=== PATIENT | female | born 1990 | race Caucasian/White ===

== ENCOUNTER 2016-03-20 14:29 | Outpatient (CLI) | payer OTHER ==
[2016-03-20 15:09] LABS: AMORPHOUS SEDIMENT,URINE TRACE /HPF; APPEARANCE,URINE CLOUDY; BILIRUBIN,URINE NEGATIVE (NEGATIVE); GLUCOSE, URINE NEGATIVE (NEGATIVE); KETONES,URINE NEGATIVE (NEGATIVE); LEUKOCYTE ESTERASE,URINE SMALL (NEGATIVE); NITRITE,URINE NEGATIVE (NEGATIVE); PROTEIN,URINE NEGATIVE (NEGATIVE); URINE SPECIFIC GRAVITY 1.013; UROBILINOGEN,URINE NEGATIVE mg/dL (<2.0)
[2016-03-20 15:16] LABS: ABSOLUTE LYMPHOCYTES (AUTO) 2.1 10^3/uL (0.5-4.7); ABSOLUTE MONOCYTES (AUTO) 0.7 10^3/uL (0.1-1.4); ABSOLUTE NEUT (AUTO) 7.7 10^3/uL (1.7-8.2); BASOPHILS % (AUTO) 0.2 % (0-2); EOSINOPHILS % (AUTO) 0.3 % (0-6); HEMOGLOBIN 11.5 g/dL (12.0-15.5); HGB HCT DIFFERENCE 1.5; LYMPHOCYTES % (AUTO) 19.9 % (13-45); MEAN CORPUSCULAR HEMOGLOBIN 30.5 pg (27.0-33.4); MEAN CORPUSCULAR HGB CONC 34.7 g/dL (32.0-36.0); MEAN CORPUSCULAR VOLUME 88 fl (80-97); MONOCYTES % (AUTO) 6.4 % (3-13); RED BLOOD COUNT 3.76 10^6/uL (3.72-5.28); RED CELL DISTRIBUTION WIDTH 12.1 % (11.5-14.0); SEGMENTED NEUTROPHILS % (AUTO) 73.2 % (42-78); WHITE BLOOD COUNT 10.5 10^3/uL (4.0-10.5)
[2016-03-20 15:28] LABS: ALANINE AMINOTRANSFERASE 27 U/L (9-52); ALBUMIN 3.6 g/dL (3.5-5.0); ALKALINE PHOSPHATASE 91 U/L (38-126); ANION GAP 11 (5-19); ASPARTATE AMINO TRANSFERASE 19 U/L (14-36); BILIRUBIN,TOTAL 0.4 mg/dL (0.2-1.3); BLOOD UREA NITROGEN 8 mg/dL (7-20); CALCIUM 9.5 mg/dL (8.4-10.2); CARBON DIOXIDE 20 mmol/L (22-30); CHLORIDE 108 mmol/L (98-107); CREATININE RESULT 0.53 mg/dL (0.52-1.25); GLUCOSE 82 mg/dL (75-110); LDH 355 U/L (313-618); POTASSIUM 3.7 mmol/L (3.6-5.0); SODIUM 139.1 mmol/L (137-145); TOTAL PROTEIN 6.2 g/dL (6.3-8.2); URIC ACID 3.2 mg/dL (2.5-6.2)
[2016-03-20 15:29] LABS: URINE BARBITURATES SCREEN NEGATIVE; URINE METHADONE SCREEN NEGATIVE; URINE OPIATES LOW NEGATIVE; URINE PHENCYCLIDINE SCREEN NEGATIVE
--- NOTE | 2016-03-20 16:01 | L&D Flow Sheet ---
LD Flowsheet Datetime Report Generated by CPN: 03/20/2016 16:00 Datetime: 03/20/2016 15:52 Patient Care Comments: Pt to Radiology in stable condition via wheelchair with transport personell (Lilo Vitrano, RN) Datetime: 03/20/2016 15:46 NBP Sys/Isamar/Mean (mmHg): 129 (QS system process) : 85 (QS system process) : 103 (QS system process) Pulse: 98 (QS system process) LaborFlag: Labor (QS system process) Datetime: 03/20/2016 15:45 Assessment A Monitor Interventions for FHR: Ultrasound Adjusted (Lilo Vitrano, RN) Datetime: 03/20/2016 15:38 I/O Interventions: Up to BR (Lilo Vitrano, RN) Datetime: 03/20/2016 15:32 Communication Communication Comments: Dr. Cameron on unit, reviewed strip, reviewed resulted labs. Orders received for Lipase and Amylase. (Lilo Vitrano, RN) Datetime: 03/20/2016 15:24 NBP Sys/Isamar/Mean (mmHg): 126 (QS system process) : 72 (QS system process) : 93 (QS system process) Pulse: 99 (QS system process) LaborFlag: Labor (QS system process) Datetime: 03/20/2016 15:21 Assessment A Monitor Interventions for FHR: Ultrasound Adjusted (Lilo Vitrano, RN) Datetime: 03/20/2016 15:20 Comments: Tracing maternal HR d/t pt movement, RN at bedside (Lilo Vitrano, RN) Datetime: 03/20/2016 15:12 Communication Communication Comments: Mahad Kevin CNM on unit. Reviewed nursing assessment and VS with CNM. Orders for STAT abomindal U/S for RUQ pain and umbilicus pain. (Lilo Vitrano, RN) Datetime: 03/20/2016 15:09 NBP Sys/Isamar/Mean (mmHg): 125 (QS system process) : 73 (QS system process) : 92 (QS system process) Pulse: 108 (QS system process) Respirations: 16 (Lilo Vitrano, RN) LaborFlag: Labor (QS system process) Datetime: 03/20/2016 15:07 Patient Care Comments: Labs drawn (Lilo Vitrano, RN) Datetime: 03/20/2016 14:56 Vital Signs Stage of : Labor (Lilo Vitrano, RN) Pain Pain Scale: 4 (Lilo Vitrano, RN) Pain Presence: Intermittent (Lilo Vitrano, RN) Pain Type: Sharp; Stabbing (Lilo Vitrano, RN) Pain Location: Abdomen (Annotations: Umbilicus/RUQ pain) (Lilo Vitrano, RN) Pain Coping: Pt in no apparent distress; no grimacing/guarding with palpation. Grimacing noted. (Lilo Vitrano, RN) Pain Assessment Comments: Worsens with movement, improves with rest (Lilo Vitrano, RN) Vaginal Exam Membrane Status: Intact (Lilo Vitrano, RN) Vaginal Bleeding: None (Lilo Vitrano, RN) Maternal Assessment Level of Consciousness: Fully Conscious (Lilo Vitrano, RN) DTR's/Clonus: DTRs 2+; No Clonus (Lilo Vitrano, RN) Headache: Denies (Lilo Vitrano, RN) Breath Sounds, Left: Clear and Equal (Lilo Vitrano, RN) Breath Sounds, Right: Clear and Equal (Lilo Vitrano, RN) Nausea/Vomiting: Denies (Lilo Vitrano, RN) RUQ Epigastric Pain: Present (Lilo Vitrano, RN) LaborFlag: Labor (QS system process) Datetime: 03/20/2016 14:54 NBP Sys/Isamar/Mean (mmHg): 130 (QS system process) : 80 (QS system process) : 100 (QS system process) Pulse: 94 (QS system process) Respirations: 16 (Lilo Vitrano, RN) LaborFlag: Labor (QS system process) Datetime: 03/20/2016 14:51 Vital Signs Stage of : Labor (Lilo Corbin, RN) Patient Care Patient Position/Activity: Right Tilt; Semi-Fowlers (Lilo Corbin RN) I/O Interventions: Clear Liquids Given (Lilo Corbin, RN) Teaching Instructional Method: Verbal; Patient Instructed; Family/Support Person Instructed; Verbalized Understanding (Lilo Corbin RN) Plan of Care: Plan of Care Discussed (Lilo Corbin RN) Unit Routine: [place] to Room; Call [place]; Bed; Unit Personnel; Monitoring; Safety/Fall Risk Prevention; Bathroom Privileges (Lilo Corbin RN)
--- NOTE | 2016-03-20 18:01 | L&D Flow Sheet ---
LD Flowsheet Datetime Report Generated by CPN: 03/20/2016 18:00 Datetime: 03/20/2016 17:44 Comments: RN at bedside adjusting US; palpable movement (Lilo Vitrano, RN) Datetime: 03/20/2016 17:30 Comments: RN at bedside adjusting US (Lilo Vitrano, RN) Datetime: 03/20/2016 17:27 Communication Comments: Orders received from Dr. Cameron to reapply monitoring while awaiting other provider (Lilo Vitrano, RN) Datetime: 03/20/2016 17:23 Communication Comments: Dr. Cameron reviewing pt condition with hospitalist; provider to assess pt when available. (Lilo Vitrano, RN) Datetime: 03/20/2016 17:20 NBP Sys/Isamar/Mean (mmHg): 123 (QS system process) : 67 (QS system process) : 89 (QS system process) Pulse: 94 (QS system process) LaborFlag: Labor (QS system process) Datetime: 03/20/2016 17:17 Communication Comments: Dr. Cameron on unit. Reviewed pt history, nursing assessment, VS, toco tracing, FHTs, lab results and ultrasound results. No new orders at this time. (Lilo Vitrano, RN) Datetime: 03/20/2016 17:06 NBP Sys/Isamar/Mean (mmHg): 122 (QS system process) : 72 (QS system process) : 91 (QS system process) Pulse: 97 (QS system process) LaborFlag: Labor (QS system process) Datetime: 03/20/2016 16:51 Communication Comments: Dr. Cameron at bedside to assess pt (Lilo Corbin RN) Datetime: 03/20/2016 16:50 NBP Sys/Isamar/Mean (mmHg): 135 (QS system process) : 84 (QS system process) : 104 (QS system process) Pulse: 115 (QS system process) Respirations: 16 (Lilo Corbin RN) Patient Care Comments: Pt returned from Radiology in stable condition. Mahad Kevin CNM on unit, reviewed strip. No need to resume monitoring per CNM. (Lilo Corbin RN) LaborFlag: Labor (QS system process)
--- NOTE | 2016-03-20 19:29 | PDOC CONSULTATION ---
Consultation Consult Date: 03/20/16 Attending physician:: GILLES DOWNS Consult reason:: Abdominal pain History of Present Illness Admission Date/PCP: ELIDA RODRIGUEZ MD History of Present Illness: NIRANJAN MARTINES is a 25 year old female presents to elevate a 33 week intrauterine , uncomplicated, with proximally 1 week history of umbilical pain, and pain in the right side. Worse while standing up. She denies history of mass, trauma, previous surgery at the umbilicus. Is admitted for observation. She had imaging studies including abdominal ultrasound, laboratory studies all unremarkable. Surgery was consulted because of persisting abdominal pain. Past Surgical History Past Surgical History: Reports: Orthopedic Surgery - right knee Social History Smoking Status: Never Smoker Family History Family History: Reviewed & Not Pertinent Parental Family History Reviewed: Yes Children Family History Reviewed: Yes Sibling(s) Family History Reviewed.: Yes Medication/Allergy Home Medications: Calcium Carbonate [Tums] 1 tab.chew PO DAILY PRN 03/20/16 Allergies/Adverse Reactions: latex [Latex] Allergy (Verified 04/07/12 07:27) swelling Physical Exam Vital Signs: Intake & Output 03/19/16 03/20/16 03/21/16 06:59 06:59 06:59 Weight 79.55 kg General appearance: PRESENT: no acute distress, other - Patient hooked to intra uterine monitoring devices Eye exam: PRESENT: EOMI Mouth exam: PRESENT: moist Neck exam: PRESENT: full ROM Respiratory exam: PRESENT: clear to auscultation wanda GI/Abdominal exam: PRESENT: other - Abdomen is distended consistent with intrauterine at approximately 33 weeks. At the umbilicus, there is minimal eventration of the super umbilical skin in this area is very tender to the patient. It is very difficult to palpate a mass. There are no signs of inflammation. Results Laboratory Results: 03/20/16 14:05 03/20/16 15:05 03/20/16 03/20/16 03/20/16 14:05 14:40 15:05 WBC 10.5 RBC 3.76 Hgb 11.5 L Hct 33.0 L MCV 88 MCH 30.5 MCHC 34.7 RDW 12.1 Plt Count 190 Seg Neutrophils % 73.2 Lymphocytes % 19.9 Monocytes % 6.4 Eosinophils % 0.3 Basophils % 0.2 Absolute Neutrophils 7.7 Absolute Lymphocytes 2.1 Absolute Monocytes 0.7 Absolute Eosinophils 0.0 Absolute Basophils 0.0 Sodium 139.1 Potassium 3.7 Chloride 108 H Carbon Dioxide 20 L Anion Gap 11 BUN 8 Creatinine 0.53 Est GFR ( Amer) > 60 Est GFR (Non-Af Amer) > 60 Glucose 82 Uric Acid 3.2 Calcium 9.5 Total Bilirubin 0.4 AST 19 ALT 27 Alkaline Phosphatase 91 Total Protein 6.2 L Albumin 3.6 Amylase Lipase Urine Color YELLOW Urine Appearance CLOUDY Urine pH 7.0 Ur Specific [place] 1.013 Urine Protein NEGATIVE Urine Glucose (UA) NEGATIVE Urine Ketones NEGATIVE Urine Blood NEGATIVE Urine Nitrite NEGATIVE Ur Leukocyte Esterase SMALL H Urine WBC (Auto) 1 03/20/16 15:05 WBC RBC Hgb Hct MCV MCH MCHC RDW Plt Count Seg Neutrophils % Lymphocytes % Monocytes % Eosinophils % Basophils % Absolute Neutrophils Absolute Lymphocytes Absolute Monocytes Absolute Eosinophils Absolute Basophils Sodium Potassium Chloride Carbon Dioxide Anion Gap BUN Creatinine Est GFR ( Amer) Est GFR (Non-Af Amer) Glucose Uric Acid Calcium Total Bilirubin AST ALT Alkaline Phosphatase Total Protein Albumin Amylase 85 Lipase 122.0 Urine Color Urine Appearance Urine pH Ur Specific [place] Urine Protein Urine Glucose (UA) Urine Ketones Urine Blood Urine Nitrite Ur Leukocyte Esterase Urine WBC (Auto) Impressions: Pelvis Ultrasound 03/20/16 00:00 IMPRESSION: No evidence of placental abruption. Appendix not visualized. Trimester of : Third trimester - 28 weeks to delivery. Abdomen Ultrasound 03/20/16 15:13 IMPRESSION: No acute or suspicious findings. Limitation. Assessment & Plan - Diagnosis (1) Umbilical hernia Plan: 1. The patient has clinical manifestations of a small umbilical hernia. This may be congenital, or acquired, made worse by intra-abdominal distention related to the , and repeated standing. 2. I reviewed the path anatomy of this problem with the patient, as well as the L&D staff. I recommended nonoperative management, depression garment therapy, and cautious observation. In addition role of keeping his stools soft , and avoiding straining emphasized. 3. Patient can follow up with [facility], and if hernia does not resolve or become more symptomatic in the interim, referral to [place] [facility] would be appropriate. - Time Time Spent: 30 to 50 Minutes
== END 2016-03-20 19:07 | disposition home or self-care (01) ==
LOC: LC 14:29
PROVIDERS: ATTEND Student in an Organized Health Care Education/Training Program
PROC: 4A1HXCZ Monitoring of Products of Conception, Cardiac Rate, External Approach (ICD-10-PCS; principal; 2016-03-20)
DX: O99.613 Diseases of the digestive system complicating pregnancy, third trimester (principal); K42.9 Umbilical hernia without obstruction or gangrene; R10.9 Unspecified abdominal pain; Z3A.33 33 weeks gestation of pregnancy
CPT/HCPCS: 36415; 76705; 76857; 80053; 80307; 81001; 82150; 83615; 83690; 84550; 85025

== ENCOUNTER 2016-05-02 15:12 | Outpatient (CLI) | payer OTHER ==
--- NOTE | 2016-05-02 16:54 | Non Stress Test Report ---
Non Stress Test Datetime Report Generated by CPN: 05/02/2016 16:54 DEMOGRAPHIC EGA NST: 37.0 INDICATION Indication for Study: Ordered by Provider MONITORING Monitor Explained: Monitor Explained; Test Explained; Patient Verbalized Understanding Time on Monitor: 05/02/2016 15:27 Time off Monitor: 05/02/2016 16:35 NST Duration: 68 NST INTERVENTIONS Physician Notified NST: Dr. Cameron BABY A: [id number] BABY A Movement : Present Contraction Frequency : Irr FHR Baseline : 140 Accelerations : 15X15 Decelerations : None Variability : Moderate 6-25bpm NST Review: Meets Criteria for Reactive NST NST Review and Verified By : Maine Beard RNC NST Results: Reactive NST REPORT Report Trigger: Send Report
== END 2016-05-02 16:45 | disposition home or self-care (01) ==
LOC: LC 15:12
PROVIDERS: ATTEND Specialist
PROC: 4A1HXCZ Monitoring of Products of Conception, Cardiac Rate, External Approach (ICD-10-PCS; principal; 2016-05-02)
DX: O47.1 False labor at or after 37 completed weeks of gestation (principal); Z3A.37 37 weeks gestation of pregnancy
CPT/HCPCS: 59025

== ENCOUNTER 2016-05-08 16:12 | Outpatient (CLI) | payer OTHER ==
[2016-05-08 17:03] LABS: APPEARANCE,URINE SLIGHTLY-CLOUDY; BILIRUBIN,URINE NEGATIVE (NEGATIVE); GLUCOSE, URINE NEGATIVE (NEGATIVE); KETONES,URINE NEGATIVE (NEGATIVE); LEUKOCYTE ESTERASE,URINE MODERATE (NEGATIVE); NITRITE,URINE NEGATIVE (NEGATIVE); PROTEIN,URINE NEGATIVE (NEGATIVE); URINE SPECIFIC GRAVITY 1.015; UROBILINOGEN,URINE NEGATIVE mg/dL (<2.0)
[2016-05-08 17:07] LABS: ABSOLUTE LYMPHOCYTES (AUTO) 1.7 10^3/uL (0.5-4.7); ABSOLUTE MONOCYTES (AUTO) 0.6 10^3/uL (0.1-1.4); ABSOLUTE NEUT (AUTO) 6.2 10^3/uL (1.7-8.2); BASOPHILS % (AUTO) 0.2 % (0-2); EOSINOPHILS % (AUTO) 0.4 % (0-6); HEMATOCRIT 35.6 % (36.0-47.0); HEMOGLOBIN 11.9 g/dL (12.0-15.5); HGB HCT DIFFERENCE 0.1; LYMPHOCYTES % (AUTO) 19.7 % (13-45); MEAN CORPUSCULAR HEMOGLOBIN 29.3 pg (27.0-33.4); MEAN CORPUSCULAR HGB CONC 33.5 g/dL (32.0-36.0); MEAN CORPUSCULAR VOLUME 88 fl (80-97); MONOCYTES % (AUTO) 7.2 % (3-13); RED BLOOD COUNT 4.06 10^6/uL (3.72-5.28); RED CELL DISTRIBUTION WIDTH 15.2 % (11.5-14.0); SEGMENTED NEUTROPHILS % (AUTO) 72.5 % (42-78); WHITE BLOOD COUNT 8.6 10^3/uL (4.0-10.5)
[2016-05-08 17:19] LABS: ALANINE AMINOTRANSFERASE 51 U/L (9-52); ALBUMIN 3.6 g/dL (3.5-5.0); ALKALINE PHOSPHATASE 137 U/L (38-126); ANION GAP 12 (5-19); ASPARTATE AMINO TRANSFERASE 36 U/L (14-36); BILIRUBIN,DIRECT 0.1 mg/dL (0.0-0.4); BILIRUBIN,TOTAL 0.4 mg/dL (0.2-1.3); BLOOD UREA NITROGEN 8 mg/dL (7-20); CALCIUM 9.2 mg/dL (8.4-10.2); CARBON DIOXIDE 18 mmol/L (22-30); CHLORIDE 108 mmol/L (98-107); CREATININE RESULT 0.53 mg/dL (0.52-1.25); GLUCOSE 71 mg/dL (75-110); LDH 549 U/L (313-618); SODIUM 137.7 mmol/L (137-145); TOTAL PROTEIN 6.1 g/dL (6.3-8.2); URIC ACID 4.2 mg/dL (2.5-6.2)
[2016-05-08 17:19] LABS: URINE BARBITURATES SCREEN NEGATIVE; URINE METHADONE SCREEN NEGATIVE; URINE OPIATES LOW NEGATIVE; URINE PHENCYCLIDINE SCREEN NEGATIVE
--- NOTE | 2016-05-08 17:40 | Non Stress Test Report ---
Non Stress Test Datetime Report Generated by CPN: 05/08/2016 17:40 DEMOGRAPHIC EGA NST: 37.6 INDICATION Indication for Study: Gestational Hypertension; Ordered by Provider VITAL SIGNS Temperature - NST: 98.4 Pulse - NST: 107 RESP - NST: 16 NBPSYS NST: 115 NBPDIA NST: 55 MONITORING Monitor Explained: Monitor Explained; Test Explained; Patient Verbalized Understanding Time on Monitor: 05/08/2016 16:41 Time off Monitor: 05/08/2016 17:26 NST Duration: 45 NST INTERVENTIONS NST Interventions: PO Hydration; Reposition Patient Physician Notified NST: C CLARK, CNM BABY A Movement : Present Contraction Frequency : NONE FHR Baseline : 135 Accelerations : 15X15 Decelerations : None Variability : Moderate 6-25bpm NST Review: Meets Criteria for Reactive NST NST Review and Verified By : SAMMI KOHLER RN NST Results: Reactive NST REPORT Report Trigger: Send Report
== END 2016-05-08 17:21 | disposition home or self-care (01) ==
LOC: LC 16:12
PROVIDERS: ATTEND Obstetrics & Gynecology
PROC: 4A1HXCZ Monitoring of Products of Conception, Cardiac Rate, External Approach (ICD-10-PCS; principal; 2016-05-08)
DX: O13.3 Gestational [pregnancy-induced] hypertension without significant proteinuria, third trimester (principal); Z3A.37 37 weeks gestation of pregnancy
CPT/HCPCS: 36415; 59025; 80053; 80307; 81001; 83615; 84550; 85025

== ENCOUNTER 2016-05-09 19:11 | Inpatient (IN) | payer OTHER ==
--- NOTE | 2016-05-09 20:02 | L&D Flow Sheet ---
LD Flowsheet Datetime Report Generated by CPN: 05/09/2016 20:00 Datetime: 05/09/2016 19:58 NBP Sys/Isamar/Mean (mmHg): 115 (QS system process) : 60 (QS system process) : 79 (QS system process) Pulse: 94 (QS system process) LaborFlag: Labor (QS system process) Datetime: 05/09/2016 19:36 Pain Scale: 0 (Tasia Adhikari) Pain Presence: None/Denies (Tasia Adhikari) Membrane Status: Intact (Tasia Adhikari) Vaginal Bleeding: None (Tasia Adhikari) Level of Consciousness: Fully Conscious (Tasia Adhikari) DTR's/Clonus: DTRs 2+; No Clonus (Tasia Adhikari) Headache: Denies (Tasia Adhikari) Breath Sounds, Left: Clear and Equal (Tasia Adhikari) Breath Sounds, Right: Clear and Equal (Tasia Adhikari) Nausea/Vomiting: Denies (Tasia Adhikari) RUQ Epigastric Pain: Denies (Tasia Adhikari) IV/Blood Work: IV Started; IV Bolus Started (Annotations: 18g left hand) (Tasia Adhikari) Patient Position/Activity: Left Tilt (Tasia Adhikari) Instructional Method: Verbal (Tasia Adhikari) Plan of Care: Plan of Care Discussed; Vaginal Delivery (Tasia Adhikari) Unit Routine: [place] to Room; Call [place]; Bed; Visiting Policy; Waiting Areas; Infant Security; Phone/Cell Phone Use; Photography; Unit Personnel; Consents Signed; Handwashing; Flu/Illness Precautions; Monitoring; IV Pumps; Safety/Fall Risk Prevention; Diet/Nutrition Services; Bathroom Privileges; Routine Time Outs; Medications (Tasia Adhikari) LaborFlag: Labor (QS system process) Datetime: 05/09/2016 19:28 NBP Sys/Isamar/Mean (mmHg): 133 (QS system process) : 68 (QS system process) : 91 (QS system process) Pulse: 108 (QS system process) LaborFlag: Labor (QS system process) Datetime: 05/09/2016 19:23 Patient Care Comments: patient to the unit for induction of labor (Tasia Adhikari) Datetime: 05/08/2016 17:15 LaborFlag: Labor (QS system process) Datetime: 05/08/2016 17:00 LaborFlag: Labor (QS system process) Datetime: 05/08/2016 16:45 LaborFlag: Labor (QS system process) Datetime: 05/02/2016 15:29 LaborFlag: Labor (QS system process) Datetime: 03/20/2016 18:33 LaborFlag: Labor (QS system process) Datetime: 03/20/2016 18:04 LaborFlag: Labor (QS system process) Datetime: 03/20/2016 17:20 LaborFlag: Labor (QS system process) Datetime: 03/20/2016 17:06 LaborFlag: Labor (QS system process) Datetime: 03/20/2016 16:50 LaborFlag: Labor (QS system process) Datetime: 03/20/2016 15:46 LaborFlag: Labor (QS system process) Datetime: 03/20/2016 15:24 LaborFlag: Labor (QS system process) Datetime: 03/20/2016 15:09 LaborFlag: Labor (QS system process) Datetime: 03/20/2016 14:56 LaborFlag: Labor (QS system process)
[2016-05-09] MEDS ORDERED: DINOPROSTONE 10 MG VAGINAL INSERT.SR ONE (20:05)
[2016-05-09 20:06] LABS: APPEARANCE,URINE SLIGHTLY-CLOUDY; BILIRUBIN,URINE NEGATIVE (NEGATIVE); GLUCOSE, URINE NEGATIVE (NEGATIVE); KETONES,URINE NEGATIVE (NEGATIVE); LEUKOCYTE ESTERASE,URINE MODERATE (NEGATIVE); NITRITE,URINE NEGATIVE (NEGATIVE); PROTEIN,URINE NEGATIVE (NEGATIVE); URINE SPECIFIC GRAVITY 1.013; UROBILINOGEN,URINE NEGATIVE mg/dL (<2.0)
[2016-05-09 20:26] LABS: URINE BARBITURATES SCREEN NEGATIVE; URINE METHADONE SCREEN NEGATIVE; URINE OPIATES LOW NEGATIVE; URINE PHENCYCLIDINE SCREEN NEGATIVE
[2016-05-09 20:33] LABS: ABSOLUTE MONOCYTES (AUTO) 0.6 10^3/uL (0.1-1.4); ABSOLUTE NEUT (AUTO) 5.8 10^3/uL (1.7-8.2); BASOPHILS % (AUTO) 0.3 % (0-2); EOSINOPHILS % (AUTO) 0.3 % (0-6); HEMATOCRIT 31.1 % (36.0-47.0); HEMOGLOBIN 10.7 g/dL (12.0-15.5); LYMPHOCYTES % (AUTO) 23.5 % (13-45); MEAN CORPUSCULAR HEMOGLOBIN 30.1 pg (27.0-33.4); MEAN CORPUSCULAR HGB CONC 34.4 g/dL (32.0-36.0); MEAN CORPUSCULAR VOLUME 87 fl (80-97); MONOCYTES % (AUTO) 6.6 % (3-13); RED BLOOD COUNT 3.56 10^6/uL (3.72-5.28); RED CELL DISTRIBUTION WIDTH 15.6 % (11.5-14.0); SEGMENTED NEUTROPHILS % (AUTO) 69.3 % (42-78); WHITE BLOOD COUNT 8.3 10^3/uL (4.0-10.5)
[2016-05-09] MEDS ORDERED: MAG HYDROX/AL HYDROX/SIMETH SUSP 30 ML UDCUP ONE (22:20)
[2016-05-10] MEDS ORDERED: MISOPROSTOL 0.1 MG TABLET PV ONE ×2 (03:13→19:42)
[2016-05-10] MEDS ORDERED: RINGERS SOLUTION,LACTATED 300 ML IV ONE (03:14)
[2016-05-10] MEDS ORDERED: DINOPROSTONE 10 MG VAGINAL INSERT.SR PV PRN (03:14)
[2016-05-10] MEDS ORDERED: OXYTOCIN/NORMAL SALINE 1,000 ML IV PRN (03:14)
[2016-05-10] MEDS ORDERED: RINGERS SOLUTION,LACTATED 1,000 ML IV PRN (03:14)
[2016-05-10] MEDS ORDERED: MISOPROSTOL 0.1 MG TABLET ONE ×2 (03:27→19:40)
--- NOTE | 2016-05-10 08:01 | L&D Flow Sheet ---
LD Flowsheet Datetime Report Generated by CPN: 05/10/2016 08:00 Datetime: 05/10/2016 07:44 Monitor Mode: External (Melania Bellavance, RNC) Frequency (min): 0 (Melania Bellavance, RNC) Resting Tone (Palpate): Relaxed (Melania Bellavance, RNC) Monitor Mode: External US (Melania Bellavance, RNC) FHR Baseline Rate : 135 (Melania Bellavance, RNC) Variability: Moderate 6-25 bpm (Melania Bellavance, RNC) Accelerations: 15X15 (Melania Bellavance, RNC) Decelerations: None (Melania Bellavance, RNC) Patient Position/Activity: Right Tilt (Melania Bellavance, RNC) Communication Comments: oob monitors off (Melania Bellavance, RNC) Datetime: 05/10/2016 07:28 NBP Sys/Isamar/Mean (mmHg): 133 (QS system process) : 83 (QS system process) : 102 (QS system process) Pulse: 81 (QS system process) LaborFlag: Labor (QS system process) Datetime: 05/10/2016 07:22 Level of Consciousness: Fully Conscious (Melania Bellavance, RNC) DTR's/Clonus: DTRs 2+; No Clonus (Melania Bellavance, RNC) Headache: Denies (Melania Bellavance, RNC) Breath Sounds, Left: Clear and Equal (Melania Bellavance, RNC) Breath Sounds, Right: Clear and Equal (Melania Bellavance, RNC) Nausea/Vomiting: Denies (Melania Bellavance, RNC) RUQ Epigastric Pain: Denies (Melania Bellavance, RNC) Datetime: 05/10/2016 07:19 I/O Interventions: Up to BR (Melania Bellavance, RNC) Datetime: 05/10/2016 07:14 Monitor Mode: External (Melania Bellavance, RNC) Frequency (min): 0 (Melania Bellavance, RNC) Resting Tone (Palpate): Relaxed (Melania Bellavance, RNC) Monitor Mode: External US (Melania Bellavance, RNC) FHR Baseline Rate : 135 (Melania Bellavance, RNC) Variability: Moderate 6-25 bpm (Melania Bellavance, RNC) Accelerations: 15X15 (Melania Bellavance, RNC) Decelerations: None (Melania Bellavance, RNC) IV/Blood Work: IV Infusing per Order; New IV Bag Hung (Melania Bellavance, RNC) Patient Position/Activity: Right Tilt (Melania Bellavance, RNC) Datetime: 05/10/2016 07:00 I/O Interventions: Up to BR (Melania Bellavance, RNC) Datetime: 05/10/2016 06:58 NBP Sys/Isamar/Mean (mmHg): 133 (QS system process) : 83 (QS system process) : 103 (QS system process) Pulse: 88 (QS system process) LaborFlag: Labor (QS system process) Datetime: 05/10/2016 06:54 Respirations: 18 (Tasia Adhikari) Monitor Mode: External; Palpation (Tasia Adhikari) Monitor Interventions for UA: Viola Adjusted (Tasia Adhikari) Frequency (min): none (Tasia Adhikari) Resting Tone (Palpate): Relaxed (Tasia Adhikari) Monitor Mode: External US (Tasia Adhikari) Monitor Interventions for FHR: Ultrasound Adjusted (Tasia Adhikari) FHR Baseline Rate : 135 (Tasia Adhikari) Variability: Moderate 6-25 bpm (Tasia Adhikari) Accelerations: 15X15 (Tasia Adhikari) Decelerations: None (Tasia Adhikari) Patient Position/Activity: Right Tilt (Tasia Adhikari) LaborFlag: Labor (QS system process) Datetime: 05/10/2016 06:31 Respirations: 18 (Tasia Adhikari) Monitor Mode: External; Palpation (Tasia Adhikari) Monitor Interventions for UA: Viola Adjusted (Tasia Adhikari) Frequency (min): none (Tasia Adhikari) Resting Tone (Palpate): Relaxed (Tasia Adhikari) Monitor Mode: External US (Tasia Adhikari) Monitor Interventions for FHR: Ultrasound Adjusted (Tasia Adhikari) FHR Baseline Rate : 135 (Tasia Adhikari) Variability: Moderate 6-25 bpm (Tasia Adhikari) Accelerations: 15X15 (Tasia Adhikari) Decelerations: None (Tasia Adhikari) Patient Position/Activity: Right Tilt (Tasia Adhikari) LaborFlag: Labor (QS system process) Datetime: 05/10/2016 06:28 NBP Sys/Isamar/Mean (mmHg): 127 (QS system process) : 79 (QS system process) : 97 (QS system process) Pulse: 76 (QS system process) LaborFlag: Labor (QS system process) Datetime: 05/10/2016 06:19 Patient Care Comments: patient up to the restroom (Tasia Adhikari) Datetime: 05/10/2016 06:01 Respirations: 18 (Tasia Adhikari) Monitor Mode: External; Palpation (Tasia Adhikari) Monitor Interventions for UA: Viola Adjusted (Tasia Adhikari) Frequency (min): none (Tasia Adhikari) Resting Tone (Palpate): Relaxed (Tasia Adhikari) Monitor Mode: External US (Tasia Adhikari) Monitor Interventions for FHR: Ultrasound Adjusted (Tasia Adhikari) FHR Baseline Rate : 130 (Tasia Adhikari) FHR Baseline Changes: No Baseline Change (Tasia Adhikari) Variability: Moderate 6-25 bpm (Tasia Adhikari) Accelerations: 15X15 (Tasia Adhikari) Decelerations: None (Tasia Adhikari) Patient Position/Activity: Right Tilt (Tasia Adhikari) LaborFlag: Labor (QS system process) Datetime: 05/10/2016 05:58 NBP Sys/Isamar/Mean (mmHg): 121 (QS system process) : 79 (QS system process) : 93 (QS system process) Pulse: 79 (QS system process) LaborFlag: Labor (QS system process) Datetime: 05/10/2016 05:32 Patient Care Comments: patient up to the restroom (Tasia Adhikari) Datetime: 05/10/2016 05:30 Respirations: 18 (Tasia Adhikari) Monitor Mode: External; Palpation (Tasia Adhikari) Monitor Interventions for UA: Viola Adjusted (Tasia Adhikari) Frequency (min): 8 (Tasia Adhikari) Quality: Mild (Tasia Adhikari) Duration (sec): 60-110 (Tasia Adhikari) Resting Tone (Palpate): Relaxed (Tasia Adhikari) Monitor Mode: External US (Tasia Adhikari) Monitor Interventions for FHR: Ultrasound Adjusted (Tasia Adhikari) FHR Baseline Rate : 140 (Tasia Adhikari) Variability: Moderate 6-25 bpm (Tasia Adhikari) Accelerations: 15X15 (Tasia Adhikari) Decelerations: Variable (Tasia Adhikari) Patient Position/Activity: Left Tilt (Tasia Adhikari) LaborFlag: Labor (QS system process) Datetime: 05/10/2016 05:28 NBP Sys/Isamar/Mean (mmHg): 124 (QS system process) : 74 (QS system process) : 94 (QS system process) Pulse: 90 (QS system process) LaborFlag: Labor (QS system process) Datetime: 05/10/2016 05:00 Respirations: 18 (Tasia Adhikari) Monitor Mode: External; Palpation (Tasia Adhikari) Monitor Interventions for UA: Viola Adjusted (Tasia Adhikari) Frequency (min): one ctx noted (Tasia Adhikari) Quality: Mild (Tasia Adhikari) Duration (sec): 60 (Tasia Adhikari) Resting Tone (Palpate): Relaxed (Tasia Adhikari) Monitor Mode: External US (Tasia Adhikari) Monitor Interventions for FHR: Ultrasound Adjusted (Tasia Adhikari) FHR Baseline Rate : 135 (Tasia Adhikari) Variability: Moderate 6-25 bpm (Tasia Adhikari) Accelerations: 15X15 (Tasia Adhikari) Decelerations: None (Tasia Adhikari) Patient Position/Activity: Left Tilt (Tasia Adhikari) LaborFlag: Labor (QS system process) Datetime: 05/10/2016 04:58 NBP Sys/Isamar/Mean (mmHg): 121 (QS system process) : 60 (QS system process) : 83 (QS system process) Pulse: 83 (QS system process) LaborFlag: Labor (QS system process) Datetime: 05/10/2016 04:31 Patient Care Comments: patient up to the restroom (Tasia Adhikari) Datetime: 05/10/2016 04:30 NBP Sys/Isamar/Mean (mmHg): 103 (QS system process) : 59 (QS system process) : 77 (QS system process) Pulse: 89 (QS system process) Respirations: 18 (Tasia Adhikari) Monitor Mode: External; Palpation (Tasia Adhikari) Monitor Interventions for UA: Viola Adjusted (Tasia Adhikari) Frequency (min): none (Tasia Adhikari) Resting Tone (Palpate): Relaxed (Tasia Adhikari) Monitor Mode: External US (Tasia Adhikari) Monitor Interventions for FHR: Ultrasound Adjusted (Tasia Adhikari) FHR Baseline Rate : 135 (Tasia Adhikari) Variability: Moderate 6-25 bpm (Tasia Adhikari) Accelerations: 15X15 (Tasia Adhikari) Decelerations: None (Tasia Adhikari) Patient Position/Activity: Right Tilt (Tasia Adhikari) LaborFlag: Labor (QS system process) Datetime: 05/10/2016 04:00 NBP Sys/Isamar/Mean (mmHg): 116 (QS system process) : 54 (QS system process) : 78 (QS system process) Pulse: 90 (QS system process) Respirations: 18 (Tasia Adhikari) Monitor Mode: External; Palpation (Tasia Adhikari) Monitor Interventions for UA: Viola Adjusted (Tasia Adhikari) Frequency (min): none (Tasia Adhikari) Resting Tone (Palpate): Relaxed (Tasia Adhikari) Monitor Mode: External US (Tasia Adhikari) Monitor Interventions for FHR: Ultrasound Adjusted (Tasia Adhikari) FHR Baseline Rate : 135 (Tasia Adhikari) Variability: Moderate 6-25 bpm (Tasia Adhikari) Accelerations: 15X15 (Tasia Adhikari) Decelerations: None (Tasia Adhikari) Patient Position/Activity: Right Tilt (Tasia Adhikari) LaborFlag: Labor (QS system process) Datetime: 05/10/2016 03:30 Respirations: 18 (Tasia Adhikari) Monitor Mode: External; Palpation (Tasia Adhikari) Monitor Interventions for UA: Viola Adjusted (Tasia Adhikari) Frequency (min): none (Tasia Adhikari) Resting Tone (Palpate): Relaxed (Tasia Adhikari) Monitor Mode: External US (Tasia Adhikari) Monitor Interventions for FHR: Ultrasound Adjusted (Tasia Adhikari) FHR Baseline Rate : 135 (Tasia Adhikari) Variability: Moderate 6-25 bpm (Tasia Adhikari) Accelerations: 15X15 (Tasia Adhikari) Decelerations: None (Tasia Adhikari) Cervical Ripening Agents: Cytotec @ (Annotations: 25mcg) (Tasia Adhikari) Patient Position/Activity: Left Tilt (Tasia Adhikari) LaborFlag: Labor (QS system process) Datetime: 05/10/2016 03:29 NBP Sys/Isamar/Mean (mmHg): 123 (QS system process) : 69 (QS system process) : 90 (QS system process) Pulse: 105 (QS system process) LaborFlag: Labor (QS system process) Datetime: 05/10/2016 03:10 Provider Notified (Name): Fitz notified that the cervidil had fallen out. Cervix 1/thick/-2 no change. Orders recieved for one dose of cytotec now. (Tasia Adhikari) Datetime: 05/10/2016 03:04 Dilatation (cm): 1.0 (Tasia Adhikari) Effacement (%): thick (Tasia Adhikari) Station: -2 (Tasia Adhikari) Exam by: Mary Ellen Adhikari Rn (Tasia Adhikari) Datetime: 05/10/2016 03:03 Patient Care Comments: patient up to the restroom (Tasia Adhikari) Patient Care Comments: patient up to the restroom and states the cervidil fell out. The cervidil was laying in the toilet on assessment. (Tasia Adhikari) Datetime: 05/10/2016 03:00 Respirations: 18 (Tasia Adhikari) Monitor Mode: External; Palpation (Tasia Adhikari) Monitor Interventions for UA: Viola Adjusted (Tasia Adhikari) Frequency (min): occasional (Tasia Adhikari) Quality: Mild (Tasia Adhikari) Resting Tone (Palpate): Relaxed (Tasia Adhikari) Monitor Mode: External US (Tasia Adhikari) Monitor Interventions for FHR: Ultrasound Adjusted (Tasia Adhikari) FHR Baseline Rate : 140 (Tasia Adhikari) Variability: Moderate 6-25 bpm (Tasia Adhikari) Accelerations: 15X15 (Tasia Adhikari) Decelerations: None (Tasia Adhikari) Patient Position/Activity: Right Tilt (Tasia Adhikari) LaborFlag: Labor (QS system process) Datetime: 05/10/2016 02:58 NBP Sys/Isamar/Mean (mmHg): 125 (QS system process) : 65 (QS system process) : 88 (QS system process) Pulse: 94 (QS system process) LaborFlag: Labor (QS system process) Datetime: 05/10/2016 02:32 NBP Sys/Isamar/Mean (mmHg): 122 (QS system process) : 73 (QS system process) : 93 (QS system process) Pulse: 100 (QS system process) LaborFlag: Labor (QS system process) Datetime: 05/10/2016 02:28 Patient Care Comments: patient up to the restroom (Tasia Adhikari) Datetime: 05/10/2016 02:27 Respirations: 18 (Tasia Adhikari) Monitor Mode: External; Palpation (Tasia Adhikari) Monitor Interventions for UA: Viola Adjusted (Tasia Adhikari) Frequency (min): none (Tasia Adhikari) Resting Tone (Palpate): Relaxed (Tasia Adhikari) Monitor Mode: External US (Tasia Adhikari) Monitor Interventions for FHR: Ultrasound Adjusted (Tasia Adhikari) FHR Baseline Rate : 135 (Tasia Adhikari) FHR Baseline Changes: No Baseline Change (Tasia Adhikari) Variability: Moderate 6-25 bpm (Tasia Adhikari) Accelerations: 15X15 (Tasia Adhikari) Decelerations: None (Tasia Adhikari) Patient Position/Activity: Right Tilt (Tasia Adhikari) LaborFlag: Labor (QS system process) Datetime: 05/10/2016 01:59 Respirations: 18 (Tasia Adhikari) Monitor Mode: External; Palpation (Tasia Adhikari) Monitor Interventions for UA: Viola Adjusted (Tasia Adhikari) Frequency (min): none (Tasia Adhikari) Resting Tone (Palpate): Relaxed (Tasia Adhikari) Monitor Mode: External US (Tasia Adhikari) Monitor Interventions for FHR: Ultrasound Adjusted (Tasia Adhikari) FHR Baseline Rate : 135 (Tasia Adhikari) FHR Baseline Changes: No Baseline Change (Tasia Adhikari) Variability: Moderate 6-25 bpm (Tasia Adhikari) Accelerations: 15X15 (Tasia Adhikari) Decelerations: None (Tasia Adhikari) Patient Position/Activity: Right Tilt (Tasia Adhikari) LaborFlag: Labor (QS system process) Datetime: 05/10/2016 01:58 NBP Sys/Isamar/Mean (mmHg): 117 (QS system process) : 74 (QS system process) : 90 (QS system process) Pulse: 90 (QS system process) LaborFlag: Labor (QS system process) Datetime: 05/10/2016 01:49 Patient Care Comments: patient up to the restroom (Tasia Adhikari) Datetime: 05/10/2016 01:30 Respirations: 18 (Tasia Adhikari) Monitor Mode: External; Palpation (Tasia Adhikari) Monitor Interventions for UA: Viola Adjusted (Tasia Adhikari) Frequency (min): one ctx noted (Tasia Adhikari) Quality: Mild (Tasia Adhikari) Duration (sec): 110 (Tasia Adhikari) Resting Tone (Palpate): Relaxed (Tasia Adhikari) Monitor Mode: External US (Tasia Adhikari) Monitor Interventions for FHR: Ultrasound Adjusted (Tasia Adhikari) FHR Baseline Rate : 135 (Tasia Adhikari) Variability: Moderate 6-25 bpm (Tasia Adhikari) Accelerations: 15X15 (Tasia Adhikari) Decelerations: Late (Tasia Adhikari) Comments: one late noticed after the one contraction noted. (Tasia Adhikari) Patient Position/Activity: Right Tilt (Tasia Adhikari) LaborFlag: Labor (QS system process) Datetime: 05/10/2016 01:28 NBP Sys/Isamar/Mean (mmHg): 137 (QS system process) : 73 (QS system process) : 96 (QS system process) Pulse: 101 (QS system process) LaborFlag: Labor (QS system process) Datetime: 05/10/2016 01:09 Patient Position/Activity: Right Tilt (Tasia Adhikari) Patient Care Comments: rn at the bedside for maternal repositioning (Tasia Adhikari) Datetime: 05/10/2016 01:00 Respirations: 18 (Tasia Adhikari) Monitor Mode: External; Palpation (Tasia Adhikari) Monitor Interventions for UA: Viola Adjusted (Tasia Adhikari) Frequency (min): none (Tasia Adhikari) Resting Tone (Palpate): Relaxed (Tasia Adhikari) Monitor Mode: External US (Tasia Adhikari) Monitor Interventions for FHR: Ultrasound Adjusted (Tasia Adhikari) FHR Baseline Rate : 140 (Tasia Adhikari) Variability: Moderate 6-25 bpm (Tasia Adhikari) Accelerations: 15X15 (Tasia Adhikari) Decelerations: None (Tasia Adhikari) Patient Position/Activity: Left Tilt (Tasia Adhikari) LaborFlag: Labor (QS system process) Datetime: 05/10/2016 00:58 NBP Sys/Isamar/Mean (mmHg): 116 (QS system process) : 68 (QS system process) : 85 (QS system process) Pulse: 85 (QS system process) LaborFlag: Labor (QS system process) Datetime: 05/10/2016 00:37 Patient Care Comments: patient up to the restroom (Tasia Adhikari) Datetime: 05/10/2016 00:30 Respirations: 18 (Tasia Adhikari) Monitor Mode: External; Palpation (Tasia Adhikari) Monitor Interventions for UA: Viola Adjusted (Tasia Adhikari) Frequency (min): none (Tasia Adhikari) Resting Tone (Palpate): Relaxed (Tasia Adhikari) Monitor Mode: External US (Tasia Adhikari) Monitor Interventions for FHR: Ultrasound Adjusted (Tasia Adhikari) FHR Baseline Rate : 135 (Tasia Adhikari) FHR Baseline Changes: No Baseline Change (Tasia Adhikari) Variability: Moderate 6-25 bpm (Tasia Adhikari) Accelerations: 15X15 (Tasia Adhikari) Decelerations: None (Tasia Adhikari) Patient Position/Activity: Left Tilt (Tasia Adhikari) LaborFlag: Labor (QS system process) Datetime: 05/10/2016 00:29 Medication Comments: patient does not want ambien for sleep (Tasia Adhikari) Datetime: 05/10/2016 00:28 NBP Sys/Isamar/Mean (mmHg): 126 (QS system process) : 71 (QS system process) : 93 (QS system process) Pulse: 92 (QS system process) LaborFlag: Labor (QS system process) Datetime: 05/10/2016 00:00 Respirations: 18 (Tasia Adhikari) Monitor Mode: External; Palpation (Tasia Adhikari) Monitor Interventions for UA: Viola Adjusted (Tasia Adhikari) Frequency (min): none (Tasia Adhikari) Resting Tone (Palpate): Relaxed (Tasia Adhikari) Monitor Mode: External US (Tasia Adhikari) Monitor Interventions for FHR: Ultrasound Adjusted (Tasia Adhikari) FHR Baseline Rate : 135 (Tasia Adhikari) Variability: Moderate 6-25 bpm (Tasia Adhikari) Accelerations: 15X15 (Tasia Adhikari) Decelerations: None (Tasia Adhikari) Patient Position/Activity: Right Tilt (Tasia Adhikari) LaborFlag: Labor (QS system process) Datetime: 05/09/2016 23:58 NBP Sys/Isamar/Mean (mmHg): 120 (QS system process) : 68 (QS system process) : 89 (QS system process) Pulse: 94 (QS system process) LaborFlag: Labor (QS system process) Datetime: 05/09/2016 23:43 Patient Care Comments: patient up to the restroom (Tasia Adhikari) Datetime: 05/09/2016 23:30 Respirations: 18 (Tasia Adhikari) Monitor Mode: External; Palpation (Tasia Adhikari) Monitor Interventions for UA: Viola Adjusted (Tasia Adhikari) Frequency (min): none (Tasia Adhikari) Resting Tone (Palpate): Relaxed (Tasia Adhikari) Monitor Mode: External US (Tasia Adhikari) Monitor Interventions for FHR: Ultrasound Adjusted (Tasia Adhikari) FHR Baseline Rate : 130 (Tasia Adhikari) Variability: Moderate 6-25 bpm (Tasia Adhikari) Accelerations: 15X15 (Tasia Adhikari) Decelerations: None (Tasia Adhikari) Patient Position/Activity: Right Tilt (Tasia Adhikari) LaborFlag: Labor (QS system process) Datetime: 05/09/2016 23:28 NBP Sys/Isamar/Mean (mmHg): 102 (QS system process) : 53 (QS system process) : 74 (QS system process) Pulse: 93 (QS system process) LaborFlag: Labor (QS system process) Datetime: 05/09/2016 23:00 Respirations: 18 (Tasia Adhikari) Monitor Mode: External; Palpation (Tasia Adhikari) Monitor Interventions for UA: Viola Adjusted (Tasia Adhikari) Frequency (min): none (Tasia Adhikari) Resting Tone (Palpate): Relaxed (Tasia Adhikari) Monitor Mode: External US (Tasia Adhikari) Monitor Interventions for FHR: Ultrasound Adjusted (Tasia Adhikari) FHR Baseline Rate : 130 (Tasia Adhikari) Variability: Moderate 6-25 bpm (Tasia Adhikari) Accelerations: 15X15 (Tasia Adhikari) Decelerations: None (Tasia Adhikari) Patient Position/Activity: Left Tilt (Tasia Adhikari) LaborFlag: Labor (QS system process) Datetime: 05/09/2016 22:58 NBP Sys/Isamar/Mean (mmHg): 105 (QS system process) : 53 (QS system process) : 74 (QS system process) Pulse: 85 (QS system process) LaborFlag: Labor (QS system process) Datetime: 05/09/2016 22:43 Patient Care Comments: patient up to the restroom (Tasia Adhikari) Datetime: 05/09/2016 22:30 Respirations: 18 (Tasia Adhikari) Monitor Mode: External; Palpation (Tasia Adhikari) Monitor Interventions for UA: Viola Adjusted (Tasia Adhikari) Frequency (min): none (Tasia Adhikari) Resting Tone (Palpate): Relaxed (Tasia Adhikari) Monitor Mode: External US (Tasia Adhikari) Monitor Interventions for FHR: Ultrasound Adjusted (Tasia Adhikari) FHR Baseline Rate : 125 (Tasia Adhikari) Variability: Moderate 6-25 bpm (Tasia Adhikari) Accelerations: 15X15 (Tasia Adhikari) Decelerations: None (Tasia Adhikari) Patient Position/Activity: Right Tilt (Tasia Adhikari) LaborFlag: Labor (QS system process) Datetime: 05/09/2016 22:28 NBP Sys/Isamar/Mean (mmHg): 123 (QS system process) : 78 (QS system process) : 96 (QS system process) Pulse: 100 (QS system process) LaborFlag: Labor (QS system process) Datetime: 05/09/2016 22:20 Antiemetics/Antacids: Maalox PO (ml) @ (Tasia Adhikari) Datetime: 05/09/2016 22:12 Patient Care Comments: patient up to the restroom (Tasia Adhikari) Datetime: 05/09/2016 21:59 Respirations: 18 (Tasia Adhikari) Monitor Mode: External; Palpation (Tasia Adhikari) Monitor Interventions for UA: Viola Adjusted (Tasia Adhikari) Frequency (min): none (Tasia Adhikari) Resting Tone (Palpate): Relaxed (Tasia Adhikari) Monitor Mode: External US (Tasia Adhikari) Monitor Interventions for FHR: Ultrasound Adjusted (Tasia Adhikari) FHR Baseline Rate : 130 (Tasia Adhikari) FHR Baseline Changes: No Baseline Change (Tasia Adhikari) Variability: Moderate 6-25 bpm (Tasia Adhikari) Accelerations: 15X15 (Tasia Adhikari) Decelerations: None (Tasia Adhikari) Patient Position/Activity: Right Tilt (Tasia Adhikari) LaborFlag: Labor (QS system process) Datetime: 05/09/2016 21:58 NBP Sys/Isamar/Mean (mmHg): 124 (QS system process) : 76 (QS system process) : 93 (QS system process) Pulse: 96 (QS system process) LaborFlag: Labor (QS system process) Datetime: 05/09/2016 21:29 Respirations: 18 (Tasia Adhikari) Monitor Mode: External; Palpation (Tasia Adhikari) Monitor Interventions for UA: Viola Adjusted (Tasia Adhikari) Frequency (min): none (Tasia Adhikari) Resting Tone (Palpate): Relaxed (Tasia Adhikari) Monitor Mode: External US (Tasia Adhikari) Monitor Interventions for FHR: Ultrasound Adjusted (Tasia Adhikari) FHR Baseline Rate : 135 (Tasia Adhikari) Variability: Moderate 6-25 bpm (Tasia Adhikari) Accelerations: 15X15 (Tasia Adhikari) Decelerations: None (Tasia Adhikari) Patient Position/Activity: Right Tilt (Tasia Adhikari) LaborFlag: Labor (QS system process) Datetime: 05/09/2016 21:28 NBP Sys/Isamar/Mean (mmHg): 137 (QS system process) : 68 (QS system process) : 94 (QS system process) Pulse: 96 (QS system process) LaborFlag: Labor (QS system process) Datetime: 05/09/2016 20:59 Respirations: 18 (Tasia Adhikari) Monitor Mode: External; Palpation (Tasia Adhikari) Frequency (min): occasional (Tasia Adhikari) Quality: Mild (Tasia Adhikari) Resting Tone (Palpate): Relaxed (Tasia Adhikari) Monitor Mode: External US (Tasia Adhikari) Monitor Interventions for FHR: Ultrasound Adjusted (Tasia Adhikari) FHR Baseline Rate : 130 (Tasia Adhikari) Variability: Moderate 6-25 bpm (Tasia Adhikari) Accelerations: 15X15 (Tasia Adhikari) Decelerations: None (Tasia Adhikari) Patient Position/Activity: Right Tilt (Tasia Adhikari) LaborFlag: Labor (QS system process) Datetime: 05/09/2016 20:58 NBP Sys/Isamar/Mean (mmHg): 127 (QS system process) : 68 (QS system process) : 91 (QS system process) Pulse: 91 (QS system process) LaborFlag: Labor (QS system process) Datetime: 05/09/2016 20:29 Respirations: 18 (Tasia Adhikari) Monitor Mode: External; Palpation (Tasia Adhikari) Monitor Interventions for UA: Viola Adjusted (Tasia Adhikari) Frequency (min): none (Tasia Adhikari) Resting Tone (Palpate): Relaxed (Tasia Adhikari) Monitor Mode: External US (Tasia Adhikari) Monitor Interventions for FHR: Ultrasound Adjusted (Tasia Adhikari) FHR Baseline Rate : 135 (Tasia Adhikari) Variability: Moderate 6-25 bpm (Tasia Adhikari) Accelerations: 15X15 (Tasia Adhikari) Decelerations: None (Tasia Adhikari) Patient Position/Activity: Right Tilt (Tasai Adhikari) LaborFlag: Labor (QS system process) Datetime: 05/09/2016 20:28 NBP Sys/Isamar/Mean (mmHg): 120 (QS system process) : 78 (QS system process) : 94 (QS system process) Pulse: 93 (QS system process) LaborFlag: Labor (QS system process) Datetime: 05/09/2016 20:15 Dilatation (cm): 1.0 (Tasia Adhikari) Effacement (%): thick (Tasia Adhikari) Station: -2 (Tasia Adhikari) Exam by: Mary Ellen Adhikari Rn (Tasia Adhikari) Cervical Ripening Agents: Cervidil (Tasia Adhikari) Datetime: 05/09/2016 20:13 Patient Care Comments: patient up to the restroom (Tasia Adhikari)
[2016-05-10] MEDS ORDERED: OXYTOCIN/NORMAL SALINE 20 UNIT/1,000 ML RTUINJ ONE (08:37)
--- NOTE | 2016-05-10 08:49 | L&D Progress Notes ---
PROGRESS NOTES Datetime Report Generated by CPN: 05/10/2016 08:49 PROGRESS NOTE Plan: Continue Present Management; Induction Informed Consent Obtained: Vaginal Delivery; Risks, Benefits and Alternatives Discussed Vital Signs : Reviewed Comment: 25 yo admitted for IOL CHTN EDC 05/23/16 EGA 38.1 PMHX- umbilical hernia- surgical consult exposure to hsv taking valtrex pt never had episode abdomen soft and nontender except umbilicus from hernia fhts reactive cervix- /-2 posterior +3 DTRs +1 clonus no lesions noted lungs ctab bps 127/79- 130/80s denies blurred vision/ no headaches S1S2 no murmurs cervidil and cytotec last night start pitocin per protocol anticipate VAGINAL EXAM Dilatation: 1 Effacement: 75 Station: -2 MEMBRANES Membranes: Intact FETUS A Monitoring: External US Accelerations: 15X15 Decelerations: None FHR Category: Category I SIGNATURE SIGNATURE: [id number] SIGNATURE: [id number] SIGNATURE: [id number] Assignment: Fatuma Cornell MD Signature: with User ID: [email or web address] : with User ID: [email or web address]
--- NOTE | 2016-05-10 18:19 | L&D Progress Notes ---
PROGRESS NOTES Datetime Report Generated by CPN: 05/10/2016 18:19 PROGRESS NOTE Comment: 25 yo admitted for chtn/ iol pmhx- exposure to hsv/ no episodes allergies- latex abdomen nontender FHTs 120s cervix /-1 AROM clear pt tolerated well no lesions noted continue with pitocin augmentation pitocin currently at 12 milliunits/min pain management prn- pt considering epidural spouse at bedside anticipate VAGINAL EXAM Dilatation: 3 Effacement: 75 Station: -2 MEMBRANES Membranes: Ruptured Amniotic Fluid Color: Clear FETUS A FHR - Baseline: 120 Monitoring: External US Variability: Moderate 6-25bpm Accelerations: 15X15 Decelerations: None FHR Category: Category I : 38.1 FETUS C SIGNATURE: [id number] Assignment: Fatuma Cornell MD Signature: with User ID: [email or web address] : with User ID: [email or web address]
[2016-05-10] MEDS ORDERED: EPHEDRINE SULFATE INJ 50 MG/1 ML AMPULE ONE (18:53)
[2016-05-10] MEDS ORDERED: BUPIVACAINE HCL 0.25 % INJ/PF (2.5 MG/1 ML) 30 ML VIAL ONE (18:54)
[2016-05-10] MEDS ORDERED: FENTANYL/BUPIVACAINE/NS/PF 200 MCG/100 ML RTUINJ EPI ONE (18:54)
[2016-05-10] MEDS ORDERED: MISOPROSTOL 0.1 MG TABLET PO ONE (19:41)
--- NOTE | 2016-05-10 20:03 | L&D Flow Sheet ---
LD Flowsheet Datetime Report Generated by CPN: 05/10/2016 20:00 Datetime: 05/10/2016 19:58 NBP Sys/Isamar/Mean (mmHg): 132 (QS system process) : 79 (QS system process) : 100 (QS system process) Pulse: 86 (QS system process) LaborFlag: Labor (QS system process) Datetime: 05/10/2016 19:42 NBP Sys/Isamar/Mean (mmHg): 128 (QS system process) : 61 (QS system process) : 88 (QS system process) Pulse: 103 (QS system process) LaborFlag: Labor (QS system process) Datetime: 05/10/2016 19:34 Communication: Provider Orders Received; Report Given to @ Dr Cornell (Marissa Jeong RN) Communication Comments: Report to Dr Cornell, on unit, Orders for cytotec 50 mcg PO and 25 mcg cytotec PV (Marissa Jeong RN) Datetime: 05/10/2016 19:28 NBP Sys/Isamar/Mean (mmHg): 122 (QS system process) : 55 (QS system process) : 79 (QS system process) Pulse: 90 (QS system process) LaborFlag: Labor (QS system process) Datetime: 05/10/2016 19:26 NBP Sys/Isamar/Mean (mmHg): 103 (QS system process) : 55 (QS system process) : 74 (QS system process) Pulse: 100 (QS system process) LaborFlag: Labor (QS system process) Datetime: 05/10/2016 19:25 NBP Sys/Isamar/Mean (mmHg): 99 (QS system process) : 54 (QS system process) : 74 (QS system process) Pulse: 86 (QS system process) LaborFlag: Labor (QS system process) Datetime: 05/10/2016 19:23 NBP Sys/Isamar/Mean (mmHg): 114 (QS system process) : 58 (QS system process) : 83 (QS system process) Pulse: 110 (QS system process) LaborFlag: Labor (QS system process) Datetime: 05/10/2016 19:22 NBP Sys/Isamar/Mean (mmHg): 129 (QS system process) : 60 (QS system process) : 89 (QS system process) Pulse: 97 (QS system process) LaborFlag: Labor (QS system process) Datetime: 05/10/2016 19:21 NBP Sys/Isamar/Mean (mmHg): 129 (QS system process) : 65 (QS system process) : 86 (QS system process) Pulse: 107 (QS system process) Dilatation (cm): 1.0 (Melania Bellavance, RNC) Effacement (%): 50 (Melania Bellavance, RNC) Station: -2 (Melania Bellavance, RNC) Exam by: Maine Jeong RN (Melania Bellavance, RNC) Vaginal Exam Comments: outer os 2cm (Melania Bellavance, RNC) LaborFlag: Labor (QS system process) Datetime: 05/10/2016 19:20 NBP Sys/Isamar/Mean (mmHg): 132 (QS system process) : 63 (QS system process) : 90 (QS system process) Pulse: 102 (QS system process) I/O Interventions: Yousif Cath Inserted (Melania Bellavance, RNC) LaborFlag: Labor (QS system process) Datetime: 05/10/2016 19:19 NBP Sys/Isamar/Mean (mmHg): 141 (QS system process) : 78 (QS system process) : 101 (QS system process) Pulse: 107 (QS system process) LaborFlag: Labor (QS system process) Datetime: 05/10/2016 19:18 NBP Sys/Isamar/Mean (mmHg): 133 (QS system process) : 61 (QS system process) : 88 (QS system process) Pulse: 114 (QS system process) Anesthesia Comments: patient lying down and monitors reapplied (Melania Caldwell, RNC) LaborFlag: Labor (QS system process) Datetime: 05/10/2016 19:17 NBP Sys/Isamar/Mean (mmHg): 129 (QS system process) : 69 (QS system process) : 94 (QS system process) Pulse: 116 (QS system process) LaborFlag: Labor (QS system process) Datetime: 05/10/2016 19:16 NBP Sys/Isamar/Mean (mmHg): 147 (QS system process) : 67 (QS system process) : 97 (QS system process) Pulse: 122 (QS system process) Patient Position/Activity: Supine (Marissa Jeong RN) Epidural Procedure Other: Pump Started (Melania Caldwell, RNC) LaborFlag: Labor (QS system process) Datetime: 05/10/2016 19:15 NBP Sys/Isamar/Mean (mmHg): 135 (QS system process) : 81 (QS system process) : 101 (QS system process) Pulse: 100 (QS system process) LaborFlag: Labor (QS system process) Datetime: 05/10/2016 19:14 Medication Comments: Pitocin discontinued for epidural procedure (Marissa Jean-Paul, RN) Communication Comments: Bedside report from D [facility] RN, care assumed (Marissa Jean-Paul, RN) Datetime: 05/10/2016 19:13 NBP Sys/Isamar/Mean (mmHg): 149 (QS system process) : 78 (QS system process) : 107 (QS system process) Pulse: 101 (QS system process) LaborFlag: Labor (QS system process) Datetime: 05/10/2016 19:12 NBP Sys/Isamar/Mean (mmHg): 207 (QS system process) : 94 (QS system process) : 118 (QS system process) Pulse: 118 (QS system process) LaborFlag: Labor (QS system process) Datetime: 05/10/2016 19:11 Epidural Procedure: Cath Placed (Melania Bellavance, RNC) Epidural Procedure: Test Dose (Melania Bellavance, RNC) Datetime: 05/10/2016 19:10 NBP Sys/Isamar/Mean (mmHg): 153 (QS system process) : 80 (QS system process) : 101 (QS system process) Pulse: 121 (QS system process) LaborFlag: Labor (QS system process) Datetime: 05/10/2016 19:09 NBP Sys/Isamar/Mean (mmHg): 157 (QS system process) : 90 (QS system process) : 117 (QS system process) Pulse: 121 (QS system process) LaborFlag: Labor (QS system process) Datetime: 05/10/2016 19:08 NBP Sys/Isamar/Mean (mmHg): 159 (QS system process) : 80 (QS system process) : 112 (QS system process) Pulse: 112 (QS system process) LaborFlag: Labor (QS system process) Datetime: 05/10/2016 19:06 Procedure Verify: Correct Patient Identity; Correct Side and Site are Marked; Accurate Procedure Consent Form; Agreement on Procedure to be Done; Correct Patient Position (Melania Bellavance, RNC) Anesthesia Plans: Epidural (Melania Bellavance, RNC) Epidural Positioning: Sitting (Melania Bellavance, RNC) Anesthesia Comments: Dr Mcgowan (Melania Bellavance, RNC) Datetime: 05/10/2016 19:04 NBP Sys/Isamar/Mean (mmHg): 137 (QS system process) : 90 (QS system process) : 110 (QS system process) Pulse: 112 (QS system process) Respirations: 18 (Melania Bellavance, RNC) Monitor Mode: External (Melania Bellavance, RNC) Frequency (min): irreg (Melania Bellavance, RNC) Quality: Mild (Melania Bellavance, RNC) Duration (sec): 40-50 (Emlania Bellavance, RNC) Duration Criteria: Less than Two 120 Second Contractions (Melania Bellavance, RNC) Pattern: Normal: <= 5 Contractions in 10 Minutes (Melania Bellavance, RNC) Resting Tone (Palpate): Relaxed (Melania Bellavance, RNC) Monitor Mode: External US (Melania Bellavance, RNC) FHR Baseline Rate : 135 (Melania Bellavance, RNC) Variability: Moderate 6-25 bpm (Melania Bellavance, RNC) Accelerations: 15X15 (Melania Bellavance, RNC) Decelerations: None (Melania Bellavance, RNC) Pitocin (milliunit): Pitocin Remains (milliunits) @ (Melania Bellavance, RNC) LaborFlag: Labor (QS system process) Datetime: 05/10/2016 18:42 NBP Sys/Isamar/Mean (mmHg): 122 (QS system process) : 76 (QS system process) : 97 (QS system process) Pulse: 93 (QS system process) Monitor Mode: External (Melania Bellavance, RNC) Frequency (min): irreg (Melania Bellavance, RNC) Quality: Mild (Melania Bellavance, RNC) Duration (sec): 40-50 (Melania Bellavance, RNC) Duration Criteria: Less than Two 120 Second Contractions (Melania Bellavance, RNC) Pattern: Normal: <= 5 Contractions in 10 Minutes (Melania Bellavance, RNC) Resting Tone (Palpate): Relaxed (Melania Bellavance, RNC) Monitor Mode: External US (Melania Bellavance, RNC) FHR Baseline Rate : 135 (Melania Bellavance, RNC) Variability: Moderate 6-25 bpm (Melania Bellavance, RNC) Accelerations: 15X15 (Melania Bellavance, RNC) Decelerations: None (Melania Bellavance, RNC) Pitocin (milliunit): Pitocin Remains (milliunits) @ (Melania Bellavance, RNC) LaborFlag: Labor (QS system process) Datetime: 05/10/2016 18:27 NBP Sys/Isamar/Mean (mmHg): 136 (QS system process) : 97 (QS system process) : 112 (QS system process) Pulse: 111 (QS system process) Respirations: 18 (Melania Bellavance, RNC) Monitor Mode: External (Melania Bellavance, RNC) Frequency (min): irreg (Melania Bellavance, RNC) Quality: Mild (Melania Bellavance, RNC) Duration (sec): 40-50 (Melania Bellavance, RNC) Duration Criteria: Less than Two 120 Second Contractions (Melania Bellavance, RNC) Pattern: Normal: <= 5 Contractions in 10 Minutes (Melania Bellavance, RNC) Resting Tone (Palpate): Relaxed (Melania Bellavance, RNC) Monitor Mode: External US (Melania Bellavance, RNC) FHR Baseline Rate : 135 (Melania Bellavance, RNC) Variability: Moderate 6-25 bpm (Melania Bellavance, RNC) Accelerations: 15X15 (Melania Bellavance, RNC) Decelerations: None (Melania Bellavance, RNC) Pitocin (milliunit): Pitocin Remains (milliunits) @ (Melania Bellavance, RNC) LaborFlag: Labor (QS system process) Datetime: 05/10/2016 18:15 Monitor Mode: External (Melania Bellavance, RNC) Frequency (min): irreg (Melania Bellavance, RNC) Quality: Mild (Melania Bellavance, RNC) Duration (sec): 40-50 (Melania Bellavance, RNC) Duration Criteria: Less than Two 120 Second Contractions (Melania Bellavance, RNC) Pattern: Normal: <= 5 Contractions in 10 Minutes (Melania Bellavance, RNC) Resting Tone (Palpate): Relaxed (Melania Bellavance, RNC) Monitor Mode: External US (Melania Bellavance, RNC) FHR Baseline Rate : 135 (Melania Bellavance, RNC) Variability: Moderate 6-25 bpm (Melania Bellavance, RNC) Accelerations: 15X15 (Melania Bellavance, RNC) Decelerations: None (Melania Bellavance, RNC) Pitocin (milliunit): Pitocin Remains (milliunits) @ (Melania Bellavance, RNC) Datetime: 05/10/2016 18:09 Dilatation (cm): 3.0 (Melania Bellavance, RNC) Effacement (%): 75 (Melania Bellavance, RNC) Station: -2 (Melania Bellavance, RNC) Exam by: A Emmel CNM (Melania Bellavance, RNC) Membrane Status: Ruptured (Melania Bellavance, RNC) Membranes Rupture Method: Artificial (Melania Bellavance, RNC) Amniotic Fluid Amount: Scant (Melania Bellavance, RNC) Datetime: 05/10/2016 18:07 Dilatation (cm): 1.0 (Melania Bellavance, RNC) Effacement (%): 75 (Melania Bellavance, RNC) Station: -2 (Melania Bellavance, RNC) Exam by: A Emmel cnm (Melania Bellavance, RNC) Datetime: 05/10/2016 18:00 Monitor Mode: External (Melania Bellavance, RNC) Frequency (min): irreg (Melania Bellavance, RNC) Quality: Mild (Melania Bellavance, RNC) Duration (sec): 40-50 (Melania Bellavance, RNC) Duration Criteria: Less than Two 120 Second Contractions (Melania Bellavance, RNC) Pattern: Normal: <= 5 Contractions in 10 Minutes (Melania Bellavance, RNC) Resting Tone (Palpate): Relaxed (Melania Bellavance, RNC) Monitor Mode: External US (Melania Bellavance, RNC) FHR Baseline Rate : 135 (Melania Bellavance, RNC) Variability: Moderate 6-25 bpm (Melania Bellavance, RNC) Accelerations: 15X15 (Melania Bellavance, RNC) Decelerations: None (Melania Bellavance, RNC) Pitocin (milliunit): Pitocin Remains (milliunits) @ (Melania Bellavance, RNC) Datetime: 05/10/2016 17:43 NBP Sys/Isamar/Mean (mmHg): 129 (QS system process) : 79 (QS system process) : 99 (QS system process) Pulse: 83 (QS system process) Monitor Mode: External (Grace Marhefka, RN) Frequency (min): irreg (Grace Marhefka, RN) Quality: Mild (Grace Marhefka, RN) Duration (sec): 40-50 (Grace Marhefka, RN) Duration Criteria: Less than Two 120 Second Contractions (Grace Griffin, RN) Pattern: Normal: <= 5 Contractions in 10 Minutes (Grace Griffin, RN) Resting Tone (Palpate): Relaxed (Grace Griffin, RN) Monitor Mode: External US (Grace Griffin, RN) FHR Baseline Rate : 135 (Grace Griffin, RN) Variability: Moderate 6-25 bpm (Grace Griffin, RN) Accelerations: 15X15 (Grace Griffin, RN) Decelerations: None (Grace Griffin, RN) Pitocin (milliunit): Pitocin Remains (milliunits) @ (Grace Griffin, RN) LaborFlag: Labor (QS system process) Datetime: 05/10/2016 17:27 NBP Sys/Isamar/Mean (mmHg): 130 (QS system process) NBP Sys/Isamar/Mean (mmHg): 124 (QS system process) : 86 (QS system process) : 84 (QS system process) : 101 (QS system process) : 100 (QS system process) Pulse: 94 (QS system process) Pulse: 91 (QS system process) Respirations: 16 (Grace Griffin, RN) Monitor Mode: External (Grace Griffin RN) Frequency (min): irreg (Grace Griffin, RN) Quality: Mild (Grace Griffin, RN) Duration (sec): 40-50 (Grace Griffin, RN) Duration Criteria: Less than Two 120 Second Contractions (Grace Marhefka, RN) Pattern: Normal: <= 5 Contractions in 10 Minutes (Grace Marhefka, RN) Resting Tone (Palpate): Relaxed (Grace Markarenfka, RN) Monitor Mode: External US (Grace Griffin, RN) FHR Baseline Rate : 135 (Grace Marhefka, RN) Variability: Moderate 6-25 bpm (Grace Marhefka, RN) Accelerations: 15X15 (Grace Marhefka, RN) Decelerations: None (Grace Markarenfka, RN) Pitocin (milliunit): Pitocin Remains (milliunits) @ (Grace Finnfka, RN) LaborFlag: Labor (QS system process) Datetime: 05/10/2016 17:15 Monitor Mode: External (Grace Lamka, RN) Frequency (min): irreg (Grace Marhefka, RN) Quality: Mild (Grace Marhefka, RN) Duration (sec): 40-50 (Grace Marhefka, RN) Duration Criteria: Less than Two 120 Second Contractions (Grace Marhefka, RN) Pattern: Normal: <= 5 Contractions in 10 Minutes (Grace Marhefka, RN) Resting Tone (Palpate): Relaxed (Grace Markarenfka, RN) Monitor Mode: External US (Grace Griffin, RN) FHR Baseline Rate : 135 (Grace Marhefka, RN) Variability: Moderate 6-25 bpm (Grace Marhefka, RN) Accelerations: 15X15 (Grace Marhefka, RN) Decelerations: None (Grace Marhefka, RN) Pitocin (milliunit): Pitocin Remains (milliunits) @ (Annotations: 10) (Grace Marhefka, RN) Datetime: 05/10/2016 17:04 Monitor Mode: External (Grace Marhefka, RN) Frequency (min): irrit (Grace Marhefka, RN) Quality: Mild (Grace Marhefka, RN) Resting Tone (Palpate): Relaxed (Grace Marhefka, RN) Monitor Mode: External US (Grace Marhefka, RN) FHR Baseline Rate : 135 (Grace Marhefka, RN) Variability: Moderate 6-25 bpm (Grace Marhefka, RN) Accelerations: 10X10 (Grace Marhefka, RN) Decelerations: None (Grace Marhefka, RN) Datetime: 05/10/2016 16:45 Monitor Mode: External (Grace Marhefka, RN) Frequency (min): 2-3 (Grace Marhefka, RN) Quality: Mild (Grace Marhefka, RN) Duration (sec): 50-60 (Grace Griffin RN) Resting Tone (Palpate): Relaxed (Grace Griffin RN) Monitor Mode: External US (Grace Griffin RN) Monitor Interventions for FHR: Ultrasound Adjusted (Grace Griffin RN) FHR Baseline Rate : 135 (Grace Griffin RN) Variability: Moderate 6-25 bpm (Grace Griffin RN) Accelerations: 15X15 (Grace Griffin RN) Decelerations: None (Grace Griffin RN) Pain Scale: 0 (Grace Griffin RN) Pitocin (milliunit): Pitocin Remains (milliunits) @ (Grace Griffin RN) IV/Blood Work: IV Infusing per Order (Grace Griffin RN) I/O Interventions: Up to BR (rGace Griffin RN) LaborFlag: Labor (QS system process) Datetime: 05/10/2016 16:30 Monitor Mode: External (Melania Bellavance, RNC) Frequency (min): 2-3 (Melania Bellavance, RNC) Quality: Mild (Melania Bellavance, RNC) Duration (sec): 50-60 (Melania Bellavance, RNC) Resting Tone (Palpate): Relaxed (Melania Bellavance, RNC) Monitor Mode: External US (Melania Belldavonnce, RNC) Monitor Interventions for FHR: Ultrasound Adjusted (Melania Belldavonnce, RNC) FHR Baseline Rate : 135 (Melania Belldavonnce, RNC) Variability: Moderate 6-25 bpm (Melania Bellavance, RNC) Accelerations: 15X15 (Melania Bellavance, RNC) Decelerations: None (Melania Bellavance, RNC) Pain Scale: 0 (Melania Bellavance, RNC) Pitocin (milliunit): Pitocin Remains (milliunits) @ (Melania Bellavance, RNC) IV/Blood Work: IV Infusing per Order (Melania Bellavance, RNC) I/O Interventions: Up to BR (Melania Bellavance, RNC) LaborFlag: Labor (QS system process) Datetime: 05/10/2016 16:15 Monitor Mode: External (Melania Bellavance, RNC) Frequency (min): 2-3 (Melania Bellavance, RNC) Quality: Mild (Melania Bellavance, RNC) Duration (sec): 50-60 (Melania Bellavance, RNC) Resting Tone (Palpate): Relaxed (Melania Bellavance, RNC) Monitor Mode: External US (Melania Bellavance, RNC) Monitor Interventions for FHR: Ultrasound Adjusted (Melania Bellavance, RNC) FHR Baseline Rate : 135 (Melania Bellavance, RNC) Variability: Moderate 6-25 bpm (Melania Bellavance, RNC) Accelerations: 15X15 (Melania Bellavance, RNC) Decelerations: None (Melania Bellavance, RNC) Pain Scale: 0 (Melania Bellavance, RNC) Pitocin (milliunit): Pitocin Remains (milliunits) @ (Melania Bellavance, RNC) IV/Blood Work: IV Infusing per Order (Melania Bellavance, RNC) I/O Interventions: Up to BR (Melania Bellavance, RNC) LaborFlag: Labor (QS system process) Datetime: 05/10/2016 16:05 NBP Sys/Isamar/Mean (mmHg): 132 (QS system process) : 80 (QS system process) : 101 (QS system process) Pulse: 90 (QS system process) LaborFlag: Labor (QS system process) Datetime: 05/10/2016 16:01 Monitor Mode: External (Melania Bellavance, RNC) Frequency (min): 2-3 (Melania Bellavance, RNC) Quality: Mild (Melania Bellavance, RNC) Duration (sec): 50-60 (Melania Bellavance, RNC) Resting Tone (Palpate): Relaxed (Melania Bellavance, RNC) Monitor Mode: External US (Melania Bellavance, RNC) Monitor Interventions for FHR: Ultrasound Adjusted (Melania Bellavance, RNC) FHR Baseline Rate : 135 (Melania Bellavance, RNC) Variability: Moderate 6-25 bpm (Melania Bellavance, RNC) Accelerations: 15X15 (Melania Bellavance, RNC) Decelerations: None (Melania Bellavance, RNC) Pain Scale: 0 (Melania Bellavance, RNC) Pitocin (milliunit): Pitocin Remains (milliunits) @ (Melania Bellavance, RNC) IV/Blood Work: IV Infusing per Order (Melania Bellavance, RNC) I/O Interventions: Up to BR (Melania Bellavance, RNC) LaborFlag: Labor (QS system process) Datetime: 05/10/2016 15:45 Monitor Mode: External (Melania Bellavance, RNC) Frequency (min): 2-3 (Melania Bellavance, RNC) Quality: Mild (Melania Bellavance, RNC) Duration (sec): 50-60 (Melania Bellavance, RNC) Resting Tone (Palpate): Relaxed (Melania Bellavance, RNC) Monitor Mode: External US (Melania Bellavance, RNC) Monitor Interventions for FHR: Ultrasound Adjusted (Melania Bellavance, RNC) FHR Baseline Rate : 135 (Melanai Bellavance, RNC) Variability: Moderate 6-25 bpm (Melania Bellavance, RNC) Accelerations: 15X15 (Melania Bellavance, RNC) Decelerations: None (Melania Bellavance, RNC) Pain Scale: 0 (Melania Bellavance, RNC) Pitocin (milliunit): Pitocin Remains (milliunits) @ (Melania Bellavance, RNC) IV/Blood Work: IV Infusing per Order (Melania Bellavance, RNC) LaborFlag: Labor (QS system process) Datetime: 05/10/2016 15:30 Monitor Mode: External (Melania Bellavance, RNC) Frequency (min): 2-3 (Melania Bellavance, RNC) Quality: Mild (Melania Bellavance, RNC) Duration (sec): 50-60 (Melania Bellavance, RNC) Resting Tone (Palpate): Relaxed (Melania Bellavance, RNC) Monitor Mode: External US (Melania Bellavance, RNC) Monitor Interventions for FHR: Ultrasound Adjusted (Melania Bellavance, RNC) FHR Baseline Rate : 135 (Melania Bellavance, RNC) Variability: Moderate 6-25 bpm (Melania Bellavance, RNC) Accelerations: 15X15 (Melania Bellavance, RNC) Decelerations: None (Melania Bellavance, RNC) Pain Scale: 0 (Melania Bellavance, RNC) Pitocin (milliunit): Pitocin Remains (milliunits) @ (Melania Bellavance, RNC) IV/Blood Work: IV Infusing per Order (Melania Bellavance, RNC) LaborFlag: Labor (QS system process) Datetime: 05/10/2016 15:15 Monitor Mode: External (Melania Bellavance, RNC) Frequency (min): 2-3 (Melania Bellavance, RNC) Quality: Mild (Melania Bellavance, RNC) Duration (sec): 50-60 (Melania Bellavance, RNC) Resting Tone (Palpate): Relaxed (Melania Bellavance, RNC) Monitor Mode: External US (Melania Bellavance, RNC) Monitor Interventions for FHR: Ultrasound Adjusted (Melania Bellavance, RNC) FHR Baseline Rate : 135 (Melania Bellavance, RNC) Variability: Moderate 6-25 bpm (Melania Bellavance, RNC) Accelerations: 15X15 (Melania Bellavance, RNC) Decelerations: None (Melania Bellavance, RNC) Pain Scale: 0 (Melania Bellavance, RNC) Pitocin (milliunit): Pitocin Remains (milliunits) @ (Melania Bellavance, RNC) IV/Blood Work: IV Infusing per Order (Melania Bellavance, RNC) LaborFlag: Labor (QS system process) Datetime: 05/10/2016 15:03 Monitor Mode: External (Melania Bellavance, RNC) Frequency (min): 2-3 (Melania Bellavance, RNC) Quality: Mild (Melania Bellavance, RNC) Duration (sec): 50-60 (Melania Bellavance, RNC) Resting Tone (Palpate): Relaxed (Melania Bellavance, RNC) Monitor Mode: External US (Melania Bellavance, RNC) Monitor Interventions for FHR: Ultrasound Adjusted (Melania Bellavance, RNC) FHR Baseline Rate : 135 (Melania Bellavance, RNC) Variability: Moderate 6-25 bpm (Melania Bellavance, RNC) Accelerations: 15X15 (Melania Bellavance, RNC) Decelerations: None (Melania Bellavance, RNC) Pain Scale: 0 (Melania Bellavance, RNC) Pitocin (milliunit): Pitocin Remains (milliunits) @ (Melania Bellavance, RNC) IV/Blood Work: IV Infusing per Order (Melania Bellavance, RNC) LaborFlag: Labor (QS system process) Datetime: 05/10/2016 14:45 Monitor Mode: External (Melania Bellavance, RNC) Frequency (min): 2-3 (Melania Bellavance, RNC) Quality: Mild (Melania Bellavance, RNC) Duration (sec): 50-60 (Melania Bellavance, RNC) Resting Tone (Palpate): Relaxed (Melania Bellavance, RNC) Monitor Mode: External US (Melania Bellavance, RNC) Monitor Interventions for FHR: Ultrasound Adjusted (Melania Bellavance, RNC) FHR Baseline Rate : 135 (Melania Bellavance, RNC) Variability: Moderate 6-25 bpm (Melania Bellavance, RNC) Accelerations: 15X15 (Melania Bellavance, RNC) Decelerations: None (Melania Bellavance, RNC) Pain Scale: 0 (Melania Bellavance, RNC) Pitocin (milliunit): Pitocin Remains (milliunits) @ (Melania Bellavance, RNC) IV/Blood Work: IV Infusing per Order (Melania Bellavance, RNC) LaborFlag: Labor (QS system process) Datetime: 05/10/2016 14:30 Monitor Mode: External (Melania Bellavance, RNC) Frequency (min): 2-3 (Melania Bellavance, RNC) Quality: Mild (Melania Bellavance, RNC) Duration (sec): 50-60 (Melania Bellavance, RNC) Resting Tone (Palpate): Relaxed (Melania Bellavance, RNC) Monitor Mode: External US (Melania Bellavance, RNC) Monitor Interventions for FHR: Ultrasound Adjusted (Melania Bellavance, RNC) FHR Baseline Rate : 135 (Melania Bellavance, RNC) Variability: Moderate 6-25 bpm (Melania Bellavance, RNC) Accelerations: 15X15 (Melania Bellavance, RNC) Decelerations: None (Melania Bellavance, RNC) Pain Scale: 0 (Melania Bellavance, RNC) Pitocin (milliunit): Pitocin Remains (milliunits) @ (Melania Bellavance, RNC) IV/Blood Work: IV Infusing per Order (Melania Bellavance, RNC) LaborFlag: Labor (QS system process) Datetime: 05/10/2016 14:15 Monitor Mode: External (Melania Bellavance, RNC) Frequency (min): 2-3 (Melania Bellavance, RNC) Quality: Mild (Melania Bellavance, RNC) Duration (sec): 50-60 (Melania Bellavance, RNC) Resting Tone (Palpate): Relaxed (Melania Bellavance, RNC) Monitor Mode: External US (Melania Bellavance, RNC) Monitor Interventions for FHR: Ultrasound Adjusted (Melania Bellavance, RNC) FHR Baseline Rate : 135 (Melania Bellavance, RNC) Variability: Moderate 6-25 bpm (Melania Bellavance, RNC) Accelerations: 15X15 (Melania Bellavance, RNC) Decelerations: None (Melania Bellavance, RNC) Pain Scale: 0 (Melania Bellavance, RNC) Pitocin (milliunit): Pitocin Remains (milliunits) @ (Melania Bellavance, RNC) IV/Blood Work: IV Infusing per Order (Melania Bellavance, RNC) LaborFlag: Labor (QS system process) Datetime: 05/10/2016 13:57 Monitor Mode: External (Melania Bellavance, RNC) Frequency (min): 2-3 (Melania Bellavance, RNC) Quality: Mild (Melania Bellavance, RNC) Duration (sec): 50-60 (Melania Bellavance, RNC) Resting Tone (Palpate): Relaxed (Melania Bellavance, RNC) Monitor Mode: External US (Melania Bellavance, RNC) Monitor Interventions for FHR: Ultrasound Adjusted (Melania Bellavance, RNC) FHR Baseline Rate : 135 (Melania Bellavance, RNC) Variability: Moderate 6-25 bpm (Melania Bellavance, RNC) Accelerations: 15X15 (Melania Bellavance, RNC) Decelerations: None (Melania Bellavance, RNC) Pain Scale: 0 (Melania Bellavance, RNC) Pitocin (milliunit): Pitocin Remains (milliunits) @ (Melania Bellavance, RNC) IV/Blood Work: IV Infusing per Order (Melania Bellavance, RNC) LaborFlag: Labor (QS system process) Datetime: 05/10/2016 13:46 Monitor Mode: External (Melania Bellavance, RNC) Frequency (min): 2-3 (Melania Bellavance, RNC) Quality: Mild (Melania Bellavance, RNC) Duration (sec): 50-60 (Melania Bellavance, RNC) Resting Tone (Palpate): Relaxed (Melania Bellavance, RNC) Monitor Mode: External US (Melania Bellavance, RNC) Monitor Interventions for FHR: Ultrasound Adjusted (Melania Bellavance, RNC) FHR Baseline Rate : 135 (Melania Bellavance, RNC) Variability: Moderate 6-25 bpm (Melania Bellavance, RNC) Accelerations: 15X15 (Melania Bellavance, RNC) Decelerations: None (Melania Bellavance, RNC) Pain Scale: 0 (Melania Bellavance, RNC) Pitocin (milliunit): Pitocin Remains (milliunits) @ (Annotations: 10) (Melania Bellavance, RNC) IV/Blood Work: IV Infusing per Order (Melania Bellavance, RNC) LaborFlag: Labor (QS system process) Datetime: 05/10/2016 13:30 Monitor Mode: External (Melania Bellavance, RNC) Frequency (min): 2-3 (Melania Bellavance, RNC) Quality: Mild (Melania Bellavance, RNC) Duration (sec): 50-60 (Melania Bellavance, RNC) Resting Tone (Palpate): Relaxed (Melania Bellavance, RNC) Monitor Mode: External US (Melania Bellavance, RNC) Monitor Interventions for FHR: Ultrasound Adjusted (Melania Bellavance, RNC) FHR Baseline Rate : 135 (Melania Bellavance, RNC) Variability: Moderate 6-25 bpm (Melania Bellavance, RNC) Accelerations: 15X15 (Melania Bellavance, RNC) Decelerations: None (Melania Bellavance, RNC) Pain Scale: 0 (Melania Bellavance, RNC) Pitocin (milliunit): Pitocin Remains (milliunits) @ (Annotations: 10) (Melania Bellavance, RNC) IV/Blood Work: IV Infusing per Order (Melania Bellavance, RNC) LaborFlag: Labor (QS system process) Datetime: 05/10/2016 13:15 Monitor Mode: External (Melania Bellavance, RNC) Frequency (min): 2-3 (Melania Bellavance, RNC) Quality: Mild (Melania Bellavance, RNC) Duration (sec): 50-60 (Melania Bellavance, RNC) Resting Tone (Palpate): Relaxed (Melania Bellavance, RNC) Monitor Mode: External US (Melania Bellavance, RNC) Monitor Interventions for FHR: Ultrasound Adjusted (Melania Bellavance, RNC) FHR Baseline Rate : 135 (Melania Bellavance, RNC) Variability: Moderate 6-25 bpm (Melania Bellavance, RNC) Accelerations: 15X15 (Melania Bellavance, RNC) Decelerations: None (Melania Bellavance, RNC) Pain Scale: 0 (Melania Bellavance, RNC) Pitocin (milliunit): Pitocin Remains (milliunits) @ (Annotations: 10) (Melania Bellavance, RNC) IV/Blood Work: IV Infusing per Order (Melania Bellavance, RNC) LaborFlag: Labor (QS system process) Datetime: 05/10/2016 13:00 Monitor Mode: External (Melania Bellavance, RNC) Frequency (min): 2-5 (Melania Bellavance, RNC) Quality: Mild (Melania Bellavance, RNC) Duration (sec): 50-60 (Melania Bellavance, RNC) Resting Tone (Palpate): Relaxed (Melania Bellavance, RNC) Monitor Mode: External US (Melania Bellavance, RNC) Monitor Interventions for FHR: Ultrasound Adjusted (Melania Bellavance, RNC) FHR Baseline Rate : 135 (Melania Bellavance, RNC) Variability: Moderate 6-25 bpm (Melania Bellavance, RNC) Accelerations: 15X15 (Melania Bellavance, RNC) Decelerations: None (Melania Bellavance, RNC) Pain Scale: 0 (Melania Bellavance, RNC) Pitocin (milliunit): Pitocin Decreased to (milliunits) @ (Annotations: 10) (Melania Bellavance, RNC) IV/Blood Work: IV Infusing per Order (Melania Bellavance, RNC) LaborFlag: Labor (QS system process) Datetime: 05/10/2016 12:46 Monitor Mode: External (Melania Bellavance, RNC) Frequency (min): 2-5 (Melania Bellavance, RNC) Quality: Mild (Melania Bellavance, RNC) Duration (sec): 50-60 (Melania Bellavance, RNC) Resting Tone (Palpate): Relaxed (Melania Bellavance, RNC) Monitor Mode: External US (Melania Bellavance, RNC) Monitor Interventions for FHR: Ultrasound Adjusted (Melania Bellavance, RNC) FHR Baseline Rate : 135 (Melania Bellavance, RNC) Variability: Moderate 6-25 bpm (Melania Bellavance, RNC) Accelerations: 15X15 (Melania Bellavance, RNC) Decelerations: None (Melania Bellavance, RNC) Pain Scale: 0 (Melania Bellavance, RNC) Pitocin (milliunit): Pitocin Remains (milliunits) @ (Melania Bellavance, RNC) IV/Blood Work: IV Infusing per Order (Melania Bellavance, RNC) LaborFlag: Labor (QS system process) Datetime: 05/10/2016 12:30 Monitor Mode: External (Mealnia Bellavance, RNC) Frequency (min): 2-5 (Melania Bellavance, RNC) Quality: Mild (Melania Bellavance, RNC) Duration (sec): 50-60 (Melania Bellavance, RNC) Resting Tone (Palpate): Relaxed (Melania Bellavance, RNC) Monitor Mode: External US (Melania Bellavance, RNC) Monitor Interventions for FHR: Ultrasound Adjusted (Melania Bellavance, RNC) FHR Baseline Rate : 135 (Melania Bellavance, RNC) Variability: Moderate 6-25 bpm (Melania Bellavance, RNC) Accelerations: 15X15 (Melania Bellavance, RNC) Decelerations: None (Melanai Bellavance, RNC) Pain Scale: 0 (Melania Bellavance, RNC) Pitocin (milliunit): Pitocin Remains (milliunits) @ (Melania Bellavance, RNC) IV/Blood Work: IV Infusing per Order (Melania Bellavance, RNC) LaborFlag: Labor (QS system process) Datetime: 05/10/2016 12:24 NBP Sys/Isamar/Mean (mmHg): 134 (QS system process) : 88 (QS system process) : 105 (QS system process) Pulse: 92 (QS system process) Respirations: 16 (Melania Bellavance, RNC) LaborFlag: Labor (QS system process) Datetime: 05/10/2016 12:15 Monitor Mode: External (Melania Bellavance, RNC) Frequency (min): 2-5 (Melania Bellavance, RNC) Quality: Mild (Melania Bellavance, RNC) Duration (sec): 50-60 (Melania Bellavance, RNC) Resting Tone (Palpate): Relaxed (Melania Bellavance, RNC) Monitor Mode: External US (Melania Bellavance, RNC) Monitor Interventions for FHR: Ultrasound Adjusted (Melania Bellavance, RNC) FHR Baseline Rate : 135 (Melania Bellavance, RNC) Variability: Moderate 6-25 bpm (Melania Bellavance, RNC) Accelerations: 15X15 (Melania Bellavance, RNC) Decelerations: None (Melania Bellavance, RNC) Pain Scale: 0 (Melania Bellavance, RNC) Pitocin (milliunit): Pitocin Remains (milliunits) @ (Melania Bellavance, RNC) IV/Blood Work: IV Infusing per Order (Melania Bellavance, RNC) LaborFlag: Labor (QS system process) Datetime: 05/10/2016 12:00 Monitor Mode: External (Melania Bellavance, RNC) Frequency (min): 2-5 (Melania Bellavance, RNC) Quality: Mild (Melania Bellavance, RNC) Duration (sec): 50-60 (Melania Bellavance, RNC) Duration Criteria: Less than Two 120 Second Contractions (Melania Bellavance, RNC) Pattern: Normal: <= 5 Contractions in 10 Minutes (Melania Bellavance, RNC) Resting Tone (Palpate): Relaxed (Melania Bellavance, RNC) Monitor Mode: External US (Melania Bellavance, RNC) Monitor Interventions for FHR: Ultrasound Adjusted (Melania Bellavance, RNC) FHR Baseline Rate : 135 (Melania Bellavance, RNC) Variability: Moderate 6-25 bpm (Melania Bellavance, RNC) Accelerations: 15X15 (Melania Bellavance, RNC) Decelerations: None (Melania Bellavance, RNC) Pain Scale: 0 (Melania Bellavance, RNC) Pitocin (milliunit): Pitocin Remains (milliunits) @ (Melania Bellavance, RNC) IV/Blood Work: IV Infusing per Order (Melania Bellavance, RNC) LaborFlag: Labor (QS system process) Datetime: 05/10/2016 11:43 Monitor Mode: External (Melania Bellavance, RNC) Frequency (min): 2-5 (Melania Bellavance, RNC) Quality: Mild (Melania Bellavance, RNC) Duration (sec): 50-60 (Melania Bellavance, RNC) Duration Criteria: Less than Two 120 Second Contractions (Melania Bellavance, RNC) Pattern: Normal: <= 5 Contractions in 10 Minutes (Melania Bellavance, RNC) Resting Tone (Palpate): Relaxed (Melania Bellavance, RNC) Monitor Mode: External US (Melania Bellavance, RNC) Monitor Interventions for FHR: Ultrasound Adjusted (Melania Bellavance, RNC) FHR Baseline Rate : 135 (Melania Bellavance, RNC) Variability: Moderate 6-25 bpm (Melania Bellavance, RNC) Accelerations: 15X15 (Melania Bellavance, RNC) Decelerations: None (Melania Bellavance, RNC) Pain Scale: 0 (Melania Bellavance, RNC) Pitocin (milliunit): Pitocin Remains (milliunits) @ (Melania Bellavance, RNC) IV/Blood Work: IV Infusing per Order (Melania Bellavance, RNC) LaborFlag: Labor (QS system process) Datetime: 05/10/2016 11:30 Monitor Mode: External (Melania Bellavance, RNC) Monitor Interventions for UA: [place] Adjusted (Melania Bellavance, RNC) Frequency (min): 0 (Melania Bellavance, RNC) Resting Tone (Palpate): Relaxed (Melania Bellavance, RNC) Monitor Mode: External US (Melania Bellavance, RNC) Monitor Interventions for FHR: Ultrasound Adjusted (Melania Bellavance, RNC) FHR Baseline Rate : 135 (Melania Bellavance, RNC) Variability: Moderate 6-25 bpm (Melania Bellavance, RNC) Accelerations: 15X15 (Melania Bellavance, RNC) Decelerations: None (Melania Bellavance, RNC) Pain Scale: 0 (Melania Bellavance, RNC) Pitocin (milliunit): Pitocin Remains (milliunits) @ (Melania Bellavance, RNC) IV/Blood Work: IV Infusing per Order (Melania Bellavance, RNC) LaborFlag: Labor (QS system process) Datetime: 05/10/2016 11:15 Monitor Mode: External (Melania Bellavance, RNC) Monitor Interventions for UA: [place] Adjusted (Melania Bellavance, RNC) Frequency (min): 0 (Melania Bellavance, RNC) Resting Tone (Palpate): Relaxed (Melania Bellavance, RNC) Monitor Mode: External US (Melania Bellavance, RNC) Monitor Interventions for FHR: Ultrasound Adjusted (Melania Bellavance, RNC) FHR Baseline Rate : 135 (Melania Bellavance, RNC) Variability: Moderate 6-25 bpm (Melania Bellavance, RNC) Accelerations: 15X15 (Melania Bellavance, RNC) Decelerations: None (Melania Bellavance, RNC) Pain Scale: 0 (Melania Bellavance, RNC) Pitocin (milliunit): Pitocin Remains (milliunits) @ (Annotations: 20) (Melania Bellavance, RNC) IV/Blood Work: IV Infusing per Order (Melania Bellavance, RNC) LaborFlag: Labor (QS system process) Datetime: 05/10/2016 11:04 NBP Sys/Isamar/Mean (mmHg): 142 (QS system process) : 85 (QS system process) : 108 (QS system process) Pulse: 95 (QS system process) Respirations: 16 (Melania Bellavance, RNC) Monitor Mode: External (Melania Bellavance, RNC) Monitor Interventions for UA: [place] Adjusted (Melania Bellavance, RNC) Frequency (min): 0 (Melania Bellavance, RNC) Resting Tone (Palpate): Relaxed (Melania Bellavance, RNC) Monitor Mode: External US (Melania Bellavance, RNC) Monitor Interventions for FHR: Ultrasound Adjusted (Melania Bellavance, RNC) FHR Baseline Rate : 135 (Melania Bellavance, RNC) Variability: Moderate 6-25 bpm (Melania Bellavance, RNC) Accelerations: 15X15 (Melania Bellavance, RNC) Decelerations: None (Melania Bellavance, RNC) Pain Scale: 0 (Melania Bellavance, RNC) Pitocin (milliunit): Pitocin Increased to (milliunits) @ (Annotations: 20) (Melania Bellavance, RNC) IV/Blood Work: IV Infusing per Order (Melania Bellavance, RNC) LaborFlag: Labor (QS system process) Datetime: 05/10/2016 10:46 Monitor Mode: External (Melania Bellavance, RNC) Monitor Interventions for UA: [place] Adjusted (Melania Bellavance, RNC) Frequency (min): 0 (Melania Bellavance, RNC) Resting Tone (Palpate): Relaxed (Melania Bellavance, RNC) Monitor Mode: External US (Melania Bellavance, RNC) Monitor Interventions for FHR: Ultrasound Adjusted (Melania Bellavance, RNC) FHR Baseline Rate : 135 (Melania Bellavance, RNC) Variability: Moderate 6-25 bpm (Melania Bellavance, RNC) Accelerations: 15X15 (Melania Bellavance, RNC) Decelerations: None (Melania Bellavance, RNC) Pain Scale: 0 (Melania Bellavance, RNC) Pitocin (milliunit): Pitocin Increased to (milliunits) @ (Annotations: 18) (Melania Bellavance, RNC) IV/Blood Work: IV Infusing per Order (Melania Bellavance, RNC) LaborFlag: Labor (QS system process) Datetime: 05/10/2016 10:31 NBP Sys/Isamar/Mean (mmHg): 130 (QS system process) : 76 (QS system process) : 95 (QS system process) Pulse: 100 (QS system process) Respirations: 18 (Melania Bellavance, RNC) Monitor Mode: External (Melania Bellavance, RNC) Monitor Interventions for UA: [place] Adjusted (Melania Bellavance, RNC) Frequency (min): 0 (Melania Bellavance, RNC) Resting Tone (Palpate): Relaxed (Melania Bellavance, RNC) Monitor Mode: External US (Melania Bellavance, RNC) Monitor Interventions for FHR: Ultrasound Adjusted (Melania Bellavance, RNC) FHR Baseline Rate : 135 (Melania Bellavance, RNC) Variability: Moderate 6-25 bpm (Melania Bellavance, RNC) Accelerations: 15X15 (Melania Bellavance, RNC) Decelerations: None (Melania Bellavance, RNC) Pain Scale: 0 (Melania Bellavance, RNC) Pitocin (milliunit): Pitocin Increased to (milliunits) @ (Annotations: 16) (Melania Bellavance, RNC) IV/Blood Work: IV Infusing per Order (Melaina Bellavance, RNC) LaborFlag: Labor (QS system process) Datetime: 05/10/2016 10:15 Monitor Mode: External (Melania Bellavance, RNC) Monitor Interventions for UA: [place] Adjusted (Melania Bellavance, RNC) Frequency (min): 0 (Melania Bellavance, RNC) Resting Tone (Palpate): Relaxed (Melania Bellavance, RNC) Monitor Mode: External US (Melania Bellavance, RNC) Monitor Interventions for FHR: Ultrasound Adjusted (Melania Bellavance, RNC) FHR Baseline Rate : 135 (Melania Bellavance, RNC) Variability: Moderate 6-25 bpm (Melania Bellavance, RNC) Accelerations: 15X15 (Melania Bellavance, RNC) Decelerations: None (Melania Bellavance, RNC) Pain Scale: 0 (Melania Bellavance, RNC) Pitocin (milliunit): Pitocin Increased to (milliunits) @ (Annotations: 14) (Melania Bellavance, RNC) IV/Blood Work: IV Infusing per Order (Melania Bellavance, RNC) LaborFlag: Labor (QS system process) Datetime: 05/10/2016 10:00 Monitor Mode: External (Mleania Bellavance, RNC) Monitor Interventions for UA: [place] Adjusted (Melania Bellavance, RNC) Frequency (min): 0 (Melania Bellavance, RNC) Resting Tone (Palpate): Relaxed (Melania Bellavance, RNC) Monitor Mode: External US (Melania Bellavance, RNC) Monitor Interventions for FHR: Ultrasound Adjusted (Melania Bellavance, RNC) FHR Baseline Rate : 135 (Melania Bellavance, RNC) Variability: Moderate 6-25 bpm (Melania Bellavance, RNC) Accelerations: 15X15 (Melania Bellavance, RNC) Decelerations: None (Melania Bellavance, RNC) Pain Scale: 0 (Melania Bellavance, RNC) Pitocin (milliunit): Pitocin Increased to (milliunits) @ (Annotations: 12) (Melania Bellavance, RNC) IV/Blood Work: IV Infusing per Order (Melania Bellavance, RNC) LaborFlag: Labor (QS system process) Datetime: 05/10/2016 09:46 Monitor Mode: External (Melania Bellavance, RNC) Monitor Interventions for UA: [place] Adjusted (Melania Bellavance, RNC) Frequency (min): 0 (Melania Bellavance, RNC) Resting Tone (Palpate): Relaxed (Melania Bellavance, RNC) Monitor Mode: External US (Melania Bellavance, RNC) Monitor Interventions for FHR: Ultrasound Adjusted (Melania Bellavance, RNC) FHR Baseline Rate : 135 (Melania Bellavance, RNC) Variability: Moderate 6-25 bpm (Melania Bellavance, RNC) Accelerations: 15X15 (Melania Bellavance, RNC) Decelerations: None (Melania Bellavance, RNC) Pain Scale: 0 (Melania Bellavance, RNC) Pitocin (milliunit): Pitocin Increased to (milliunits) @ (Annotations: 10) (Melania Bellavance, RNC) IV/Blood Work: IV Infusing per Order (Melania Bellavance, RNC) LaborFlag: Labor (QS system process) Datetime: 05/10/2016 09:30 Monitor Mode: External (Melania Bellavance, RNC) Monitor Interventions for UA: [place] Adjusted (Melania Bellavance, RNC) Frequency (min): 0 (Melania Bellavance, RNC) Resting Tone (Palpate): Relaxed (Melania Bellavance, RNC) Monitor Mode: External US (Melania Bellavance, RNC) Monitor Interventions for FHR: Ultrasound Adjusted (Melania Bellavance, RNC) FHR Baseline Rate : 135 (Melania Bellavance, RNC) Variability: Moderate 6-25 bpm (Melania Bellavance, RNC) Accelerations: 15X15 (Melania Bellavance, RNC) Decelerations: None (Melania Bellavance, RNC) Pain Scale: 0 (Melania Bellavance, RNC) Pitocin (milliunit): Pitocin Increased to (milliunits) @ (Annotations: 8) (Melania Bellavance, RNC) IV/Blood Work: IV Infusing per Order (Melania Bellavance, RNC) Patient Position/Activity: High Fowlers (Melania Bellavance, RNC) Comfort Measures: Rocking Chair (Melania Bellavance, RNC) LaborFlag: Labor (QS system process) Datetime: 05/10/2016 09:15 Monitor Mode: External (Melania Bellavance, RNC) Monitor Interventions for UA: [place] Adjusted (Melania Bellavance, RNC) Frequency (min): 0 (Melania Bellavance, RNC) Resting Tone (Palpate): Relaxed (Melania Bellavance, RNC) Monitor Mode: External US (Melania Bellavance, RNC) Monitor Interventions for FHR: Ultrasound Adjusted (Melania Bellavance, RNC) FHR Baseline Rate : 135 (Melania Bellavance, RNC) Variability: Moderate 6-25 bpm (Melania Bellavance, RNC) Accelerations: 15X15 (Melania Bellavance, RNC) Decelerations: None (Melania Bellavance, RNC) Pain Scale: 0 (Melania Bellavance, RNC) Pitocin (milliunit): Pitocin Increased to (milliunits) @ (Annotations: 6) (Melania Bellavance, RNC) IV/Blood Work: IV Infusing per Order (Melania Bellavance, RNC) LaborFlag: Labor (QS system process) Datetime: 05/10/2016 09:00 Monitor Mode: External (Melania Bellavance, RNC) Monitor Interventions for UA: [place] Adjusted (Melania Bellavance, RNC) Frequency (min): 0 (Melania Bellavance, RNC) Resting Tone (Palpate): Relaxed (Melania Bellavance, RNC) Monitor Mode: External US (Melania Bellavance, RNC) Monitor Interventions for FHR: Ultrasound Adjusted (Melania Bellavance, RNC) FHR Baseline Rate : 135 (Melania Bellavance, RNC) Variability: Moderate 6-25 bpm (Melania Bellavance, RNC) Accelerations: 15X15 (Melania Bellavance, RNC) Decelerations: None (Melania Bellavance, RNC) Pain Scale: 0 (Melania Bellavance, RNC) Pitocin (milliunit): Pitocin Increased to (milliunits) @ (Annotations: 4) (Melania Bellavance, RNC) IV/Blood Work: IV Infusing per Order (Melania Bellavance, RNC) LaborFlag: Labor (QS system process) Datetime: 05/10/2016 08:44 NBP Sys/Isamar/Mean (mmHg): 128 (QS system process) : 78 (QS system process) : 97 (QS system process) Pulse: 99 (QS system process) Respirations: 16 (Melania Bellavance, RNC) Monitor Mode: External (Melania Bellavance, RNC) Monitor Interventions for UA: [place] Adjusted (Melania Bellavance, RNC) Frequency (min): 0 (Melania Bellavance, RNC) Resting Tone (Palpate): Relaxed (Melania Bellavance, RNC) Monitor Mode: External US (Melania Bellavance, RNC) Monitor Interventions for FHR: Ultrasound Adjusted (Melania Bellavance, RNC) FHR Baseline Rate : 135 (Melania Bellavance, RNC) Variability: Moderate 6-25 bpm (Melania Bellavance, RNC) Accelerations: 15X15 (Melania Bellavance, RNC) Decelerations: None (Melania Bellavance, RNC) Pain Scale: 0 (Melania Bellavance, RNC) Pitocin (milliunit): Pitocin Started (milliunits) @ (Annotations: 2) (Melania Bellavance, RNC) IV/Blood Work: IV Infusing per Order (Melania Bellavance, RNC) LaborFlag: Labor (QS system process) Datetime: 05/10/2016 08:28 Dilatation (cm): 1.0 (Melania Bellavance, RNC) Effacement (%): 75 (Melania Bellavance, RNC) Station: -2 (Melania Bellavance, RNC) Exam by: A Emmel CNM (Melania Bellavance, RNC) Datetime: 05/10/2016 07:28 LaborFlag: Labor (QS system process) Datetime: 05/10/2016 06:58 LaborFlag: Labor (QS system process) Datetime: 05/10/2016 06:54 LaborFlag: Labor (QS system process) Datetime: 05/10/2016 06:31 LaborFlag: Labor (QS system process) Datetime: 05/10/2016 06:28 LaborFlag: Labor (QS system process) Datetime: 05/10/2016 06:01 LaborFlag: Labor (QS system process) Datetime: 05/10/2016 05:58 LaborFlag: Labor (QS system process) Datetime: 05/10/2016 05:30 LaborFlag: Labor (QS system process) Datetime: 05/10/2016 05:28 LaborFlag: Labor (QS system process) Datetime: 05/10/2016 05:00 LaborFlag: Labor (QS system process) Datetime: 05/10/2016 04:58 LaborFlag: Labor (QS system process) Datetime: 05/10/2016 04:30 LaborFlag: Labor (QS system process) Datetime: 05/10/2016 04:00 LaborFlag: Labor (QS system process) Datetime: 05/10/2016 03:30 LaborFlag: Labor (QS system process) Datetime: 05/10/2016 03:29 LaborFlag: Labor (QS system process) Datetime: 05/10/2016 03:00 LaborFlag: Labor (QS system process) Datetime: 05/10/2016 02:58 LaborFlag: Labor (QS system process) Datetime: 05/10/2016 02:32 LaborFlag: Labor (QS system process) Datetime: 05/10/2016 02:27 LaborFlag: Labor (QS system process) Datetime: 05/10/2016 01:59 LaborFlag: Labor (QS system process) Datetime: 05/10/2016 01:58 LaborFlag: Labor (QS system process) Datetime: 05/10/2016 01:30 LaborFlag: Labor (QS system process) Datetime: 05/10/2016 01:28 LaborFlag: Labor (QS system process) Datetime: 05/10/2016 01:00 LaborFlag: Labor (QS system process) Datetime: 05/10/2016 00:58 LaborFlag: Labor (QS system process) Datetime: 05/10/2016 00:30 LaborFlag: Labor (QS system process) Datetime: 05/10/2016 00:28 LaborFlag: Labor (QS system process) Datetime: 05/10/2016 00:00 LaborFlag: Labor (QS system process) Datetime: 05/09/2016 23:58 LaborFlag: Labor (QS system process) Datetime: 05/09/2016 23:30 LaborFlag: Labor (QS system process) Datetime: 05/09/2016 23:28 LaborFlag: Labor (QS system process) Datetime: 05/09/2016 23:00 LaborFlag: Labor (QS system process) Datetime: 05/09/2016 22:58 LaborFlag: Labor (QS system process) Datetime: 05/09/2016 22:30 LaborFlag: Labor (QS system process) Datetime: 05/09/2016 22:28 LaborFlag: Labor (QS system process) Datetime: 05/09/2016 21:59 LaborFlag: Labor (QS system process) Datetime: 05/09/2016 21:58 LaborFlag: Labor (QS system process) Datetime: 05/09/2016 21:29 LaborFlag: Labor (QS system process) Datetime: 05/09/2016 21:28 LaborFlag: Labor (QS system process) Datetime: 05/09/2016 20:59 LaborFlag: Labor (QS system process) Datetime: 05/09/2016 20:58 LaborFlag: Labor (QS system process) Datetime: 05/09/2016 20:29 LaborFlag: Labor (QS system process) Datetime: 05/09/2016 20:28 LaborFlag: Labor (QS system process) Datetime: 05/09/2016 19:59 LaborFlag: Labor (QS system process) Datetime: 05/09/2016 19:58 LaborFlag: Labor (QS system process) Datetime: 05/09/2016 19:36 LaborFlag: Labor (QS system process) Datetime: 05/09/2016 19:28 LaborFlag: Labor (QS system process) Datetime: 05/08/2016 17:15 LaborFlag: Labor (QS system process) Datetime: 05/08/2016 17:00 LaborFlag: Labor (QS system process) Datetime: 05/08/2016 16:45 LaborFlag: Labor (QS system process) Datetime: 05/02/2016 15:29 LaborFlag: Labor (QS system process) Datetime: 03/20/2016 18:33 LaborFlag: Labor (QS system process) Datetime: 03/20/2016 18:04 LaborFlag: Labor (QS system process) Datetime: 03/20/2016 17:20 LaborFlag: Labor (QS system process) Datetime: 03/20/2016 17:06 LaborFlag: Labor (QS system process) Datetime: 03/20/2016 16:50 LaborFlag: Labor (QS system process) Datetime: 03/20/2016 15:46 LaborFlag: Labor (QS system process) Datetime: 03/20/2016 15:24 LaborFlag: Labor (QS system process) Datetime: 03/20/2016 15:09 LaborFlag: Labor (QS system process) Datetime: 03/20/2016 14:56 LaborFlag: Labor (QS system process) Datetime: 03/20/2016 14:54 LaborFlag: Labor (QS system process) Datetime: 03/20/2016 14:41 Membranes Ruptured Date/Time: 05/10/2016 18:09 (Melania Caldwell [facility]) Amniotic Fluid Color: Clear (Melania Caldwell [facility]) Amniotic Fluid Odor: Normal (Melania Caldwell [facility])
[2016-05-11] MEDS ORDERED: DEXTROSE 5%-LACTATED RINGERS 1,000 ML IV ONE (04:08)
[2016-05-11] MEDS ORDERED: FENTANYL/BUPIVACAINE/NS/PF 200 MCG/100 ML RTUINJ EPI ONE (05:13)
[2016-05-11] MEDS ORDERED: LIDOCAINE 2% INJ-PF (20 MG/ML) 10 ML AMPUL ONE (06:01)
[2016-05-11] MEDS ORDERED: OXYTOCIN/NORMAL SALINE 0 UNIT/0 ML RTUINJ ONE (06:05)
[2016-05-11] MEDS ORDERED: LIDOCAINE 1% INJ-PF (10 MG/ML) 30 ML SDV ONE (06:05)
[2016-05-11] MEDS ORDERED: MISOPROSTOL 0.2 MG TABLET ONE (06:05)
[2016-05-11] MEDS ORDERED: DIBUCAINE 1% OINTMENT 28 GM TP PRN (07:09)
[2016-05-11] MEDS ORDERED: OXYTOCIN/NORMAL SALINE 1,000 ML IV PRN (07:09)
[2016-05-11] MEDS ORDERED: ACETAMINOPHEN WITH CODEINE #3 TABLET PO PRN ×2 (07:09)
[2016-05-11] MEDS ORDERED: ZOLPIDEM TARTRATE 5 MG TABLET PO PRN (07:09)
[2016-05-11] MEDS ORDERED: DIPH/PERTUSS(ACELL)/TETANUS VAC/PF 0.5 ML SYR (>=10YO) IM PRN (07:09)
[2016-05-11] MEDS ORDERED: BENZOCAINE/MENTHOL AEROSOL SPRAY 56 ML TOP PRN (07:09)
[2016-05-11] MEDS ORDERED: MEASLES,MUMPS&RUBELLA VACC/PF 0.5 ML VIAL SUBCUT PRN (07:09)
--- NOTE | 2016-05-11 08:00 | L&D Flow Sheet ---
LD Flowsheet Datetime Report Generated by CPN: 05/11/2016 08:00 Datetime: 05/11/2016 07:57 NBP Sys/Isamar/Mean (mmHg): 131 (QS system process) : 66 (QS system process) : 93 (QS system process) Pulse: 109 (QS system process) LaborFlag: Labor (QS system process) Datetime: 05/11/2016 07:42 NBP Sys/Isamar/Mean (mmHg): 137 (QS system process) : 64 (QS system process) : 90 (QS system process) Pulse: 110 (QS system process) LaborFlag: Labor (QS system process) Datetime: 05/11/2016 07:27 NBP Sys/Isamar/Mean (mmHg): 129 (QS system process) : 60 (QS system process) : 87 (QS system process) Pulse: 120 (QS system process) LaborFlag: Labor (QS system process) Datetime: 05/11/2016 07:12 NBP Sys/Isamar/Mean (mmHg): 142 (QS system process) : 67 (QS system process) : 97 (QS system process) Pulse: 109 (QS system process) LaborFlag: Labor (QS system process) Datetime: 05/11/2016 07:07 Communication: Report Given to @ D Sanketmimally RNC (Marissa Jean-Paul, RN) Communication Comments: Care relinquished (Marissa Jean-Paul, RN) Datetime: 05/11/2016 06:58 NBP Sys/Isamar/Mean (mmHg): 133 (QS system process) : 86 (QS system process) : 105 (QS system process) Pulse: 117 (QS system process) LaborFlag: Labor (QS system process) Datetime: 05/11/2016 06:57 Monitor Mode: External (Marissa Jean-Paul, RN) Frequency (min): 1-3 (Marissa Jean-Paul, RN) Quality: Moderate (Marissa Jean-Paul, RN) Duration (sec): 60-70 (Marissa Jean-Paul, RN) Resting Tone (Palpate): Relaxed (Marissa Jean-Paul, RN) Monitor Mode: External US (Marissa Jean-Paul, RN) FHR Baseline Rate : 145 (Marissa Jean-Paul, RN) Variability: Moderate 6-25 bpm (Marissa Jean-Paul, RN) Accelerations: 10X10 (Marissa Jean-Paul, RN) Decelerations: Variable (Marissa Jean-Paul, RN) Pitocin (milliunit): Pitocin Remains (milliunits) @ 4 (Marissa Jean-Paul, RN) Pushing Progress: with Pushing (Marissa Jean-Paul, RN) Datetime: 05/11/2016 06:53 Pushing: Coached on Pushing; Urge to Push (Marissa Jean-Paul, RN) Pushing Position: Pushing with Contractions; Pushing Lithotomy (Marissa Jean-Paul, RN) Pushing Progress: Descent with Pushing; Pushing Effectively with Contractions (Marissa Jean-Paul, RN) Datetime: 05/11/2016 06:51 Communication Comments: Dr Cornell at bedside (Marissa Jean-Paul, RN) Datetime: 05/11/2016 06:49 Dilatation (cm): 10.0 (Marissa Jean-Paul, RN) Effacement (%): 100 (Marissa Jean-Paul, RN) Station: 0 (Marissa Jean-Paul, RN) Exam by: Maine Jeong RN (Marissa Jean-Paul, RN) Vaginal Exam Comments: Pt with strong urge to push (Marissa Jean-Paul, RN) Datetime: 05/11/2016 06:45 Monitor Mode: External (Marissa Jean-Paul, RN) Frequency (min): 2-3 (Marissa Jean-Paul, RN) Quality: Moderate (Marissa Jean-Paul, RN) Duration (sec): 60-70 (Marissa Jean-Paul, RN) Resting Tone (Palpate): Relaxed (Marissa Jean-Paul, RN) Monitor Mode: External US (Marissa Jean-Paul, RN) FHR Baseline Rate : 145 (Marissa Jean-Paul, RN) Variability: Moderate 6-25 bpm (Marissa Jean-Paul, RN) Accelerations: 10X10 (Marissa Jean-Paul, RN) Decelerations: Variable (Marissa Jeong RN) Pitocin (milliunit): Pitocin Remains (milliunits) @ 4 (Marissa Jeong RN) Datetime: 05/11/2016 06:42 NBP Sys/Isamar/Mean (mmHg): 132 (QS system process) : 95 (QS system process) : 106 (QS system process) Pulse: 123 (QS system process) LaborFlag: Labor (QS system process) Datetime: 05/11/2016 06:38 Dilatation (cm): 9.0 (Marissa Jeong RN) Effacement (%): 80 (Marissa Jeong RN) Station: 0 (Marissa Jeong RN) Exam by: Maine Jeong RN (Marissa Jeong RN) Vaginal Exam Comments: Pt with strong urge to push (Marissa Jeong RN) Patient Position/Activity: Tailors (Marissa Jeong RN) Datetime: 05/11/2016 06:30 Monitor Mode: External (Marissa Jean-Paul, RN) Frequency (min): 2-5 (Marissa Jean-Paul, RN) Quality: Mild/Moderate (Marissa Jean-Paul, RN) Duration (sec): 40-90 (Marissa Jean-Paul, RN) Resting Tone (Palpate): Relaxed (Marissa Jean-Paul, RN) Monitor Mode: External US (Marissa Jean-Paul, RN) FHR Baseline Rate : 145 (Marissa Jean-Paul, RN) Variability: Moderate 6-25 bpm (Marissa Jean-Paul, RN) Accelerations: 10X10 (Marissa Jean-Paul, RN) Decelerations: Variable (Marissa Jean-Paul, RN) Pitocin (milliunit): Pitocin Remains (milliunits) @ 4 (Marissa Jean-Paul, RN) Datetime: 05/11/2016 06:24 Temperature (F): 98.1 (Marissa Jean-Paul, RN) Temperature (C): 36.7 (QS system process) LaborFlag: Labor (QS system process) Datetime: 05/11/2016 06:17 Pain Assessment Comments: Pt reports decreasing pain, but increasing pressure (Marissa Jean-Paul, RN) Anesthesia Level Check: T9 (Marissa Jean-Paul, RN) LaborFlag: Labor (QS system process) Datetime: 05/11/2016 06:16 Epidural Procedure Other: Pump Started (Marissa Jean-Paul, RN) Datetime: 05/11/2016 06:15 Monitor Mode: External (Marissa Jean-Paul, RN) Frequency (min): 2-3 (Marissa Jeong RN) Quality: Mild/Moderate (Marissa Jeong RN) Duration (sec): 30-100 (Marissa Jeong RN) Resting Tone (Palpate): Relaxed (Marissa Jeong RN) Monitor Mode: External US (Marissa Jeong RN) FHR Baseline Rate : 145 (Marissa Jeong RN) Variability: Moderate 6-25 bpm (Marissa Jeong RN) Accelerations: 10X10 (Marissa Jeong RN) Decelerations: Variable (Marissa Jeong RN) Pitocin (milliunit): Pitocin Remains (milliunits) @ 4 (Marissa Jeong RN) Anesthesia Comments: epidural bolused with 8 mL 2% lidocaine by Dr Mcgowan (Marissa Jeong RN) Datetime: 05/11/2016 06:01 Dilatation (cm): 7.5 (Marissa Jeong RN) Effacement (%): 80 (Marissa Jeong RN) Station: -1 (Marissa Jeong RN) Exam by: Maine Jeong RN (Marissa Jeong, [employer]) Vaginal Exam Comments: Pt reporting urge to push (Marissa Jeong RN) Datetime: 05/11/2016 06:00 Monitor Mode: External; Palpation (Marissa Jean-Paul, RN) Frequency (min): 2-5 (Marissa Jean-Paul, RN) Quality: Moderate (Marissa Jean-Paul, RN) Duration (sec): 50-60 (Marissa Jean-Paul, RN) Resting Tone (Palpate): Relaxed (Marissa Jean-Paul, RN) Monitor Mode: External US (Marissa Jean-Paul, RN) FHR Baseline Rate : 140 (Marissa Jean-Paul, RN) Variability: Moderate 6-25 bpm (Marissa Jean-Paul, RN) Accelerations: None (Marissa Jean-Paul, RN) Decelerations: Variable (Marissa Jean-Paul, RN) Pitocin (milliunit): Pitocin Remains (milliunits) @ 4 (Marissa Jean-Paul, RN) Datetime: 05/11/2016 05:58 NBP Sys/Isamar/Mean (mmHg): 136 (QS system process) : 94 (QS system process) : 111 (QS system process) Pulse: 146 (QS system process) LaborFlag: Labor (QS system process) Datetime: 05/11/2016 05:45 Monitor Mode: External (Marissa Jean-Paul, RN) Frequency (min): 4-5 (Marissa Jean-Paul, RN) Quality: Mild/Moderate (Marissa Jean-Paul, RN) Duration (sec): 70-80 (Marissa Jean-Paul, RN) Resting Tone (Palpate): Relaxed (Marissa Jean-Paul, RN) Monitor Mode: External US (Marissa Jean-Paul, RN) FHR Baseline Rate : 145 (Marissa Jean-Paul, RN) Variability: Moderate 6-25 bpm (Marissa Jean-Paul, RN) Accelerations: 10X10 (Marissa Jean-Paul, RN) Decelerations: Variable (Marissa Jean-Paul, RN) Pitocin (milliunit): Pitocin Remains (milliunits) @ 4 (Marissa Jean-Paul, RN) Datetime: 05/11/2016 05:44 Communication: Call/Page Placed to Provider (Marissa Jean-Paul, RN) Communication Comments: Call placed to Dr Mcgowan to replace epidural bag; ETA 20 minutes (Marissa Jean-Paul, RN) Datetime: 05/11/2016 05:42 NBP Sys/Isamar/Mean (mmHg): 125 (QS system process) : 65 (QS system process) : 89 (QS system process) Pulse: 98 (QS system process) LaborFlag: Labor (QS system process) Datetime: 05/11/2016 05:30 Monitor Mode: External (Marissa Jean-Paul, RN) Frequency (min): 2-4 (Marissa Jean-Paul, RN) Quality: Mild/Moderate (Marissa Jean-Paul, RN) Duration (sec): 40-60 (Marissa Jean-Paul, RN) Resting Tone (Palpate): Relaxed (Marissa Jean-Paul, RN) Monitor Mode: External US (Marissa Jean-Paul, RN) FHR Baseline Rate : 145 (Marissa Jean-Paul, RN) Variability: Moderate 6-25 bpm (Marissa Jean-Paul, RN) Accelerations: 15X15 (Marissa Jean-Paul, RN) Decelerations: Variable (Marissa Jean-Paul, RN) Pitocin (milliunit): Pitocin Remains (milliunits) @ 4 (Marissa Jean-Paul, RN) Datetime: 05/11/2016 05:27 NBP Sys/Isamar/Mean (mmHg): 122 (QS system process) : 63 (QS system process) : 86 (QS system process) Pulse: 94 (QS system process) LaborFlag: Labor (QS system process) Datetime: 05/11/2016 05:15 Monitor Mode: External (Marissa Jean-Paul, RN) Frequency (min): 4-5 (Marissa Jean-Paul, RN) Quality: Mild/Moderate (Marissa Jean-Paul, RN) Duration (sec): 40-100 (Marissa Jean-Paul, RN) Resting Tone (Palpate): Relaxed (Marissa Jean-Paul, RN) Monitor Mode: External US (Marissa Jean-Paul, RN) FHR Baseline Rate : 145 (Marissa Jean-Paul, RN) FHR Baseline Rate : 140 (Marissa Jean-Paul, RN) Variability: Moderate 6-25 bpm (Marissa Jean-Paul, RN) Accelerations: 15X15 (Marissa Jean-Paul, RN) Decelerations: Variable (Marissa Jean-Paul, RN) Pitocin (milliunit): Pitocin Remains (milliunits) @ 4 (Marissa Jeong RN) Pitocin (milliunit): Pitocin Remains (milliunits) @ (Annotations: 4) (Marissa Jeong RN) Datetime: 05/11/2016 05:12 NBP Sys/Isamar/Mean (mmHg): 131 (QS system process) : 63 (QS system process) : 91 (QS system process) Pulse: 96 (QS system process) LaborFlag: Labor (QS system process) Datetime: 05/11/2016 05:10 Pain Assessment Comments: Pt resting comfortably (Marissa Jeong RN) Pitocin (milliunit): Pitocin Increased to (milliunits) @ 4 (Marissa Jeong RN) LaborFlag: Labor (QS system process) Datetime: 05/11/2016 05:00 Monitor Mode: External (Marissa Jean-Paul, RN) Frequency (min): 5-6 (Marissa Jean-Paul, RN) Quality: Mild/Moderate (Marissa Jean-Paul, RN) Duration (sec): 60-70 (Marissa Jean-Paul, RN) Resting Tone (Palpate): Relaxed (Marissa Jean-Paul, RN) Monitor Mode: External US (Marissa Jean-Paul, RN) FHR Baseline Rate : 145 (Marissa Jean-Paul, RN) Variability: Moderate 6-25 bpm (Marissa Jean-Paul, RN) Accelerations: 10X10 (Marissa Jean-Paul, RN) Decelerations: Late (Marissa Jean-Paul, RN) Pitocin (milliunit): Pitocin Remains (milliunits) @ (Annotations: 2) (Marissa Jean-Paul, RN) Datetime: 05/11/2016 04:57 NBP Sys/Isamar/Mean (mmHg): 132 (QS system process) : 64 (QS system process) : 92 (QS system process) Pulse: 92 (QS system process) LaborFlag: Labor (QS system process) Datetime: 05/11/2016 04:45 Monitor Mode: External (Marissa Jean-Paul, RN) Frequency (min): 6 (Marissa Jean-Paul, RN) Quality: Mild/Moderate (Marissa Jean-Paul, RN) Duration (sec): 40-50 (Marissa Jean-Paul, RN) Resting Tone (Palpate): Relaxed (Marissa Jean-Paul, RN) Monitor Mode: External US (Marissa Jean-Paul, RN) FHR Baseline Rate : 145 (Marissa Jean-Paul, RN) Variability: Moderate 6-25 bpm (Marissa Jean-Paul, RN) Accelerations: 10X10 (Marissa Jean-Paul, RN) Decelerations: Prolonged (Marissa Jean-Paul, RN) Pitocin (milliunit): Pitocin Remains (milliunits) @ (Annotations: 2) (Marissa Jean-Paul, RN) Datetime: 05/11/2016 04:42 NBP Sys/Isamar/Mean (mmHg): 130 (QS system process) : 62 (QS system process) : 87 (QS system process) Pulse: 97 (QS system process) LaborFlag: Labor (QS system process) Datetime: 05/11/2016 04:40 Actions for Decelerations: Side to Side (Marissa Jeong RN) IV/Blood Work: IV Infusing per Order (Marissa Jeong RN) Patient Care Comments: LR @ 125 mL/hr (Marissa Jean-Paul, RN) Datetime: 05/11/2016 04:30 Monitor Mode: External (Marissa Jean-Paul, RN) Frequency (min): 5-6 (Marissa Jean-Paul, RN) Quality: Mild/Moderate (Marissa Jean-Paul, RN) Duration (sec): 40-60 (Marissa Jean-Paul, RN) Resting Tone (Palpate): Relaxed (Marissa Jean-Paul, RN) Monitor Mode: External US (Marissa Jean-Paul, RN) FHR Baseline Rate : 145 (Marissa Jean-Paul, RN) Variability: Moderate 6-25 bpm (Marissa Jean-Paul, RN) Accelerations: None (Marissa Jean-Paul, RN) Decelerations: None (Marissa Jean-Paul, RN) Pitocin (milliunit): Pitocin Remains (milliunits) @ 2 (Marissa Callejasl, RN) Datetime: 05/11/2016 04:27 NBP Sys/Isamar/Mean (mmHg): 111 (QS system process) : 56 (QS system process) : 76 (QS system process) Pulse: 85 (QS system process) LaborFlag: Labor (QS system process) Datetime: 05/11/2016 04:15 Monitor Mode: External; Palpation (Marissa Jeong, RN) Frequency (min): 5-6 (Marissa Jean-Paul, RN) Quality: Mild/Moderate (Marissa Jean-Paul, RN) Duration (sec): 40-60 (Marissa Jean-Paul, RN) Resting Tone (Palpate): Relaxed (Marissa Jeong, RN) Monitor Mode: External US (Marissa Jeong, RN) FHR Baseline Rate : 140 (Marissa Jean-Paul, RN) Variability: Moderate 6-25 bpm (Marissa Jean-Paul, RN) Accelerations: 15X15 (Marissa Jean-Paul, RN) Decelerations: None (Marissa Jean-Paul, RN) Pitocin (milliunit): Pitocin Remains (milliunits) @ 2 (Marissa Jean-Paul, RN) Datetime: 05/11/2016 04:13 Pitocin (milliunit): Pitocin Started (milliunits) @ 2 (Marissa Jean-Paul, RN) Datetime: 05/11/2016 04:12 NBP Sys/Isamar/Mean (mmHg): 125 (QS system process) : 58 (QS system process) : 84 (QS system process) Pulse: 100 (QS system process) LaborFlag: Labor (QS system process) Datetime: 05/11/2016 04:08 Communication: Call/Page Placed to Provider; Report Given to @ Dr Cornell (Marissa Jeong RN) Communication Comments: Report to Dr Cornell re: FHR, orders to begin pitocin administration per protocol ; pt may have nubain 10 mg IV for pain control until epidural can be bolused (Marissa Jeong, RN) Datetime: 05/11/2016 04:06 Communication: Call/Page Placed to Provider; Report Given to @ Dr Mcgowan (Marissa Jeong RN) Communication Comments: Report to Dr Mcgowan re: epidural function, Dr Mcgowan can be on unit in _1 hour to troubleshoot; recommends IV sedation until then (Marissa Jeong RN) Datetime: 05/11/2016 04:05 Pain Assessment Comments: Pt reports no relief of left sided pain (Marissa Jean-Paul, RN) LaborFlag: Labor (QS system process) Datetime: 05/11/2016 04:00 Monitor Mode: External (Marissa Jean-Paul, RN) Frequency (min): 10 (Marissa Jean-Paul, RN) Quality: Mild/Moderate (Marissa Jean-Paul, RN) Duration (sec): 50-60 (Marissa Jean-Paul, RN) Resting Tone (Palpate): Relaxed (Marissa Jean-Paul, RN) Monitor Mode: External US (Marissa Jean-Paul, RN) FHR Baseline Rate : 145 (Marissa Jean-Paul, RN) Variability: Moderate 6-25 bpm (Marissa Jean-Paul, RN) Accelerations: None (Marissa Jean-Paul, RN) Decelerations: Variable (Marissa Jean-Paul, RN) Datetime: 05/11/2016 03:58 NBP Sys/Isamar/Mean (mmHg): 122 (QS system process) : 56 (QS system process) : 77 (QS system process) Pulse: 89 (QS system process) LaborFlag: Labor (QS system process) Datetime: 05/11/2016 03:48 Pain Assessment Comments: Pt reporting feeling painful ctx on left side (Marissa Jean-Paul, RN) Patient Position/Activity: Left Lateral (Marissa Jean-Paul, RN) LaborFlag: Labor (QS system process) Datetime: 05/11/2016 03:45 Monitor Mode: External (Marissa Jean-Paul, RN) Frequency (min): 6 (Marissa Jean-Paul, RN) Quality: Mild/Moderate (Marissa Jean-Paul, RN) Duration (sec): 70-80 (Marissa Jean-Paul, RN) Resting Tone (Palpate): Relaxed (Marissa Jean-Paul, RN) Monitor Mode: External US (Marissa Jean-Paul, RN) FHR Baseline Rate : 150 (Marissa Jean-Paul, RN) Variability: Moderate 6-25 bpm (Marissa Jean-Paul, RN) Accelerations: 15X15 (Marissa Jean-Paul, RN) Decelerations: None (Marissa Jean-Paul, RN) Datetime: 05/11/2016 03:42 NBP Sys/Isamar/Mean (mmHg): 134 (QS system process) : 76 (QS system process) : 98 (QS system process) Pulse: 94 (QS system process) LaborFlag: Labor (QS system process) Datetime: 05/11/2016 03:30 Monitor Mode: External (Marissa Jean-Paul, RN) Frequency (min): 2-7 (Marissa Jean-Paul, RN) Quality: Mild/Moderate (Marissa Jean-Paul, RN) Duration (sec): 60-70 (Marissa Jean-Paul, RN) Resting Tone (Palpate): Relaxed (Marissa Jean-Paul, RN) Monitor Mode: External US (Marissa Jean-Paul, RN) FHR Baseline Rate : 140 (Marissa Jean-Paul, RN) Variability: Moderate 6-25 bpm (Marissa Jean-Paul, RN) Accelerations: 15X15 (Marissa Jean-Paul, RN) Decelerations: None (Marissa Jean-Paul, RN) Datetime: 05/11/2016 03:27 NBP Sys/Isamar/Mean (mmHg): 132 (QS system process) : 78 (QS system process) : 97 (QS system process) Pulse: 95 (QS system process) LaborFlag: Labor (QS system process) Datetime: 05/11/2016 03:15 Monitor Mode: External (Marissa Jean-Paul, RN) Frequency (min): 3-6 (Marissa Jean-Paul, RN) Quality: Mild/Moderate (Marissa Jean-Paul, RN) Duration (sec): 60-90 (Marissa Jean-Paul, RN) Resting Tone (Palpate): Relaxed (Marissa Jean-Paul, RN) Monitor Mode: External US (Marissa Jean-Paul, RN) FHR Baseline Rate : 150 (Marissa Jean-Paul, RN) Variability: Moderate 6-25 bpm (Marissa Jean-Paul, RN) Accelerations: 15X15 (Marissa Jean-Paul, RN) Decelerations: None (Marissa Jean-Paul, RN) Datetime: 05/11/2016 03:13 NBP Sys/Isamar/Mean (mmHg): 135 (QS system process) : 75 (QS system process) : 99 (QS system process) Pulse: 90 (QS system process) LaborFlag: Labor (QS system process) Datetime: 05/11/2016 03:02 IV/Blood Work: IV Bolus Started (Marissa Jean-Paul, RN) Patient Care Comments: D5LR bolus started (Marissa Jean-Paul, RN) Datetime: 05/11/2016 03:00 Monitor Mode: External (Marissa Jaen-Paul, RN) Frequency (min): 2-6 (Marissa Jean-Paul, RN) Quality: Mild/Moderate (Marissa Jean-Paul, RN) Duration (sec): 60-90 (Marissa Jean-Paul, RN) Resting Tone (Palpate): Relaxed (Marissa Jean-Paul, RN) Monitor Mode: External US (Marissa Jean-Paul, RN) FHR Baseline Rate : 145 (Marissa Jean-Paul, RN) Variability: Moderate 6-25 bpm (Marissa Jean-Paul, RN) Accelerations: 15X15 (Marissa Jean-Paul, RN) Decelerations: Late (Marissa Jean-Paul, RN) Datetime: 05/11/2016 02:57 NBP Sys/Isamar/Mean (mmHg): 121 (QS system process) : 64 (QS system process) : 86 (QS system process) Pulse: 92 (QS system process) Communication: Provider Orders Received; Call/Page Placed to Provider; Report Given to @ Dr Cornell (Marissa Jeong RN) Communication Comments: report re: FHR given to Dr Cornell; orders to continue to monitor FHR and give D5LR bolus (Marissa Jeong RN) LaborFlag: Labor (QS system process) Datetime: 05/11/2016 02:45 Monitor Mode: External (Marissa Jean-Paul, RN) Frequency (min): 5-6 (Marissa Jean-Paul, RN) Quality: Mild/Moderate (Marissa Jean-Paul, RN) Duration (sec): 60 (Marissa Jean-Paul, RN) Resting Tone (Palpate): Non Relaxed (Marissa Jean-Paul, RN) Monitor Mode: External US (Marissa Jean-Paul, RN) FHR Baseline Rate : 150 (Marissa Jean-Paul, RN) Variability: Moderate 6-25 bpm (Marissa Jean-Paul, RN) Accelerations: 15X15 (Marissa Jean-Paul, RN) Decelerations: None (Marissa Jean-Paul, RN) Datetime: 05/11/2016 02:42 NBP Sys/Isamar/Mean (mmHg): 125 (QS system process) : 67 (QS system process) : 89 (QS system process) Pulse: 96 (QS system process) LaborFlag: Labor (QS system process) Datetime: 05/11/2016 02:30 Monitor Mode: External (Marissa Jean-Paul, RN) Frequency (min): 5-7 (Marissa Jean-Paul, RN) Quality: Mild/Moderate (Marissa Jean-Paul, RN) Duration (sec): 70-80 (Marissa Jean-Paul, RN) Resting Tone (Palpate): Relaxed (Marissa Jean-Paul, RN) Monitor Mode: External US (Marissa Jean-Paul, RN) FHR Baseline Rate : 145 (Marissa Jean-Paul, RN) Variability: Moderate 6-25 bpm (Marissa Jean-Paul, RN) Accelerations: None (Marissa Jean-Paul, RN) Decelerations: Late; Prolonged (Marissa Jean-Paul, RN) Datetime: 05/11/2016 02:24 Actions for Decelerations: Hands and Knees (Marissa Jean-Paul, RN) Datetime: 05/11/2016 02:15 Monitor Mode: External (Marissa Jean-Paul, RN) Frequency (min): 4-5 (Marissa Jean-Paul, RN) Quality: Mild/Moderate (Marissa Jean-Paul, RN) Duration (sec): 60-70 (Marissa Jean-Paul, RN) Resting Tone (Palpate): Relaxed (Marissa Jean-Paul, RN) Monitor Mode: External US (Marissa Jean-Paul, RN) FHR Baseline Rate : 145 (Marissa Jean-Paul, RN) Variability: Moderate 6-25 bpm (Marissa Jean-Paul, RN) Accelerations: None (Marissa Jean-Paul, RN) Decelerations: Late (Marissa Jean-Paul, RN) Datetime: 05/11/2016 02:13 NBP Sys/Isamar/Mean (mmHg): 123 (QS system process) : 60 (QS system process) : 83 (QS system process) Pulse: 87 (QS system process) LaborFlag: Labor (QS system process) Datetime: 05/11/2016 02:00 Monitor Mode: External (Marissa Jean-Paul, RN) Frequency (min): 2-5 (Marissa Jean-Paul, RN) Quality: Mild/Moderate (Marissa Jean-Paul, RN) Duration (sec): 50-60 (Marissa Jean-Paul, RN) Resting Tone (Palpate): Relaxed (Marissa Jean-Paul, RN) Monitor Mode: External US (Marissa Jean-Paul, RN) FHR Baseline Rate : 150 (Marissa Jean-Paul, RN) Variability: Moderate 6-25 bpm (Marissa Jean-Paul, RN) Accelerations: None (Marissa Jean-Paul, RN) Decelerations: Late (Marissa Jean-Paul, RN) Datetime: 05/11/2016 01:57 NBP Sys/Isamar/Mean (mmHg): 120 (QS system process) : 63 (QS system process) : 84 (QS system process) Pulse: 98 (QS system process) LaborFlag: Labor (QS system process) Datetime: 05/11/2016 01:46 Comments: O2 discontinued (Marissa Jean-Paul, RN) Patient Position/Activity: Right Tilt; Low Fowlers (Marissa Jean-Paul, RN) Datetime: 05/11/2016 01:45 Monitor Mode: External (Marissa Jean-Paul, RN) Frequency (min): 3-4 (Marissa Jean-Paul, RN) Quality: Mild/Moderate (Marissa Jean-Paul, RN) Duration (sec): 60-80 (Marissa Jean-Paul, RN) Resting Tone (Palpate): Relaxed (Marissa Jean-Paul, RN) Monitor Mode: External US (Marissa Jean-Paul, RN) FHR Baseline Rate : 145 (Marissa Jean-Paul, RN) Variability: Moderate 6-25 bpm (Marissa Jean-Paul, RN) Accelerations: 10X10 (Marissa Jean-Paul, RN) Decelerations: Late (Marissa Jean-Paul, RN) Datetime: 05/11/2016 01:43 NBP Sys/Isamar/Mean (mmHg): 117 (QS system process) : 59 (QS system process) : 80 (QS system process) Pulse: 88 (QS system process) LaborFlag: Labor (QS system process) Datetime: 05/11/2016 01:33 Actions for Decelerations: Trendelenberg; Oxygen Applied; Pitocin Off; IV Bolus; Sterile Vaginal Exam (Marissa Jeong RN) Dilatation (cm): 3.5 (Marissa Jeong RN) Effacement (%): 70 (Marissa Jeong RN) Station: -1 (Marissa Jeong RN) Exam by: Maine Jeong RN (Marissa Jeong RN) Datetime: 05/11/2016 01:30 Monitor Mode: External (Marissa Jeong RN) Frequency (min): 4-5 (Marissa Jeong RN) Quality: Mild/Moderate (Marissa Jeong RN) Duration (sec): 40-60 (Marissa Jeong RN) Resting Tone (Palpate): Relaxed (Marissa Jeong RN) Monitor Mode: External US (Marissa Jean-Paul, RN) FHR Baseline Rate : 150 (Marissa Jean-Paul, RN) Variability: Moderate 6-25 bpm (Marissa Jean-Paul, RN) Accelerations: 10X10 (Marissa Jean-Paul, RN) Decelerations: Late (Marissa Jean-Paul, RN) Pitocin (milliunit): Pitocin Remains (milliunits) @ 4 (Marissa Jean-Paul, RN) Datetime: 05/11/2016 01:27 NBP Sys/Isamar/Mean (mmHg): 121 (QS system process) : 72 (QS system process) : 91 (QS system process) Pulse: 129 (QS system process) Temperature (F): 98.6 (Marissa Jean-Paul, RN) Temperature (C): 37.0 (QS system process) Temperature Route: Oral (Marissa Jean-Paul, RN) LaborFlag: Labor (QS system process) Datetime: 05/11/2016 01:15 Monitor Mode: External (Marissa Jean-Paul, RN) Frequency (min): 4-5 (Marissa Jean-Paul, RN) Quality: Mild/Moderate (Marissa Jean-Paul, RN) Duration (sec): 50-60 (Marissa Jean-Paul, RN) Resting Tone (Palpate): Relaxed (Marissa Jean-Paul, RN) Monitor Mode: External US (Marissa Jean-Paul, RN) FHR Baseline Rate : 150 (Marissa Jean-Paul, RN) Variability: Moderate 6-25 bpm (Marissa Jean-Paul, RN) Accelerations: None (Marissa Jean-Paul, RN) Decelerations: Late (Marissa Jean-Paul, RN) Pitocin (milliunit): Pitocin Remains (milliunits) @ 4 (Marissa Jean-Paul, RN) Datetime: 05/11/2016 01:13 NBP Sys/Isamar/Mean (mmHg): 125 (QS system process) : 64 (QS system process) : 86 (QS system process) Pulse: 102 (QS system process) LaborFlag: Labor (QS system process) Datetime: 05/11/2016 01:11 Actions for Decelerations: Side to Side (Marissa Jean-Paul, RN) Patient Position/Activity: Left Lateral (Marissa Jean-Paul, RN) Communication: RN at Bedside (Marissa Jean-Paul, RN) Datetime: 05/11/2016 01:00 Monitor Mode: External (Marissa Jean-Paul, RN) Frequency (min): 3-5 (Marissa Jean-Paul, RN) Quality: Mild/Moderate (Marissa Jean-Paul, RN) Duration (sec): 50-60 (Marissa Jean-Paul, RN) Resting Tone (Palpate): Relaxed (Marissa Jean-Paul, RN) Monitor Mode: External US (Marissa Jean-Paul, RN) FHR Baseline Rate : 150 (Marissa Jean-Paul, RN) Variability: Moderate 6-25 bpm (Marissa Jean-Paul, RN) Accelerations: None (Marissa Jean-Paul, RN) Decelerations: Late (Marissa Jean-Paul, RN) Pitocin (milliunit): Pitocin Remains (milliunits) @ 4 (Amrissa Jean-Paul, RN) Datetime: 05/11/2016 00:58 NBP Sys/Isamar/Mean (mmHg): 109 (QS system process) : 51 (QS system process) : 72 (QS system process) Pulse: 90 (QS system process) LaborFlag: Labor (QS system process) Datetime: 05/11/2016 00:55 Actions for Decelerations: Side to Side (Marissa Callejasl, RN) Patient Position/Activity: Right Lateral (Marissa Jean-Paul, RN) Communication: RN at Bedside (Marissa Jean-Paul, RN) Datetime: 05/11/2016 00:45 Monitor Mode: External (Marissa Wigginssel, RN) Frequency (min): 4-5 (Marissa Callejasl, RN) Quality: Mild/Moderate (Marissa Jean-Paul, RN) Duration (sec): 50-70 (Marissa Jean-Paul, RN) Resting Tone (Palpate): Relaxed (Marissa Jeong RN) Monitor Mode: External US (Marissa Jean-Paul, RN) FHR Baseline Rate : 145 (Marissa Jean-Paul, RN) Variability: Moderate 6-25 bpm (Marissa Jean-Paul, RN) Accelerations: None (Marissa Jean-Paul, RN) Decelerations: None (Marissa Jean-Paul, RN) Pitocin (milliunit): Pitocin Remains (milliunits) @ (Annotations: 4 ) (Marissa Jean-Paul, RN) Datetime: 05/11/2016 00:42 NBP Sys/Isamar/Mean (mmHg): 111 (QS system process) : 64 (QS system process) : 81 (QS system process) Pulse: 100 (QS system process) LaborFlag: Labor (QS system process) Datetime: 05/11/2016 00:35 Pitocin (milliunit): Pitocin Increased to (milliunits) @ 4 (Marissa Jean-Paul, RN) Datetime: 05/11/2016 00:30 Monitor Mode: External (Marissa Jean-Paul, RN) Frequency (min): 4-5 (Marissa Jean-Paul, RN) Quality: Mild/Moderate (Marissa Jean-Paul, RN) Duration (sec): 40-60 (Marissa Jean-Paul, RN) Resting Tone (Palpate): Relaxed (Marissa Jean-Paul, RN) Monitor Mode: External US (Marissa Jean-Paul, RN) FHR Baseline Rate : 150 (Marissa Jean-Paul, RN) Variability: Moderate 6-25 bpm (Marissa Jean-Paul, RN) Accelerations: 15X15 (Marissa Jean-Paul, RN) Decelerations: Late (Marissa Jean-Paul, RN) Pitocin (milliunit): Pitocin Remains (milliunits) @ 2 (Marissa Jean-Paul, RN) Datetime: 05/11/2016 00:27 NBP Sys/Isamar/Mean (mmHg): 119 (QS system process) : 68 (QS system process) : 87 (QS system process) Pulse: 91 (QS system process) LaborFlag: Labor (QS system process) Datetime: 05/11/2016 00:15 Monitor Mode: External (Marissa Jaen-Paul, RN) Frequency (min): 4-6 (Marissa Jean-Paul, RN) Quality: Mild/Moderate (Marissa Jean-Paul, RN) Duration (sec): 50-60 (Marissa Jean-Paul, RN) Resting Tone (Palpate): Relaxed (Marissa Jean-Paul, RN) Monitor Mode: External US (Marissa Jean-Paul, RN) FHR Baseline Rate : 150 (Marissa Jean-Paul, RN) Variability: Moderate 6-25 bpm (Marissa Jean-Paul, RN) Accelerations: 10X10 (Marissa Jean-Paul, RN) Decelerations: None (Marissa Jean-Paul, RN) Pitocin (milliunit): Pitocin Remains (milliunits) @ 2 (Marissa Jean-Paul, RN) Datetime: 05/11/2016 00:12 NBP Sys/Isamar/Mean (mmHg): 127 (QS system process) : 69 (QS system process) : 89 (QS system process) Pulse: 90 (QS system process) LaborFlag: Labor (QS system process) Datetime: 05/11/2016 00:03 Pitocin (milliunit): Pitocin Started (milliunits) @ 2 (Marissa Jean-Paul, RN) Datetime: 05/11/2016 00:00 Monitor Mode: External (Marissa Jean-Paul, RN) Frequency (min): 5 (Marissa Jean-Paul, RN) Quality: Mild/Moderate (Marissa Jean-Paul, RN) Duration (sec): 60-80 (Marissa Jean-Paul, RN) Resting Tone (Palpate): Relaxed (Marissa Jean-Paul, RN) Monitor Mode: External US (Marissa Jean-Paul, RN) FHR Baseline Rate : 140 (Marissa Jean-Paul, RN) Variability: Moderate 6-25 bpm (Marissa Jean-Paul, RN) Accelerations: 15X15 (Marissa Jean-Paul, RN) Decelerations: None (Marissa Jean-Paul, RN) Datetime: 05/10/2016 23:58 NBP Sys/Isamar/Mean (mmHg): 133 (QS system process) : 59 (QS system process) : 85 (QS system process) Pulse: 103 (QS system process) LaborFlag: Labor (QS system process) Datetime: 05/10/2016 23:57 Dilatation (cm): 3.0 (Marissa Jeong RN) Effacement (%): 70 (Marissa Jeong RN) Station: -1 (Marissa Jeong RN) Vaginal Bleeding: None (Marissa Jeong RN) Cervix, Consistency: Soft (Marissa Jeong RN) Cervix, Position: Anterior (Marissa Jeong RN) Dilatation (cm): 3-4 cms (Marissa Jeong RN) Effacement: 60-70_ effaced (Marissa Jeong RN) Station: minus 1 to 0 (Marissa Jeong RN) Consistency: Medium (Marissa Jeong RN) Position: Anterior (Marissa Jeong RN) Total Vogt's Score: 9 (QS system process) : 9-14 = Usually no failure for induction (QS system process) Datetime: 05/10/2016 23:45 Monitor Mode: External (Marissa Jean-Paul, RN) Frequency (min): 2-6 (Marissa Jean-Paul, RN) Quality: Mild/Moderate (Marissa Jean-Paul, RN) Duration (sec): 30-70 (Marissa Jean-Paul, RN) Resting Tone (Palpate): Relaxed (Marissa Jean-Paul, RN) Monitor Mode: External US (Marissa Jean-Paul, RN) FHR Baseline Rate : 145 (Marissa Jean-Paul, RN) Variability: Moderate 6-25 bpm (Marissa Jean-Paul, RN) Accelerations: None (Marissa Jean-Paul, RN) Decelerations: None (Marissa Jean-Apul, RN) Datetime: 05/10/2016 23:43 NBP Sys/Isamar/Mean (mmHg): 125 (QS system process) : 58 (QS system process) : 81 (QS system process) Pulse: 109 (QS system process) LaborFlag: Labor (QS system process) Datetime: 05/10/2016 23:30 Monitor Mode: External (Marissa Jean-Paul, RN) Frequency (min): 4-5 (Marissa Jean-Paul, RN) Quality: Mild/Moderate (Marissa Jean-Paul, RN) Duration (sec): 40-50 (Marissa Jean-Paul, RN) Resting Tone (Palpate): Relaxed (Mraissa Jean-Paul, RN) Monitor Mode: External US (Marissa Jean-Paul, RN) FHR Baseline Rate : 150 (Marissa Jean-Paul, RN) Variability: Moderate 6-25 bpm (Marissa Jean-Paul, RN) Accelerations: 10X10 (Marissa Jean-Paul, RN) Decelerations: None (Marissa Jean-Paul, RN) Datetime: 05/10/2016 23:27 NBP Sys/Isamar/Mean (mmHg): 118 (QS system process) : 56 (QS system process) : 81 (QS system process) Pulse: 98 (QS system process) LaborFlag: Labor (QS system process) Datetime: 05/10/2016 23:15 Monitor Mode: External (Marissa Jean-Paul, RN) Frequency (min): 2-5 (Marissa Jean-Paul, RN) Quality: Mild/Moderate (Marissa Jean-Paul, RN) Duration (sec): 50-70 (Marissa Jean-Paul, RN) Resting Tone (Palpate): Relaxed (Marissa Jean-Paul, RN) Monitor Mode: External US (Marissa Jean-Paul, RN) FHR Baseline Rate : 140 (Marissa Jean-Paul, RN) Variability: Moderate 6-25 bpm (Marissa Jean-Paul, RN) Accelerations: 15X15 (Marissa Jean-Paul, RN) Decelerations: None (Marissa Jean-Paul, RN) Datetime: 05/10/2016 23:12 NBP Sys/Isamar/Mean (mmHg): 127 (QS system process) : 64 (QS system process) : 88 (QS system process) Pulse: 107 (QS system process) LaborFlag: Labor (QS system process) Datetime: 05/10/2016 23:00 Monitor Mode: External (Marissa Jean-Paul, RN) Frequency (min): 2-4 (Marissa Jean-Paul, RN) Quality: Mild/Moderate (Marissa Jean-Paul, RN) Duration (sec): 40-70 (Marissa Jean-Paul, RN) Resting Tone (Palpate): Relaxed (Marissa Jean-Paul, RN) Monitor Mode: External US (Marissa Jean-Paul, RN) FHR Baseline Rate : 145 (Marissa Jean-Paul, RN) Variability: Moderate 6-25 bpm (Marissa Jean-Paul, RN) Accelerations: 15X15 (Marissa Jean-Paul, RN) Decelerations: None (Marissa Jean-Paul, RN) Datetime: 05/10/2016 22:59 NBP Sys/Isamar/Mean (mmHg): 128 (QS system process) : 72 (QS system process) : 94 (QS system process) Pulse: 103 (QS system process) LaborFlag: Labor (QS system process) Datetime: 05/10/2016 22:45 Monitor Mode: External (Marissa Jean-Paul, RN) Frequency (min): 4-5 (Marissa Jean-Paul, RN) Quality: Mild/Moderate (Marissa Jean-Paul, RN) Duration (sec): 50-60 (Marissa Jean-Paul, RN) Resting Tone (Palpate): Relaxed (Marissa Jean-Paul, RN) Monitor Mode: External US (Marissa Jean-Paul, RN) FHR Baseline Rate : 140 (Marissa Jean-Paul, RN) Variability: Moderate 6-25 bpm (Marissa Jean-Paul, RN) Accelerations: 15X15 (Marissa Jean-Paul, RN) Decelerations: None (Marissa Jean-Paul, RN) Datetime: 05/10/2016 22:42 NBP Sys/Isamar/Mean (mmHg): 119 (QS system process) : 60 (QS system process) : 83 (QS system process) Pulse: 103 (QS system process) LaborFlag: Labor (QS system process) Datetime: 05/10/2016 22:30 Monitor Mode: External (Marissa Jean-Paul, RN) Frequency (min): 3-4 (Marissa Jean-Paul, RN) Quality: Mild/Moderate (Marissa Jean-Paul, RN) Duration (sec): 50-60 (Marissa Jean-Paul, RN) Resting Tone (Palpate): Relaxed (Marissa Jean-Paul, RN) Monitor Mode: External US (Marissa Jean-Paul, RN) FHR Baseline Rate : 145 (Marissa Jean-Paul, RN) Variability: Moderate 6-25 bpm (Marissa Jean-Paul, RN) Accelerations: None (Marissa Jean-Paul, RN) Decelerations: None (Marissa Jean-Paul, RN) Datetime: 05/10/2016 22:27 NBP Sys/Isamar/Mean (mmHg): 122 (QS system process) : 67 (QS system process) : 86 (QS system process) Pulse: 105 (QS system process) LaborFlag: Labor (QS system process) Datetime: 05/10/2016 22:15 Monitor Mode: External (Marissa Jean-Paul, RN) Frequency (min): 3-5 (Marissa Jean-Paul, RN) Quality: Mild/Moderate (Marissa Jean-Paul, RN) Duration (sec): 50-60 (Marissa Jean-Paul, RN) Resting Tone (Palpate): Relaxed (Marissa Jean-Paul, RN) Monitor Mode: External US (Marissa Jean-Paul, RN) FHR Baseline Rate : 140 (Marissa Jean-Paul, RN) Variability: Moderate 6-25 bpm (Marissa Jean-Paul, RN) Accelerations: 15X15 (Marissa Jean-Paul, RN) Decelerations: None (Marissa Jean-Paul, RN) Datetime: 05/10/2016 22:13 NBP Sys/Isamar/Mean (mmHg): 122 (QS system process) : 66 (QS system process) : 85 (QS system process) Pulse: 93 (QS system process) LaborFlag: Labor (QS system process) Datetime: 05/10/2016 22:00 Monitor Mode: External (Marissa Jean-Paul, RN) Frequency (min): 4-5 (Marissa Jean-Paul, RN) Quality: Mild/Moderate (Marissa Jean-Paul, RN) Duration (sec): 40-60 (Marissa Jean-Paul, RN) Duration (sec): 50-60 (Marissa Jean-Paul, RN) Resting Tone (Palpate): Relaxed (Marissa Jean-Paul, RN) Monitor Mode: External US (Marissa Jean-Paul, RN) FHR Baseline Rate : 140 (Marissa Jean-Paul, RN) FHR Baseline Rate : 145 (Marissa Jean-Paul, RN) Variability: Moderate 6-25 bpm (Marissa Jean-Paul, RN) Accelerations: 15X15 (Marissa Jean-Paul, RN) Decelerations: None (Marissa Jean-Paul, RN) Datetime: 05/10/2016 21:58 NBP Sys/Isamar/Mean (mmHg): 128 (QS system process) : 64 (QS system process) : 91 (QS system process) Pulse: 96 (QS system process) LaborFlag: Labor (QS system process) Datetime: 05/10/2016 21:45 Monitor Mode: External (Marissa Jean-Paul, RN) Frequency (min): 4-5 (Marissa Jean-Paul, RN) Quality: Mild/Moderate (Marissa Jean-Paul, RN) Duration (sec): 50-60 (Marissa Jean-Paul, RN) Resting Tone (Palpate): Relaxed (Marissa Jean-Paul, RN) Monitor Mode: External US (Marissa Jean-Paul, RN) FHR Baseline Rate : 130 (Marissa Jean-Paul, RN) Variability: Moderate 6-25 bpm (Marissa Jean-Paul, RN) Accelerations: 15X15 (Marissa Jean-Paul, RN) Decelerations: None (Marissa Jean-Paul, RN) Datetime: 05/10/2016 21:42 NBP Sys/Isamar/Mean (mmHg): 122 (QS system process) : 68 (QS system process) : 90 (QS system process) Pulse: 95 (QS system process) LaborFlag: Labor (QS system process) Datetime: 05/10/2016 21:30 Monitor Mode: External (Marissa Jean-Paul, RN) Frequency (min): 3-5 (Marissa Jean-Paul, RN) Quality: Mild/Moderate (Marissa Jean-Paul, RN) Duration (sec): 50-60 (Marissa Jean-Paul, RN) Resting Tone (Palpate): Relaxed (Marissa Jean-Paul, RN) Monitor Mode: External US (Marissa Jean-Paul, RN) FHR Baseline Rate : 135 (Marissa Jean-Paul, RN) Variability: Moderate 6-25 bpm (Marissa Jean-Paul, RN) Accelerations: 15X15 (Marissa Jean-Paul, RN) Decelerations: None (Marissa Jean-Paul, RN) Datetime: 05/10/2016 21:27 NBP Sys/Isamar/Mean (mmHg): 123 (QS system process) : 69 (QS system process) : 90 (QS system process) Pulse: 90 (QS system process) LaborFlag: Labor (QS system process) Datetime: 05/10/2016 21:15 Monitor Mode: External (Marissa Jean-Paul, RN) Frequency (min): 3-4 (Marissa Jean-Paul, RN) Quality: Mild/Moderate (Marissa Jean-Paul, RN) Duration (sec): 50-60 (Marissa Jean-Paul, RN) Resting Tone (Palpate): Relaxed (Marissa Jean-Paul, RN) Monitor Mode: External US (Marissa Jean-Paul, RN) FHR Baseline Rate : 135 (Marissa Jean-Paul, RN) Variability: Moderate 6-25 bpm (Marissa Jean-Paul, RN) Accelerations: None (Marissa Jean-Paul, RN) Decelerations: None (Marissa Jean-Paul, RN) Datetime: 05/10/2016 21:12 NBP Sys/Isamar/Mean (mmHg): 135 (QS system process) : 72 (QS system process) : 97 (QS system process) Pulse: 88 (QS system process) LaborFlag: Labor (QS system process) Datetime: 05/10/2016 21:00 Monitor Mode: External (Marissa Jean-Paul, RN) Frequency (min): 5-6 (Marissa Jean-Paul, RN) Quality: Mild/Moderate (Marissa Jean-Paul, RN) Duration (sec): 60-70 (Marissa Jean-Paul, RN) Resting Tone (Palpate): Relaxed (Marissa Jean-Paul, RN) Monitor Mode: External US (Marissa Jean-Paul, RN) FHR Baseline Rate : 135 (Marissa Jean-Paul, RN) Variability: Moderate 6-25 bpm (Marissa Jean-Paul, RN) Accelerations: 15X15 (Marissa Jean-Paul, RN) Decelerations: None (Marissa Jean-Paul, RN) Datetime: 05/10/2016 20:58 NBP Sys/Isamar/Mean (mmHg): 131 (QS system process) : 88 (QS system process) : 105 (QS system process) Pulse: 86 (QS system process) LaborFlag: Labor (QS system process) Datetime: 05/10/2016 20:45 Monitor Mode: External (Marissa Jean-Paul, RN) Frequency (min): x1 (Marissa Jean-Paul, RN) Quality: Mild/Moderate (Marissa Jean-Paul, RN) Duration (sec): 60 (Marissa Jean-Paul, RN) Resting Tone (Palpate): Relaxed (Marissa Jean-Paul, RN) Monitor Mode: External US (Marissa Jean-Paul, RN) FHR Baseline Rate : 135 (Marissa Jean-Paul, RN) Variability: Moderate 6-25 bpm (Marissa Jean-Paul, RN) Accelerations: 15X15 (Marissa Jean-Paul, RN) Decelerations: None (Marissa Jean-Paul, RN) Datetime: 05/10/2016 20:42 NBP Sys/Isamar/Mean (mmHg): 126 (QS system process) : 74 (QS system process) : 96 (QS system process) Pulse: 85 (QS system process) LaborFlag: Labor (QS system process) Datetime: 05/10/2016 20:30 Monitor Mode: External (Marissa Jean-Paul, RN) Frequency (min): 4-5 (Marissa Jean-Paul, RN) Quality: Mild/Moderate (Marissa Jean-Paul, RN) Duration (sec): 60-80 (Marissa Jean-Paul, RN) Resting Tone (Palpate): Relaxed (Marissa Jean-Paul, RN) Monitor Mode: External US (Marissa Jean-Paul, RN) FHR Baseline Rate : 135 (Marissa Jean-Paul, RN) Variability: Moderate 6-25 bpm (Marissa Jean-Paul, RN) Accelerations: 15X15 (Marissa Jean-Paul, RN) Decelerations: None (Marissa Jean-Paul, RN) Datetime: 05/10/2016 20:27 NBP Sys/Isamar/Mean (mmHg): 125 (QS system process) : 73 (QS system process) : 92 (QS system process) Pulse: 81 (QS system process) LaborFlag: Labor (QS system process) Datetime: 05/10/2016 20:15 Monitor Mode: External (Marissa Jean-Paul, RN) Frequency (min): 6 (Marissa Jean-Paul, RN) Quality: Mild/Moderate (Marissa Jean-Paul, RN) Duration (sec): 50-60 (Marissa Jean-Paul, RN) Resting Tone (Palpate): Relaxed (Marissa Jean-Paul, RN) Monitor Mode: External US (Marissa Jean-Paul, RN) FHR Baseline Rate : 130 (Marissa Jean-Paul, RN) Variability: Moderate 6-25 bpm (Marissa Jean-Paul, RN) Accelerations: 15X15 (Marissa Jean-Paul, RN) Decelerations: None (Marissa Jean-Paul, RN) Datetime: 05/10/2016 20:12 NBP Sys/Isamar/Mean (mmHg): 122 (QS system process) : 76 (QS system process) : 93 (QS system process) Pulse: 90 (QS system process) LaborFlag: Labor (QS system process) Datetime: 05/10/2016 20:00 Monitor Mode: External (Marissa Jeong RN) Frequency (min): 7 (Marissa Jeong RN) Quality: Mild/Moderate (Marissa Jeong RN) Duration (sec): 50-70 (Marissa Jeong RN) Resting Tone (Palpate): Relaxed (Marissa Jeong RN) Monitor Mode: External US (Marissa Jeong RN) FHR Baseline Rate : 130 (Marissa Jeong RN) Variability: Moderate 6-25 bpm (Marissa Jeong RN) Accelerations: 15X15 (Marissa Jeong RN) Decelerations: None (Marissa Jeong RN) Medication Comments: cytotec 25 mcg PV and 50 mcg PO (Marissa Jeong RN)
--- NOTE | 2016-05-11 08:56 | Admission Physical ---
Datetime Report Generated by CPN: 05/11/2016 08:55 CURRENT ADMISSION Hx Assessment: The History has been Reviewed and is Current Chief Complaint: Scheduled Induction of Labor Indication for Induction: Chronic Hypertension Admit Plan: Admit to Unit; Initiate Labor Induction Protocol ALLERGIES Medication Allergies: No Medication Allergies: latex/swelling (05/08/2016) Medication Allergies: latex/swelling (05/02/2016) Medication Allergies: latex/swelling (04/07/2012) Latex: Latex Allergies Food Allergies: N/A Environmental Allergies: N/A OBSTETRICAL HISTORY EDC: 05/23/2016 00:00 : 3 Para: 1 Term: 1 : 0 SAB: 1 Ectopic: 0 Livin Cesareans: 0 VBACs: 0 Multiple Births: 0 Gestational Diabetes: No Rh Sensitization: No Incompetent Cervix: No EVONNE: No Infertility: No ART Treatment: No Uterine Anomaly: No IUGR: No Hx Previous C/S: No Macrosomia: No Hx Loss/Stillborn: No PIH: No Hx : No Placenta Previa/Abruption: No Depression/PP Depression: No PTL/PROM: No Post Hemorrhage: No Current Procedures: Ultrasound; NST Obstetrical History Comments: G1: 2009 SAB G2: 2011 37.5 weeks baby girl, 7 lb 5 oz G3: Current SEE RECORDS Alcohol: No Marijuana : No Cocaine: No Other Illicit Drugs: No Cigarettes: Former Smoker. [id number] MEDICAL HISTORY Diabetes: No Blood Transfusion: No Pulmonary Disease (Asthma, TB): No Breast Disease: No Hypertension: No Brush Or Broom Cutter Surgery: No Heart Disease: No Hosp/Surgery: Yes Autoimmune Disorder: No Anesthetic Complications: No Kidney Disease: No Abnormal Pap Smear: No Neuro/Epilepsy: No Psychiatric Disorders: No Other Medical Diseases: No Hepatitis/Liver Disease: No Significant Family History: No Varicosities/Phlebitis: No Trauma/Violence : No Thyroid Dysfunction: No Medical History Comments: Surgery: Tonsillectomy; ACL repair 2001 INFECTIOUS HISTORY Gonorrhea: No Genital Herpes: No Chlamydia: No Tuberculosis: No Syphilis: No Hepatitis: No HIV/AIDS Exposure: No Rash or Viral Illness: No HPV: No PHYSICAL EXAM General: Normal HEENT: Deferred Neurologic: Deferred Thyroid: Deferred Heart: Normal Lungs: Normal Breast: Deferred Back: Deferred Abdomen: Normal Genitourinary Exam: Normal Extremities: Normal DTRs: Normal Pelvic Type: Adequate Vital Signs: Reviewed; Within Normal Limits VAGINAL EXAM Dilatation: 3 Dilatation: 1 Effacement: 75 Effacement: 75 Station: -2 Station: -2 MEMBRANES Membranes: Ruptured Membranes: Intact Amniotic Fluid Color: Clear FETUS A EGA: 38.0 FHR- Baseline: 140 Variability: Moderate 6-25bpm Accelerations: 15X15 Decelerations: None FHR Category: Category I Admit Comment: 39w induction for cHTN. Cervidil tonight. gbs neg PLANS FOR LABOR AND DELIVERY Labor and Delivery: None Pain Management: Medications; Epidural Feeding Preference: Breast Benefit of Breast Feed Discussed: Yes Circumcision: N/A INFORMED CONSENT Informed Consent Obtained: Vaginal Delivery; Risks, Benefits and Alternatives Discussed Signature: with User ID: [email or web address]
[2016-05-11] MEDS: SENNOSIDES/DOCUSATE 8.6-50 MG 1 EACH TABLET PO SCH (10:24)
[2016-05-11] MEDS: DOCUSATE SODIUM 100 MG CAPSULE PO SCH ×2 (10:24→17:27)
[2016-05-11] MEDS: PRENATAL VITAMIN W-O CA NO5/FE FUMARATE/FA CAPSULE PO SCH (10:24)
[2016-05-11] MEDS: FERROUS SULFATE 325 MG TABLET PO SCH ×2 (10:25→17:27)
[2016-05-11] MEDS: IBUPROFEN 800 MG TABLET PO SCH ×2 (13:57→21:06)
--- NOTE | 2016-05-11 19:00 | L&D Flow Sheet ---
LD Flowsheet Datetime Report Generated by CPN: 05/11/2016 19:00 Datetime: 05/11/2016 08:48 NBP Sys/Isamar/Mean (mmHg): 121 (QS system process) : 73 (QS system process) : 86 (QS system process) Pulse: 106 (QS system process) Datetime: 05/11/2016 08:42 NBP Sys/Isamar/Mean (mmHg): 121 (QS system process) : 63 (QS system process) : 84 (QS system process) Pulse: 100 (QS system process) Datetime: 05/11/2016 08:27 Stage of : Recovery (Melania Bellavance, RNC) NBP Sys/Isamar/Mean (mmHg): 129 (QS system process) : 68 (QS system process) : 93 (QS system process) Pulse: 96 (QS system process) Respirations: 18 (Melania Bellavance, RNC) Datetime: 05/11/2016 08:19 Stage of : Recovery (Melania Bellavance, RNC) NBP Sys/Isamar/Mean (mmHg): 143 (QS system process) : 74 (QS system process) : 102 (QS system process) Pulse: 100 (QS system process) Respirations: 16 (Melania Bellavance, RNC) Datetime: 05/11/2016 08:12 Stage of : Recovery (Melania Bellavance, RNC) NBP Sys/Isamar/Mean (mmHg): 132 (QS system process) : 71 (QS system process) : 96 (QS system process) Pulse: 100 (QS system process) Respirations: 18 (Melania Bellavance, RNC) Datetime: 05/11/2016 07:57 Stage of : Recovery (Melania Bellavance, RNC) NBP Sys/Isamar/Mean (mmHg): 131 (QS system process) : 66 (QS system process) : 93 (QS system process) Pulse: 109 (QS system process) Respirations: 18 (Melania Bellavance, RNC) Datetime: 05/11/2016 07:42 Stage of : Recovery (Melania Bellavance, RNC) NBP Sys/Isamar/Mean (mmHg): 137 (QS system process) : 64 (QS system process) : 90 (QS system process) Pulse: 110 (QS system process) Respirations: 16 (Melania Bellavance, RNC) Datetime: 05/11/2016 07:27 Stage of : Recovery (Melania Bellavance, RNC) NBP Sys/Isamar/Mean (mmHg): 129 (QS system process) : 60 (QS system process) : 87 (QS system process) Pulse: 120 (QS system process) Respirations: 18 (Melania Bellavance, RNC) Datetime: 05/11/2016 07:12 Stage of : Recovery (Melania Bellavance, RNC) NBP Sys/Isamar/Mean (mmHg): 142 (QS system process) : 67 (QS system process) : 97 (QS system process) Pulse: 109 (QS system process) Respirations: 16 (Melania Bellavance, RNC) Datetime: 05/11/2016 07:07 Communication: Report Given to @ D Bellavance RNC (Marissa Jean-Paul, RN) Communication Comments: Care relinquished (Marissa Jean-Paul, RN) Datetime: 05/11/2016 07:00 Stage of : Recovery (Melania Bellavance, RNC) Respirations: 16 (Melania Bellavance, RNC) Pain Scale: 1 (Melania Bellavance, RNC) Pain Presence: Constant (Melania Bellavance, RNC) Pain Type: Ache (Melania Bellavance, RNC) Pain Location: Back (Melania Bellavance, RNC)
--- NOTE | 2016-05-12 06:00 | L&D General Admission ---
General Admit Datetime Report Generated by CPN: 05/12/2016 06:00 INFORMATION Patient Age: 25 (03/07/2016 08:19:QS system process) EDC: 05/23/2016 00:00 (03/20/2016 14:41:Lilo Corbin RN) : 3 (03/20/2016 14:41:Lilo Corbin RN) Para: 1 (03/20/2016 14:41:Lilo Corbin RN) Term: 1 (03/20/2016 14:41:Lilo Corbin RN) : 0 (03/20/2016 14:41:Lilo Corbin RN) Spontaneous Abortions: 1 (03/20/2016 14:41:Lilo Corbin RN) Livin (03/20/2016 14:41:Lilo Corbin RN) Cesareans: 0 (03/20/2016 14:41:Lilo Corbin RN) VBACs: 0 (03/20/2016 14:41:Lilo Corbin RN) Ectopic: 0 (03/20/2016 14:41:Lilo Corbin RN) Multiple Births: 0 (03/20/2016 14:41:Lilo Corbin RN) Baby, Number in Womb: 1 (03/20/2016 14:41:Lilo Corbin RN) CARE Primary Publication Specialist: [employer] [facility] (03/20/2016 14:41:Lilo Corbin RN) Month of 1st Visit: 09/2015 (03/20/2016 14:41:Lilo Corbin RN) Adequate Care: Yes (03/20/2016 14:41:Lilo Corbin RN) Prepregnancy Weight (lb): 140 (03/20/2016 14:41:Lilo Corbin RN) Prepregnancy Weight (kg): 63.6 (03/20/2016 14:41:QS system process) Height (in): 62 (05/11/2016 13:55:QS system process) ALLERGIES Medication Allergy: No (03/20/2016 14:41:Lilo Corbin RN) Medication Allergies: latex/swelling (05/08/2016) (05/08/2016 16:36:QS system process) Latex Allergy: Latex Allergies (03/20/2016 14:41:Lilo Corbin RN) Food Allergies: N/A (03/20/2016 14:41:Lilo Corbin RN) Environmental Allergies: N/A (03/20/2016 14:41:Lilo Corbin RN) COMMUNICATION Primary Language: Georgian (03/20/2016 14:41:Lilo Corbin RN) Medical Tx Preferred Language: Georgian (03/20/2016 14:41:Lilo Corbin RN) DEMOGRAPHICS Address: [address] [place] [id number] (03/07/2016 08:19:QS system process) Zipcode: [address] (03/07/2016 08:19:QS system process) Home (03/07/2016 08:19:QS system process) Work (05/08/2016 16:12:QS system process) SSN: [id number] (03/07/2016 08:19:QS system process) Next of Kin Name: CARLITOS MARTINES (03/07/2016 08:19:QS system process) Next of Kin (03/07/2016 08:19:QS system process) Next of Kin Relationship: SPO (03/07/2016 08:19:QS system process) Date of : 1990 (03/07/2016 08:19:QS system process) Marital Status: (03/07/2016 08:19:QS system process) Sex: Female (03/07/2016 08:19:QS system process) Occupation: Other (03/20/2016 14:41:MEGAN June) 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 [id number] (03/20/2016 14:41:Lilo Corbin RN) Marijuana: No (03/20/2016 14:41:Lilo Corbin RN) Cocaine: No (03/20/2016 14:41:Lilo Corbin RN) Other Illicit Drugs: No (03/20/2016 14:41:Lilo Corbin RN) VACCINE HISTORY Influenza Vaccine: Yes (03/20/2016 14:41:Lilo Corbin RN) Pneumococcal Vaccine: No (03/20/2016 14:41:Lilo Corbin RN) Tetanus Vaccine: Yes (03/20/2016 14:41:Lilo Corbin RN) Tdap Vaccine: Yes (03/20/2016 14:41:Lilo Corbin RN) Hepatitis B Vaccine: Yes (03/20/2016 14:41:Lilo Corbin RN) Respiratory Therapy Manager: [facility] (03/20/2016 14:41:MEGAN June) Feeding Preference: Breast (03/20/2016 14:41:Lilo Corbin RN) Benefit of Breast Feed Discussed: Yes (03/20/2016 14:41:Lilo Corbin RN) Circumcision: N/A (03/20/2016 14:41:Lilo Corbin RN) Classes Attended: No (03/20/2016 14:41:Lilo Corbin RN) Tubal Ligation: No (03/20/2016 14:41:Lilo Corbin RN) Tubal Authorization Signed: N/A (03/20/2016 14:41:Lilo Corbin RN) Consent: N/A (03/20/2016 14:41:Lilo Corbin RN) Consent Signed: N/A (03/20/2016 14:41:Lilo Corbin RN) Pain Management Plans: Medications; Epidural (03/20/2016 14:41:Lilo Corbin RN) Plans for Labor and Delivery: None (03/20/2016 14:41:Lilo Corbin RN) Support Person: Carlitos Bradleyue (03/20/2016 14:41:Lilo Corbin RN) Support Person Relationship: (03/20/2016 14:41:Lilo Corbin RN) Cultural/Spritual Practice: No (03/20/2016 14:41:Lilo Corbin RN) Spir/Cult Dietary Needs: No (03/20/2016 14:41:Lilo Corbin RN) LIVING SITUATION/DISCHARGE PLAN Living Arrangements: House (03/20/2016 14:41:Lilo Corbin RN) Adequate Access to:: Electric; Heat; Refrigeration; Plumbing/Running water; Phone; Transportation (03/20/2016 14:41:Lilo Corbin RN) WIC Program: No (03/20/2016 14:41:Lilo Corbin RN) Discharge Critical Care Nurse Specialist Person: (03/20/2016 14:41:Lilo Corbin RN) Person to Help after Discharge: (03/20/2016 14:41:Lilo Corbin RN) Currently Using Commun Resources: No (03/20/2016 14:41:Lilo Corbin RN) Outside Agency/Umbrella Tipper Machine: No (03/20/2016 14:41:Lilo Corbin RN) Car Seat for Discharge: Yes (03/20/2016 14:41:Lilo Corbin RN) Adoption Requested: No (03/20/2016 14:41:Lilo Corbin RN) Pt Contact w/ Post : N/A (03/20/2016 14:41:Lilo Corbin RN) LABS Blood Type: O Negative (03/20/2016 14:41:Lilo Corbin RN) Antibody Screen: Negative (03/20/2016 14:41:Lilo Corbin RN) Rho(G) this : Yes (03/20/2016 14:41:Lilo Corbin RN) Date Rho(G) Given: 02/29/16 (03/20/2016 14:41:Lilo Corbin RN) Hemoglobin: 10.7 L (05/09/2016 20:07:QS system process) Hematocrit: 31.1 L (05/09/2016 20:07:QS system process) MCV: 87 (05/09/2016 20:07:QS system process) Group Beta Strep: negative (03/20/2016 14:41:MEGAN June) Gonorrhea: Negative (03/20/2016 14:41:Fannie Nguyen [facility]) Chlamydia: Negative (03/20/2016 14:41:Fannie Nguyen [facility]) RPR/VDRL: Nonreactive (03/20/2016 14:41:Lilo Corbin RN) HIV Exposure Test: Negative (03/20/2016 14:41:Lilo Corbin RN) Hepatitis B: Negative (03/20/2016 14:41:Lilo Corbin RN) Rubella: Immune (03/20/2016 14:41:Lilo Corbin RN) OB/PREVIOUS HISTORY Previous Procedures: Ultrasound; NST (03/20/2016 14:41:Fannie Nguyen [facility]) Current Procedures: Ultrasound; NST (03/20/2016 14:41:Fannie Nguyen [facility]) History of Previous : No (03/20/2016 14:41:Lilo Corbin RN) History of Gestational Diabetes: No (03/20/2016 14:41:Lilo Corbin RN) History of PIH: No (03/20/2016 14:41:Lilo Corbin RN) History of Incompetent Cervix: No (03/20/2016 14:41:Lilo Corbin RN) History of Placenta Previa/Abrup: No (03/20/2016 14:41:Lilo Corbin RN) History of Macrosomia: No (03/20/2016 14:41:Lilo Corbin RN) History of IUGR: No (03/20/2016 14:41:Lilo Corbin RN) History of Hemorrhage: No (03/20/2016 14:41:Lilo Corbin RN) History of Loss/Stillborn: No (03/20/2016 14:41:Lilo Corbin RN) History of : No (03/20/2016 14:41:Lilo Corbin RN) History of D (Rh) Sensitization: No (03/20/2016 14:41:Lilo Corbin RN) History Recurrent Loss/Stillborn: No (03/20/2016 14:41:Lilo Corbin RN) History Depression/PP Depression: No (03/20/2016 14:41:Lilo Corbin RN) History of Uterine Anomaly/EVONNE: No (03/20/2016 14:41:Lilo Corbin RN) History of Infertility: No (03/20/2016 14:41:Lilo Corbin RN) History of ART Treatment: No (03/20/2016 14:41:Lilo Corbin RN) History of EVONNE: No (03/20/2016 14:41:Lilo Corbin RN) Comments Obstetrical History: G1: 2009 SAB G2: 2011 37.5 weeks baby girl, 7 lb 5 oz G3: Current (03/20/2016 14:41:Lilo Corbin RN) MEDICAL HISTORY Med Hx Diabetes: No (03/20/2016 14:41:Lilo Corbin RN) Med Hx Hypertension: No (03/20/2016 14:41:Lilo Corbin RN) Med Hx Heart Disease: No (03/20/2016 14:41:Lilo Corbin RN) Med Hx Autoimmune Disorder: No (03/20/2016 14:41:Lilo Corbin RN) Med Hx Kidney Disease/UTI: No (03/20/2016 14:41:Lilo Corbin RN) Med Hx Neurologic/Epilepsy: No (03/20/2016 14:41:Lilo Corbin RN) Med Hx Psychiatric Disorders: No (03/20/2016 14:41:Lilo Corbin RN) Med Hx Hepatitis/Liver Disease: No (03/20/2016 14:41:Lilo Corbin RN) Med Hx Varicosities/Phlebitis: No (03/20/2016 14:41:Lilo Corbin RN) Med Hx Thyroid Dysfunction: No (03/20/2016 14:41:Lilo Corbin RN) Med Hx Trauma/Violence: No (03/20/2016 14:41:Lilo Corbin RN) Med Hx Blood Transfusion: No (03/20/2016 14:41:Lilo Corbin RN) Med Hx Pulmonary (Asthma,TB): No (03/20/2016 14:41:Lilo Corbin RN) Med Hx Breast: No (03/20/2016 14:41:Lilo Corbin RN) Med Hx INTENSIVIST Surgery: No (03/20/2016 14:41:Lilo Corbin RN) Med Hx Hospitalization/Surgery: Yes (03/20/2016 14:41:Lilo Corbin RN) Med Hx Anesthetic Complications: No (03/20/2016 14:41:Lilo Corbin RN) Med Hx Abnormal Pap Smear: No (03/20/2016 14:41:Lilo Corbin RN) Other Medical Diseases: No (03/20/2016 14:41:Lilo Corbin RN) Med Hx Significant Family Hx: No (03/20/2016 14:41:Lilo Corbin RN) Details of Med/Surg Hx: Surgery: Tonsillectomy; ACL repair 2000 (03/20/2016 14:41:Lilo Corbin RN) INFECTIOUS HISTORY Inf Hx Gonorrhea: No (03/20/2016 14:41:Lilo Corbin RN) Inf Hx Chlamydia: No (03/20/2016 14:41:Lilo Corbin RN) Inf Hx Syphilis: No (03/20/2016 14:41:Lilo Corbin RN) Inf Hx HIV/AIDS: No (03/20/2016 14:41:Lilo Corbin RN) Inf Hx Human Papilloma Virus: No (03/20/2016 14:41:Lilo Corbin RN) Inf Hx Pt/Partner Genital Herpes: No (03/20/2016 14:41:Lilo Corbin RN) Inf Hx Tuberculosis/Exposure: No (03/20/2016 14:41:Lilo Corbin RN) Inf Hx Hepatitis B,C: No (03/20/2016 14:41:Lilo Corbin RN) Inf Hx Rash or Viral Illness: No (03/20/2016 14:41:Lilo Corbin RN) GENETIC HISTORY Gen Hx Age >=35 at LEANN: No (03/20/2016 14:41:Lilo Corbin RN) Gen Hx Thalassemia: No (03/20/2016 14:41:Lilo Corbin RN) Gen Hx Congenital Heart Defect: No (03/20/2016 14:41:Lilo Corbin RN) Gen Hx Neural Tube Defect: No (03/20/2016 14:41:Lilo Corbin RN) Gen Hx Down's Syndrome: No (03/20/2016 14:41:Lilo Corbin RN) Gen Hx Freeman-Sachs: No (03/20/2016 14:41:Lilo Corbin RN) Gen Hx Ethan: No (03/20/2016 14:41:Lilo Corbin RN) Gen Hx Familial Dysautonomia: No (03/20/2016 14:41:Lilo Corbin RN) Gen Hx Sickle Cell Disease/Trait: No (03/20/2016 14:41:Lilo Corbin RN) Gen Hx Hemophilia/Blood Disorder: No (03/20/2016 14:41:Lilo Corbin RN) Gen Hx Muscular Dystrophy: No (03/20/2016 14:41:Lilo Corbin RN) Gen Hx Cystic Fibrosis: No (03/20/2016 14:41:Lilo Corbin RN) Gen Hx Huntingtons Chorea: No (03/20/2016 14:41:Lilo Corbin RN) Gen Hx Mental Retardation/Autism: No (03/20/2016 14:41:Lilo Corbin RN) Gen Hx Tested for Fragile X: No (03/20/2016 14:41:Lilo Corbin RN) Gen Hx Other Inher/Chromosomal: No (03/20/2016 14:41:Lilo Corbin RN) Gen Hx Maternal Metabolic DO: No (03/20/2016 14:41:Lilo Corbin RN) Gen Hx Pt Father or FOB Defect: No (03/20/2016 14:41:Lilo Corbin RN) Gen Hx Other Genetic History: No (03/20/2016 14:41:Lilo Corbin RN) Gen Hx Drugs/Meds since LMP: No (03/20/2016 14:41:Lilo Corbin RN)
--- NOTE | 2016-05-12 06:00 | L&D Current Admission ---
Current Admit Datetime Report Generated by CPN: 05/12/2016 06:00 ADMISSION INFORMATION Current Admit Date/Time: 05/09/2016 19:34 (03/20/2016 14:56:Tasia Adhikari) Reason for Admission: Induction of Labor (03/20/2016 14:56:Tasia Adhikari) Chief Complaint: Scheduled Induction of Labor (05/09/2016 19:36:Tasia Onofre) EGA per Dates: 38.0 (03/20/2016 14:56:QS system process) Method of Arrival: Ambulatory (03/20/2016 14:56:Tasia Adhikari) Admitted From: Home (03/20/2016 14:56:Tasia Adhikari) Records Available: Yes (03/20/2016 14:56:Tasia Adhikari) General Admission Information: Reviewed (03/20/2016 14:56:Tasia Adhikari) BELONGINGS/ADVANCED DIRECTIVES Other Belongings: see consent sheet (03/20/2016 14:56:Tasia Adhikari) Advance Direct for Healthcare: No, and Wants No Information (03/20/2016 14:56:Tasia Adhikari) Durable Power of Hotel General Manager: No (03/20/2016 14:56:Tasia Adhikari) Organ Donor: No (03/20/2016 14:56:Tasia Adhikari) Pt Rights Information Given: Yes (03/20/2016 14:56:Tasia Adhikari) Pt Understands Pt Rights: Yes (03/20/2016 14:56:Tasia Adhikari) Patient Rights Comments: patient access (03/20/2016 14:56:Tasia Adhikari) LEARNING ASSESSMENT Knowledge Level: Understands L_D Process (03/20/2016 14:56:Tasia Adhikari) Barriers to Learning: None (03/20/2016 14:56:Tasia Adhikari) Learning Readiness: Motivated (03/20/2016 14:56:Tasia Adhikari) Learns Best By: 1 to 1 Instruction (03/20/2016 14:56:Tasia Adhikari) Learning Needs: Labor and Delivery Process; Pain Management; Symptoms to Report; Treatment Plan; Medication (03/20/2016 14:56:Tasia Adhikari) DOMESTIC VIOLANCE SCREENING Dom Viol Threatened/Hurt: No (03/20/2016 14:56:Tasia Adhikari) Hx of Abuse/Neglect past 2yrs: No (03/20/2016 14:56:Tasia Adhikari) Feel Unsafe Going Home: No (03/20/2016 14:56:Tasia Adhikari) Addt'l Observ Indicating Abuse: No (03/20/2016 14:56:Tasia Adhikari) Reason Unable to Complete Screen: N/A, Screen Completed (03/20/2016 14:56:Tasia Adhikari) Considered Personal Harm/Suicide: No (03/20/2016 14:56:Tasia Adhikari) NUTRITIONAL/FUNCTIONAL SCREENING Problem with Appetite >5 Days: No (03/20/2016 14:56:Tasia Adhikari) Chew/Swallow Difficulties: No (03/20/2016 14:56:Tasia Adhikari) Inappropriate Wt Gain/Loss: No (03/20/2016 14:56:Tasia Adhikari) Presence Skin Breakdown/Ulcer: No (03/20/2016 14:56:Tasia Adhikari) Special Diet: No (03/20/2016 14:56:Tasia Adhikari) Pt Requests Nuclear Radiation Engineer Visit: No (03/20/2016 14:56:Tasia Adhikari) Hx of Any of the Following?: N/A (03/20/2016 14:56:Tasia Adhikari) New Diagnosis of: N/A (03/20/2016 14:56:Tasia Adhikari) Requires Assist w/Ambulation: No (03/20/2016 14:56:Tasia Adhikari) Uses Assist Device to Ambulate: No (03/20/2016 14:56:Tasia Adhikari) Pt Requires Help w/ADL's: No (03/20/2016 14:56:Tasia Adhikari)
[2016-05-12] MEDS: IBUPROFEN 800 MG TABLET PO SCH ×3 (06:03→21:07)
--- NOTE | 2016-05-12 06:15 | L&D Care Plan ---
LD CARE PLANS Datetime Report Generated by CPN: 05/12/2016 06:15 Datetime: 05/09/2016 19:46 State: Risk For (Carlos Godoy RN) Related To: Labor and Delivery Process; Complication(s) of ; Treatment and Procedures (Carlos Godoy RN) Goal(s): Patients Pain will be Assessed and Managed; Patient will Verbalize Adequate Relief of Pain or the Ability to Floris with Current Pain (Carlos Godoy RN) Interventions: Assess Pain Severity on Scale of 0 (None) to 5 (Severe); Assess Type, Location and Intensity of Pain Each Time Client Reports Discomfort and Notify Provider if Unusal Pain Develops; Encourage Proper Breathing and Relaxation Techniques; Offer Alternatives Such as Repositioning, Calm Environment, Massages, Diversional Activities, Ice Pack, Splinting, and Ambulation; Administer Analgesics as Ordered; Assist with Epidural Placement as Appropriate; Evaluate Therapeutic Effectiveness of Medication and Treatments (Carlos Godoy RN) Outcome: Patient will Report Absence or Relief of Pain Consistent with Established Pain Goal (Carlos Godoy RN) Status: Ongoing (Carlos Godoy RN) Outcome: Patient will have a Decrease in Signs and Symptoms of Discomfort (Carlos Godoy RN) Status: Ongoing (Carlos Godoy RN) Outcome: Pain will be Controlled During Procedures (Carlos Godoy RN) Status: Ongoing (Carlos Godoy RN) State: Risk For (Carlos Godoy RN) Related To: Labor and Delivery Process; Perceived or Actual Threat to ; Medical Interventions; Significant Life Event (Carlos Godoy RN) Goal(s): Patient will have Decreased Anxiety and be able to Function at Acceptable Levels (Carlos Godoy RN) Interventions: Assess Verbal and Nonverbal Behavioral Indicators of Anxiety; Assist Patient to Identify and Verbalize Symptoms of Anxiety; Identify and Demonstrate Techniques to Control Anxiety; Assist Patient with Coping Mechanisms to Manage Anxiety; Provide Theraputic Touch for the Patient; Explain to Patient, Using a Calm Reassuring Approach and Nonmedical Terms, All Activities, Procedures, and Concerns (Carlos Godoy RN) Outcome: Patient will Identify, Verbalize and Demonstrate Techniques to Control Anxiety (Carlos Godoy RN) Status: Ongoing (Carlos Godoy RN) Outcome: Patient's Posture, Facial Expressions, Gestures and Activity Level will Reflect Decreased Anxiety (Carlos Godoy RN) Status: Ongoing (Carlos Godoy RN) Outcome: Patient will Verbalize a Sense of Control and/or Acceptance of the Situation (Carlos Godoy RN) Status: Ongoing (Carlos Godoy RN) Outcome: Patient will Identify and Utilize Support Person (Carlos Godoy RN) Status: Ongoing (Carlos Godoy RN) State: Risk For (Carlos Godoy RN) Related To: Labor and Delivery Process; Treatment and Procedures; Feeding and Care (Carlos Godoy RN) Goal(s): Patient will Accurately Verbalize Understanding of Plan of Care and Treatment; Patient and Family will Accurately Verbalize Understanding of the Disease Process (Carlos Godoy RN) Interventions: Assess Motivation and Willingness of Patient/Family to Learn; Assess Preferred Learning Mode: One to One Instruction, Reading, Videos, Group Discussion or Demonstration; Assess Barriers to Learning: Pain, Emotional State, Language Barrier, Cognitive Impairment, Visual or Hearing Deficits; Discuss Therapy and/or Treatment Options, Describe Rationale Behind Management, Therapy and Treatment Recommendations (Carlos Godoy RN) Outcome: Patient and Family will Verbalize Understanding of Condition, Treatment and Signs and Symptoms to Report (Carlos Godoy RN) Status: Ongoing (Carlos Godoy RN) Outcome: Patient will Identify Perceived Learning Needs and Express Motivation to Learn (Carlos Godoy RN) Status: Ongoing (Carlos Godoy RN) Outcome: Patient will Verbalize Understanding of Desired Content, and/or Performs Desired Skill Prior to Discharge (Carlos Godoy RN) Status: Ongoing (Carlos Godoy RN) State: Risk For (Carlos Godoy RN) Related To: Prolonged Labor or Induction; Invasive Procedures (Carlos Godoy RN) Goal(s): The Patient will be Free of Infection, Vital Signs Stable and Lab Work within Normal Parameters (Carlos Godoy RN) Interventions: Instruct and Reinforce Proper Handwashing, Hygiene, and Care Techniques to Patient and Family; Monitor Vital Signs; Monitor Patient for the Following Signs of Infection: Fever, Abdominal Tenderness, Unusual Discharge; Monitor Aminiotic Fluid, Urine and Lochia for Color and Odor; Assess IV Sites per Hospital Policy (Carlos Godoy RN) Outcome: Patient will Remain Free of Infection (Carlos Godoy RN) Status: Ongoing (Carlos Godoy RN) Outcome: Infection will be Recognized Early to Allow for Prompt Treatment (Carlos Godoy RN) Status: Ongoing (Carlos Godoy RN) Outcome: Patient will have Vital Signs Within Expected Range (Carlos Godoy RN) Status: Ongoing (Carlos Godoy RN) State: Actual (Carlos Godoy RN) Nursing Diagnosis or r/t: Breast Feeding (Carlos Godoy RN) Goal(s): Patient will breastfeed at least 8 times in 24 hours (Carlos Godoy RN) Interventions: Support parents in efforts (Carlos Godoy RN) Outcome Status: Ongoing (Carlos Godoy RN)
[2016-05-12 06:49] LABS: HEMATOCRIT 30.7 % (36.0-47.0); HEMOGLOBIN 10.4 g/dL (12.0-15.5); HGB HCT DIFFERENCE 0.5; MEAN CORPUSCULAR HGB CONC 33.9 g/dL (32.0-36.0); MEAN CORPUSCULAR VOLUME 89 fl (80-97); RED BLOOD COUNT 3.47 10^6/uL (3.72-5.28); RED CELL DISTRIBUTION WIDTH 15.9 % (11.5-14.0); WHITE BLOOD COUNT 9.5 10^3/uL (4.0-10.5)
--- NOTE | 2016-05-12 08:10 | Delivery Summary ---
Del Sum A-C Datetime Report Generated by CPN: 05/12/2016 08:10 ADMISSION DATA Chief Complaint: Scheduled Induction of Labor Indication for Induction: Chronic Hypertension Admission Impression: Term, Intrauterine ; Induction of Labor Admit Provider Comments: 39w induction for cHTN. Cervidil tonight. gbs neg DELIVERY PERSONNEL Delivery Doctor:: Fatuma Cornell MD Anesthesiologist:: Parminder Mcgowan MD Labor and Delivery Nurse:: Katy Farfan RNsolar crew member Nurse:: Marissa Jean-Paul, RN Yarn Mercerizer Operator Helper/MEDIA MONITOR: Moncho Ertel, MEDIA MONITOR MATERNAL INFORMATION Delivery Anesthesia: Epidural Medications After Delivery: Pitocin Bolus-Please Comment Meds After Delivery Comment: pitocin 20 units in 1000 mL NSS Estimated Blood Loss (ml): 200 Maternal Complications: None LABOR SUMMARY EDC: 05/23/2016 00:00 No. Babies in Womb: 1 Attempted: No Labor Anesthesia: Epidural LABOR INFORMATION Reason for Induction: Chronic Hypertension; Maternal Diabetes Onset of Labor: 05/03/2016 19:23 Complete Dilatation: 05/11/2016 06:49 Cervical Ripening Agents: Cytotec @ (Annotations: 25mcg) Oxytocin: Induction Group B Beta Strep: negative MEMBRANES Membranes Rupture Method: Artificial Rupture of Membranes: 05/10/2016 18:09 Length of Rupture (hr): 12.80 Amniotic Fluid Color: Clear Amniotic Fluid Amount: Scant Amniotic Fluid Odor: Normal STAGES OF LABOR Stage 1 hr: 179 Stage 1 min: 26 Stage 2 hr: 0 Stage 2 min: 8 Stage 3 hr: 0 Stage 3 min: 4 Total Time in Labor hr: 179 Total Time in Labor min: 38 VAGINAL DELIVERY Episiotomy: None Laceration Extension: N/A Laceration Type: None Laceration Repair: Not Applicable Sponge Count Correct: N/A Sharps Count Correct: N/A CSECTION DELIVERY Primary Indication: N/A Secondary Indication: N/A CSection Incidence: N/A Labor: N/A Elective: N/A CSection Incision: N/A BABY A INFORMATION Infant Delivery Date/Time: 05/11/2016 06:57 Method of Delivery: Vaginal Born in Route : No : N/A Forceps: N/A Vacuum Extraction: N/A Shoulder Dystocia : No PRESENTATION/POSITION BABY A Presentation: Cephalic Cephalic Presentation: Vertex Vertex Position: Left Occipital Anterior Breech Presentation: N/A PLACENTA INFORMATION BABY A Placenta Delivery Time : 05/11/2016 07:01 Placenta Method of Delivery: Spontaneous Placenta Status: Delivered SCORES BABY A Heart Rate 1 min: >100 bpm Resp Effort 1 min: Good Cry Reflex Irritability 1 min: Cough or Sneeze or Pulls Away Muscle Tone 1 min: Active Motion Color 1 min: Body [place], Extremities Blue Resuscitation Effort 1 min: Tactile Stimulation SCORE 1 MIN: 9 Heart Rate 5 min: >100 bpm Resp Effort 5 min: Good Cry Reflex Irritability 5 min: Cough or Sneeze or Pulls Away Muscle Tone 5 min: Active Motion Color 5 min: Body [place], Extremities Blue Resuscitation Effort 5 min: Tactile Stimulation SCORE 5 MIN: 9 INFORMATION BABY A Gestational Age at Delivery: 38.2 Gestational Status: Early Term- 37- 38.6 Weeks Outcome : Liveborn Infant Condition : Stable Sex: Female IDENTIFICATION BABY A Verification Date/Time: 05/11/2016 08:37 ID Band Number: [id number] Mother's Name Verified: Yes RN Verifying Infant: D Bellavance RNC Additional Verifying Personnel: A Delmore RN WEIGHT/LENGTH BABY A Infant Birthweight (gm): 2825 Infant Weight (lb): 6 Weight (oz): 4 Length (in): 18.25 Infant Length (cm): 46.36 CORD INFORMATION BABY A Nuchal Cord : N/A Cord Blood Taken: Yes-For Eval (Mom's Blood Type - or O+) Suction: Mouth; Nose ASSESSMENT BABY A Infant Complications: Multiple Late Decels; Multiple Variable Decels Physical Findings at Delivery: Within Normal Limits Infant Respirations: Appears Normal Skin to Skin: Yes Skin to Skin Time (min): 30 Window Sash Installer/ALS Called : No Care By: MEGAN Winston Transferred To: Nursery SIGNATURES Signature: with User ID: [email or web address]
--- NOTE | 2016-05-12 10:02 | PDOC PROGRESS REPORT ---
Subjective-OB Subjective: Post Delivery Day: 1 27 year old. Denies any needs at this time, pt desires early discharge, denies headache, epigastric pain, and visual dist. lochia stable, denies pain, baby is feeding well. Physical Exam (OB) Vital Signs: Temp Pulse Resp BP Pulse Ox 97.7 F 90 16 124/84 100 05/12/16 08:15 05/12/16 08:15 05/12/16 08:15 05/12/16 08:15 05/12/16 08:15 - PIH/Pre-Eclampsia DTR's: 2 + Clonus: Negative Headache: Absent Epigastric Pain: No Visual Changes: No - Lochia Lochia Amount: Small 10-25 ml Lochia Color: Rubra/Red - Abdomen Description: Soft, Round Hernia Present: No Fundal Description: Firm, Midline Fundal Height: u/u - u/2 Objective-Diagnostic Laboratory: 05/12/16 06:44 05/12/16 05/12/16 06:44 06:44 WBC 9.5 RBC 3.47 L Hgb 10.4 L Hct 30.7 L MCV 89 MCH 30.0 MCHC 33.9 RDW 15.9 H Plt Count 150 Blood Type O NEGATIVE Assessment and Plan(PN) - Assessment and Plan (1) Chronic hypertension Is this a current diagnosis for this admission?: YesPlan: 1 week f/u @ a bp check reviewed pre-e, htn s/sx. (2) Vaginal delivery Is this a current diagnosis for this admission?: YesPlan: routine pp care d/c home if baby is d/c - Time Spent with Patient Time with patient: Less than 15 minutes Critical Time spent with patient: Less than 15 minutes Medications reviewed and adjusted accordingly: Yes
--- NOTE | 2016-05-12 10:03 | PDOC DISCHARGE SUMMARY ---
Final Diagnosis Discharge Date: 05/12/16 - Final Diagnosis (1) Chronic hypertension Is this a current diagnosis for this admission?: Yes (2) Vaginal delivery Is this a current diagnosis for this admission?: Yes Discharge Data - Discharge Medication Home Medications: Calcium Carbonate [Tums] 1 tab.chew PO DAILY PRN 03/20/16 Pnv#71/Iron/Folic Acid/Dha [Prena1 Candy Softgel] 1 cap PO DAILY 05/02/16 Valacyclovir HCl [Valtrex] 1 tab PO DAILY 05/08/16 Docusate Sodium [Colace 100 mg Capsule] 100 mg PO BID #60 capsule 05/12/16 Ibuprofen [Motrin 800 mg Tablet] 800 mg PO Q8 #60 tablet 05/12/16 Gestational Age: 38.2 Reason(s) for Admission: Induction of Labor Procedures: NST Intrapartum Procedure(s): Spontaneous Vaginal Delivery - Diagnosis Test Laboratory: Temp Pulse Resp BP Pulse Ox 97.7 F 90 16 124/84 100 05/12/16 08:15 05/12/16 08:15 05/12/16 08:15 05/12/16 08:15 05/12/16 08:15 05/09/16 05/09/16 05/12/16 19:30 20:07 06:44 RBC 3.56 L 3.47 L Hgb 10.7 L 10.4 L Hct 31.1 L 30.7 L Urine Opiates Screen NEGATIVE - Discharge information/Instructions Discharge Activity: Activity As Tolerated, Pelvic Rest, No tub bath Discharge Diet: Regular Disposition: HOME, SELF-CARE Follow up with: [facility] in: 1, Weeks
[2016-05-12] MEDS: DOCUSATE SODIUM 100 MG CAPSULE PO SCH ×2 (10:12→17:43)
[2016-05-12] MEDS: FERROUS SULFATE 325 MG TABLET PO SCH ×2 (10:12→17:43)
[2016-05-12] MEDS: SENNOSIDES/DOCUSATE 8.6-50 MG 1 EACH TABLET PO SCH (10:12)
[2016-05-12] MEDS: PRENATAL VITAMIN W-O CA NO5/FE FUMARATE/FA CAPSULE PO SCH (10:12)
[2016-05-12] MEDS ORDERED: DIPHENHYDRAMINE HCL 25 MG CAPSULE PO ONE (22:00)
[2016-05-13] MEDS: IBUPROFEN 800 MG TABLET PO SCH (05:53)
--- NOTE | 2016-05-13 06:00 | L&D General Admission ---
General Admit Datetime Report Generated by CPN: 05/13/2016 06:00 INFORMATION Patient Age: 25 (03/07/2016 08:19:QS system process) EDC: 05/23/2016 00:00 (03/20/2016 14:41:Lilo Corbin RN) : 3 (03/20/2016 14:41:Lilo Corbin RN) Para: 1 (03/20/2016 14:41:Lilo Corbin RN) Term: 1 (03/20/2016 14:41:Lilo Corbin RN) : 0 (03/20/2016 14:41:Lilo Corbin RN) Spontaneous Abortions: 1 (03/20/2016 14:41:Lilo Corbin RN) Livin (03/20/2016 14:41:Lilo Corbin RN) Cesareans: 0 (03/20/2016 14:41:Lilo Corbin RN) VBACs: 0 (03/20/2016 14:41:Lilo Corbin RN) Ectopic: 0 (03/20/2016 14:41:Lilo Corbin RN) Multiple Births: 0 (03/20/2016 14:41:Lilo Corbin RN) Baby, Number in Womb: 1 (03/20/2016 14:41:Lilo Corbin RN) CARE Primary Cupola Melter: [facility] (03/20/2016 14:41:Lilo Corbin RN) Month of 1st Visit: 09/2015 (03/20/2016 14:41:Lilo Corbin RN) Adequate Care: Yes (03/20/2016 14:41:Lilo Corbin RN) Prepregnancy Weight (lb): 140 (03/20/2016 14:41:Lilo Corbin RN) Prepregnancy Weight (kg): 63.6 (03/20/2016 14:41:QS system process) Height (in): 62 (05/12/2016 13:35:QS system process) ALLERGIES Medication Allergy: No (03/20/2016 14:41:Lilo Corbin RN) Medication Allergies: latex/swelling (05/08/2016) (05/08/2016 16:36:QS system process) Latex Allergy: Latex Allergies (03/20/2016 14:41:Lilo Corbin RN) Food Allergies: N/A (03/20/2016 14:41:Lilo Corbin RN) Environmental Allergies: N/A (03/20/2016 14:41:Lilo Corbin RN) COMMUNICATION Primary Language: Slovenian (03/20/2016 14:41:Lilo Corbin RN) Medical Tx Preferred Language: Slovenian (03/20/2016 14:41:Lilo Corbin RN) DEMOGRAPHICS Address: [address] [place] [id number] (03/07/2016 08:19:QS system process) Zipcode: [address] (03/07/2016 08:19:QS system process) Home (03/07/2016 08:19:QS system process) Work (05/08/2016 16:12:QS system process) SSN: [id number] (03/07/2016 08:19:QS system process) Next of Kin Name: CARLITOS MARTINES (03/07/2016 08:19:QS system process) Next of Kin (03/07/2016 08:19:QS system process) Next of Kin Relationship: SPO (03/07/2016 08:19:QS system process) Date of : 1990 (03/07/2016 08:19:QS system process) Marital Status: (03/07/2016 08:19:QS system process) Sex: Female (03/07/2016 08:19:QS system process) Occupation: Other (03/20/2016 14:41:MEGAN Jnue) 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 [id number] (03/20/2016 14:41:Lilo Corbin RN) Marijuana: No (03/20/2016 14:41:Lilo Corbin RN) Cocaine: No (03/20/2016 14:41:Lilo Corbin RN) Other Illicit Drugs: No (03/20/2016 14:41:Lilo Corbin RN) VACCINE HISTORY Influenza Vaccine: Yes (03/20/2016 14:41:Lilo Corbin RN) Pneumococcal Vaccine: No (03/20/2016 14:41:Lilo Corbin RN) Tetanus Vaccine: Yes (03/20/2016 14:41:Lilo Corbin RN) Tdap Vaccine: Yes (03/20/2016 14:41:Lilo Corbin RN) Hepatitis B Vaccine: Yes (03/20/2016 14:41:Lilo Corbin RN) Rn Team Leader: [facility] (03/20/2016 14:41:MEGAN June) Feeding Preference: Breast (03/20/2016 14:41:Lilo Corbin RN) Benefit of Breast Feed Discussed: Yes (03/20/2016 14:41:Lilo Corbin RN) Circumcision: N/A (03/20/2016 14:41:Lilo Corbin RN) Classes Attended: No (03/20/2016 14:41:Lilo Corbin RN) Tubal Ligation: No (03/20/2016 14:41:Lilo Corbin RN) Tubal Authorization Signed: N/A (03/20/2016 14:41:Lilo Corbin RN) Consent: N/A (03/20/2016 14:41:Liol Corbin RN) Consent Signed: N/A (03/20/2016 14:41:Lilo Corbin RN) Pain Management Plans: Medications; Epidural (03/20/2016 14:41:Lilo Corbin RN) Plans for Labor and Delivery: None (03/20/2016 14:41:Lilo Corbin RN) Support Person: Carlitos Bradleyue (03/20/2016 14:41:Lilo Corbin RN) Support Person Relationship: (03/20/2016 14:41:Lilo Corbin RN) Cultural/Spritual Practice: No (03/20/2016 14:41:Lilo Corbin RN) Spir/Cult Dietary Needs: No (03/20/2016 14:41:Lilo Corbin RN) LIVING SITUATION/DISCHARGE PLAN Living Arrangements: House (03/20/2016 14:41:Lilo Corbin RN) Adequate Access to:: Electric; Heat; Refrigeration; Plumbing/Running water; Phone; Transportation (03/20/2016 14:41:Lilo Corbin RN) WIC Program: No (03/20/2016 14:41:Lilo Corbin RN) Discharge Special Events Coordinator Person: (03/20/2016 14:41:Lilo Corbin RN) Person to Help after Discharge: (03/20/2016 14:41:Lilo Corbin RN) Currently Using Commun Resources: No (03/20/2016 14:41:Lilo Corbin RN) Outside Agency/Seed Production Field Supervisor: No (03/20/2016 14:41:Lilo Corbin RN) Car Seat for Discharge: Yes (03/20/2016 14:41:Lilo Corbin RN) Adoption Requested: No (03/20/2016 14:41:Lilo Corbin RN) Pt Contact w/ Post : N/A (03/20/2016 14:41:Lilo Corbin RN) LABS Blood Type: O Negative (03/20/2016 14:41:Lilo Corbin RN) Antibody Screen: Negative (03/20/2016 14:41:Lilo Corbin RN) Rho(G) this : Yes (03/20/2016 14:41:Lilo Corbin RN) Date Rho(G) Given: 02/29/16 (03/20/2016 14:41:Lilo Corbin RN) Hemoglobin: 10.4 L (05/12/2016 06:44:QS system process) Hematocrit: 30.7 L (05/12/2016 06:44:QS system process) MCV: 89 (05/12/2016 06:44:QS system process) Group Beta Strep: negative (03/20/2016 14:41:MEGAN June) Gonorrhea: Negative (03/20/2016 14:41:Fannie Nguyen [facility]) Chlamydia: Negative (03/20/2016 14:41:Fannie Nguyen [facility]) RPR/VDRL: Nonreactive (03/20/2016 14:41:Lilo Corbin RN) HIV Exposure Test: Negative (03/20/2016 14:41:Lilo Corbin RN) Hepatitis B: Negative (03/20/2016 14:41:Lilo Corbin RN) Rubella: Immune (03/20/2016 14:41:Lilo Corbin RN) OB/PREVIOUS HISTORY Previous Procedures: Ultrasound; NST (03/20/2016 14:41:Fannie Nguyen [facility]) Current Procedures: Ultrasound; NST (03/20/2016 14:41:Fannie Nguyen [facility]) History of Previous : No (03/20/2016 14:41:Lilo Corbin RN) History of Gestational Diabetes: No (03/20/2016 14:41:Lilo Corbin RN) History of PIH: No (03/20/2016 14:41:Lilo Corbin RN) History of Incompetent Cervix: No (03/20/2016 14:41:Lilo Corbin RN) History of Placenta Previa/Abrup: No (03/20/2016 14:41:Lilo Corbin RN) History of Macrosomia: No (03/20/2016 14:41:Lilo Corbin RN) History of IUGR: No (03/20/2016 14:41:Lilo Corbin RN) History of Hemorrhage: No (03/20/2016 14:41:Lilo Corbin RN) History of Loss/Stillborn: No (03/20/2016 14:41:Lilo Corbin RN) History of : No (03/20/2016 14:41:Lilo Corbin RN) History of D (Rh) Sensitization: No (03/20/2016 14:41:Lilo Corbin RN) History Recurrent Loss/Stillborn: No (03/20/2016 14:41:Lilo Corbin RN) History Depression/PP Depression: No (03/20/2016 14:41:Lilo Corbin RN) History of Uterine Anomaly/EVONNE: No (03/20/2016 14:41:Lilo Corbin RN) History of Infertility: No (03/20/2016 14:41:Lilo Corbin RN) History of ART Treatment: No (03/20/2016 14:41:Lilo Corbin RN) History of EVONNE: No (03/20/2016 14:41:Lilo Corbin RN) Comments Obstetrical History: G1: 2009 SAB G2: 2011 37.5 weeks baby girl, 7 lb 5 oz G3: Current (03/20/2016 14:41:Lilo Corbin RN) MEDICAL HISTORY Med Hx Diabetes: No (03/20/2016 14:41:Lilo Corbin RN) Med Hx Hypertension: No (03/20/2016 14:41:Lilo Corbin RN) Med Hx Heart Disease: No (03/20/2016 14:41:Lilo Corbin RN) Med Hx Autoimmune Disorder: No (03/20/2016 14:41:Lilo Corbin RN) Med Hx Kidney Disease/UTI: No (03/20/2016 14:41:Lilo Corbin RN) Med Hx Neurologic/Epilepsy: No (03/20/2016 14:41:Lilo Corbin RN) Med Hx Psychiatric Disorders: No (03/20/2016 14:41:Lilo Corbin RN) Med Hx Hepatitis/Liver Disease: No (03/20/2016 14:41:Lilo Corbin RN) Med Hx Varicosities/Phlebitis: No (03/20/2016 14:41:Lilo Corbin RN) Med Hx Thyroid Dysfunction: No (03/20/2016 14:41:Lilo Corbin RN) Med Hx Trauma/Violence: No (03/20/2016 14:41:Lilo Corbin RN) Med Hx Blood Transfusion: No (03/20/2016 14:41:Lilo Corbin RN) Med Hx Pulmonary (Asthma,TB): No (03/20/2016 14:41:Lilo Corbin RN) Med Hx Breast: No (03/20/2016 14:41:Lilo Corbin RN) Med Hx VIROLOGY TEACHER Surgery: No (03/20/2016 14:41:Lilo Corbin RN) Med Hx Hospitalization/Surgery: Yes (03/20/2016 14:41:Lilo Corbin RN) Med Hx Anesthetic Complications: No (03/20/2016 14:41:Lilo Corbin RN) Med Hx Abnormal Pap Smear: No (03/20/2016 14:41:Lilo Corbin RN) Other Medical Diseases: No (03/20/2016 14:41:Lilo Corbin RN) Med Hx Significant Family Hx: No (03/20/2016 14:41:Lilo Corbin RN) Details of Med/Surg Hx: Surgery: Tonsillectomy; ACL repair 2000 (03/20/2016 14:41:Lilo Corbin RN) INFECTIOUS HISTORY Inf Hx Gonorrhea: No (03/20/2016 14:41:Lilo Corbin RN) Inf Hx Chlamydia: No (03/20/2016 14:41:Lilo Corbin RN) Inf Hx Syphilis: No (03/20/2016 14:41:Lilo Corbin RN) Inf Hx HIV/AIDS: No (03/20/2016 14:41:Lilo Corbin RN) Inf Hx Human Papilloma Virus: No (03/20/2016 14:41:Lilo Corbin RN) Inf Hx Pt/Partner Genital Herpes: No (03/20/2016 14:41:Lilo Corbin RN) Inf Hx Tuberculosis/Exposure: No (03/20/2016 14:41:Lilo Corbin RN) Inf Hx Hepatitis B,C: No (03/20/2016 14:41:Lilo Corbin RN) Inf Hx Rash or Viral Illness: No (03/20/2016 14:41:Lilo Corbin RN) GENETIC HISTORY Gen Hx Age >=35 at LEANN: No (03/20/2016 14:41:Lilo Corbin RN) Gen Hx Thalassemia: No (03/20/2016 14:41:Lilo Corbin RN) Gen Hx Congenital Heart Defect: No (03/20/2016 14:41:Lilo Corbin RN) Gen Hx Neural Tube Defect: No (03/20/2016 14:41:Lilo Corbin RN) Gen Hx Down's Syndrome: No (03/20/2016 14:41:Lilo Corbin RN) Gen Hx Freeman-Sachs: No (03/20/2016 14:41:Lilo Corbin RN) Gen Hx Ethan: No (03/20/2016 14:41:Lilo Corbin RN) Gen Hx Familial Dysautonomia: No (03/20/2016 14:41:Lilo Corbin RN) Gen Hx Sickle Cell Disease/Trait: No (03/20/2016 14:41:Lilo Corbin RN) Gen Hx Hemophilia/Blood Disorder: No (03/20/2016 14:41:Lilo Corbin RN) Gen Hx Muscular Dystrophy: No (03/20/2016 14:41:Lilo Corbin RN) Gen Hx Cystic Fibrosis: No (03/20/2016 14:41:Lilo Corbin RN) Gen Hx Huntingtons Chorea: No (03/20/2016 14:41:Lilo Corbin RN) Gen Hx Mental Retardation/Autism: No (03/20/2016 14:41:Lilo Corbin RN) Gen Hx Tested for Fragile X: No (03/20/2016 14:41:Lilo Corbin RN) Gen Hx Other Inher/Chromosomal: No (03/20/2016 14:41:Lilo Corbin RN) Gen Hx Maternal Metabolic DO: No (03/20/2016 14:41:Lilo Corbin RN) Gen Hx Pt Father or FOB Defect: No (03/20/2016 14:41:Lilo Corbin RN) Gen Hx Other Genetic History: No (03/20/2016 14:41:Lilo Corbin RN) Gen Hx Drugs/Meds since LMP: No (03/20/2016 14:41:Lilo Corbin RN)
--- NOTE | 2016-05-13 06:00 | L&D Current Admission ---
Current Admit Datetime Report Generated by CPN: 05/13/2016 06:00 ADMISSION INFORMATION Current Admit Date/Time: 05/09/2016 19:34 (03/20/2016 14:56:Tasia Adhikari) Reason for Admission: Induction of Labor (03/20/2016 14:56:Tasia Adhikari) Chief Complaint: Scheduled Induction of Labor (05/09/2016 19:36:Tasia Onofre) EGA per Dates: 38.0 (03/20/2016 14:56:QS system process) Method of Arrival: Ambulatory (03/20/2016 14:56:Tasia Adhikari) Admitted From: Home (03/20/2016 14:56:Tasia Adhikari) Records Available: Yes (03/20/2016 14:56:Tasia Adhikari) General Admission Information: Reviewed (03/20/2016 14:56:Tasia Adhikari) BELONGINGS/ADVANCED DIRECTIVES Other Belongings: see consent sheet (03/20/2016 14:56:Tasia Adhikari) Advance Direct for Healthcare: No, and Wants No Information (03/20/2016 14:56:Tasia Adhikari) Durable Power of Fiberglass Boat Assembly Supervisor: No (03/20/2016 14:56:Tasia Adhikari) Organ Donor: No (03/20/2016 14:56:Tasia Adhikari) Pt Rights Information Given: Yes (03/20/2016 14:56:Tasia Adhikari) Pt Understands Pt Rights: Yes (03/20/2016 14:56:Tasia Adhikari) Patient Rights Comments: patient access (03/20/2016 14:56:Tasia Adhikari) LEARNING ASSESSMENT Knowledge Level: Understands L_D Process (03/20/2016 14:56:Tasia Adhikari) Barriers to Learning: None (03/20/2016 14:56:Tasia Adhikari) Learning Readiness: Motivated (03/20/2016 14:56:Tasia Adhikari) Learns Best By: 1 to 1 Instruction (03/20/2016 14:56:Tasia Adhikari) Learning Needs: Labor and Delivery Process; Pain Management; Symptoms to Report; Treatment Plan; Medication (03/20/2016 14:56:Tasia Adhikari) DOMESTIC VIOLANCE SCREENING Dom Viol Threatened/Hurt: No (03/20/2016 14:56:Tasia Adhikari) Hx of Abuse/Neglect past 2yrs: No (03/20/2016 14:56:Tasia Adhikrai) Feel Unsafe Going Home: No (03/20/2016 14:56:Tasia Adhikari) Addt'l Observ Indicating Abuse: No (03/20/2016 14:56:Tasia Adhikari) Reason Unable to Complete Screen: N/A, Screen Completed (03/20/2016 14:56:Tasia Adhikari) Considered Personal Harm/Suicide: No (03/20/2016 14:56:Tasia Adhikari) NUTRITIONAL/FUNCTIONAL SCREENING Problem with Appetite >5 Days: No (03/20/2016 14:56:Tasia Adhikari) Chew/Swallow Difficulties: No (03/20/2016 14:56:Tasia Adhikari) Inappropriate Wt Gain/Loss: No (03/20/2016 14:56:Tasia Adhikari) Presence Skin Breakdown/Ulcer: No (03/20/2016 14:56:Tasia Adhikari) Special Diet: No (03/20/2016 14:56:Tasia Adhikari) Pt Requests Valving Machine Operator Visit: No (03/20/2016 14:56:Tasia Adhikari) Hx of Any of the Following?: N/A (03/20/2016 14:56:Tasia Adhikari) New Diagnosis of: N/A (03/20/2016 14:56:Tasia Adhikari) Requires Assist w/Ambulation: No (03/20/2016 14:56:Tasia Adhikari) Uses Assist Device to Ambulate: No (03/20/2016 14:56:Tasia Adhikari) Pt Requires Help w/ADL's: No (03/20/2016 14:56:Tasia Adhikari)
--- NOTE | 2016-05-13 09:02 | PDOC DISCHARGE SUMMARY ---
Final Diagnosis Discharge Date: 05/13/16 - Final Diagnosis (1) Chronic hypertension Is this a current diagnosis for this admission?: Yes (2) Vaginal delivery Is this a current diagnosis for this admission?: Yes Discharge Data - Discharge Medication Home Medications: Calcium Carbonate [Tums] 1 tab.chew PO DAILY PRN 03/20/16 Pnv#71/Iron/Folic Acid/Dha [Prena1 Candy Softgel] 1 cap PO DAILY 05/02/16 Valacyclovir HCl [Valtrex] 1 tab PO DAILY 05/08/16 Docusate Sodium [Colace 100 mg Capsule] 100 mg PO BID #60 capsule 05/12/16 Ibuprofen [Motrin 800 mg Tablet] 800 mg PO Q8 #60 tablet 05/12/16 Gestational Age: 38.2 Reason(s) for Admission: Induction of Labor Intrapartum Procedure(s): Spontaneous Vaginal Delivery - Diagnosis Test Laboratory: Temp Pulse Resp BP Pulse Ox 98.0 F 78 18 128/70 H 99 05/13/16 08:10 05/13/16 08:10 05/13/16 08:10 05/13/16 08:10 05/13/16 08:10 05/09/16 05/09/16 05/12/16 19:30 20:07 06:44 RBC 3.56 L 3.47 L Hgb 10.7 L 10.4 L Hct 31.1 L 30.7 L Urine Opiates Screen NEGATIVE - Discharge information/Instructions Discharge Activity: Activity As Tolerated, No Lifting Over 10 Pounds, Pelvic Rest, No tub bath Discharge Diet: Regular Disposition: HOME, SELF-CARE Follow up with: [facility] in: 1, Weeks
[2016-05-13] MEDS: PRENATAL VITAMIN W-O CA NO5/FE FUMARATE/FA CAPSULE PO SCH (09:23)
[2016-05-13] MEDS: SENNOSIDES/DOCUSATE 8.6-50 MG 1 EACH TABLET PO SCH (09:23)
[2016-05-13] MEDS: FERROUS SULFATE 325 MG TABLET PO SCH (09:23)
[2016-05-13] MEDS: DOCUSATE SODIUM 100 MG CAPSULE PO SCH (09:23)
[2016-05-13 12:10] VITALS: BP 129/78
== END 2016-05-13 12:59 | disposition home or self-care (01) | DRG 774 ==
LOC: LR 19:11 → 2S 05-11 08:54
PROVIDERS: ADMIT Obstetrics & Gynecology; ATTEND Obstetrics & Gynecology
PROC: 3E0P7GC Introduction of Other Therapeutic Substance into Female Reproductive, Via Natural or Artificial Opening (ICD-10-PCS; 2016-05-09)
PROC: 4A1HXCZ Monitoring of Products of Conception, Cardiac Rate, External Approach (ICD-10-PCS; 2016-05-09)
PROC: 10E0XZZ Delivery of Products of Conception, External Approach (ICD-10-PCS; principal; 2016-05-11)
PROC: 3E0234Z Introduction of Serum, Toxoid and Vaccine into Muscle, Percutaneous Approach (ICD-10-PCS; 2016-05-11)
DX: O10.92 Unspecified pre-existing hypertension complicating childbirth (principal); Z37.0 Single live birth; O26.893 Other specified pregnancy related conditions, third trimester; O76 Abnormality in fetal heart rate and rhythm complicating labor and delivery; Z3A.38 38 weeks gestation of pregnancy; Z67.41 Type O blood, Rh negative; Z20.2 Contact with and (suspected) exposure to infections with a predominantly sexual mode of transmission; Z91.040 Latex allergy status; Z87.891 Personal history of nicotine dependence; Z79.899 Other long term (current) drug therapy
CPT/HCPCS: 36415; 80307; 81005; 85025; 85027; 85461; 86592; 86850; 86900; 86901; J2590; J2790; J3490

== ENCOUNTER 2016-11-07 05:34 | Day surgery (SDC) | payer OTHER ==
[2016-11-01 11:34] LABS: HEMATOCRIT 44.6 % (36.0-47.0); HEMOGLOBIN 15.6 g/dL (12.0-15.5); HGB HCT DIFFERENCE 2.2; MEAN CORPUSCULAR HEMOGLOBIN 29.2 pg (27.0-33.4); MEAN CORPUSCULAR VOLUME 83 fl (80-97); RED BLOOD COUNT 5.35 10^6/uL (3.72-5.28); RED CELL DISTRIBUTION WIDTH 13.7 % (11.5-14.0); WHITE BLOOD COUNT 6.3 10^3/uL (4.0-10.5)
[2016-11-01 11:41] LABS: APPEARANCE,URINE SLIGHTLY-CLOUDY; BILIRUBIN,URINE NEGATIVE (NEGATIVE); GLUCOSE, URINE NEGATIVE (NEGATIVE); KETONES,URINE NEGATIVE (NEGATIVE); LEUKOCYTE ESTERASE,URINE NEGATIVE (NEGATIVE); NITRITE,URINE NEGATIVE (NEGATIVE); PROTEIN,URINE NEGATIVE (NEGATIVE); URINE SPECIFIC GRAVITY 1.014; UROBILINOGEN,URINE NEGATIVE mg/dL (<2.0)
[~2016-11-07 05:34] MED LIST: LACTATED RINGERS 1000 ML IV PRN
[2016-11-07] MEDS ORDERED: ALBUTEROL SULFATE 0.083% NEB 2.5 MG/3 ML AMPUL NEB ONE (06:32)
[2016-11-07] MEDS ORDERED: FENTANYL CITRATE INJ/PF 250 MCG/5 ML AMPULE ONE (06:47)
[2016-11-07] MEDS ORDERED: LIDOCAINE 2% INJ-PF (20 MG/ML) 10 ML AMPUL ONE (06:47)
[2016-11-07] MEDS ORDERED: DEXAMETHASONE SOD PHOSPHATE INJ 4 MG/1 ML VIAL ONE (06:48)
[2016-11-07] MEDS ORDERED: MIDAZOLAM 2 MG/2 ML INJ ONE (06:48)
[2016-11-07] MEDS ORDERED: HYDROMORPHONE HCL INJ/PF 2 MG/ML AMPULE ONE (06:48)
[2016-11-07] MEDS ORDERED: ONDANSETRON HCL INJ/PF 4 MG/2 ML SDV ONE (06:48)
[2016-11-07] MEDS ORDERED: KETOROLAC TROMETHAMINE 60 MG/2 ML SDV ONE (06:49)
[2016-11-07] MEDS ORDERED: IBUPROFEN INJ 800 MG/8 ML VIAL IV ONE (06:49)
[2016-11-07] MEDS ORDERED: PROPOFOL INJ 200 MG/20 ML VIAL IV ONE (06:49)
[2016-11-07] MEDS ORDERED: BUPIVACAINE HCL 0.25 % INJ/PF (2.5 MG/1 ML) 30 ML VIAL ONE (07:19)
[2016-11-07] MEDS ORDERED: METHYLENE BLUE 50 MG/10 ML AMPULE ONE (07:19)
[2016-11-07 07:55] LABS: BLOOD UREA NITROGEN 10 mg/dL (7-20); CALCIUM 9.7 mg/dL (8.4-10.2); CARBON DIOXIDE 19 mmol/L (22-30); CHLORIDE 110 mmol/L (98-107); CREATININE RESULT 0.64 mg/dL (0.52-1.25); GLUCOSE 93 mg/dL (75-110); POTASSIUM 3.9 mmol/L (3.6-5.0); SODIUM 142.9 mmol/L (137-145)
[2016-11-07 07:56] LABS: ANION GAP 14 (5-19)
[2016-11-07] MEDS ORDERED: MEPERIDINE HCL/PF INJ 25 MG/1 ML DISP.SYRIN IV PRN (08:27)
[2016-11-07] MEDS ORDERED: ONDANSETRON HCL INJ/PF 4 MG/2 ML SDV IV PRN (08:27)
[2016-11-07] MEDS ORDERED: DIPHENHYDRAMINE HCL 50 MG/ML VIAL IV PRN (08:27)
[2016-11-07] MEDS ORDERED: MORPHINE SULFATE 10 MG/ML INJ IV PRN (08:27)
[2016-11-07] MEDS ORDERED: FENTANYL CITRATE INJ/PF 100 MCG/2 ML AMPUL IV PRN ×3 (08:27)
[2016-11-07] MEDS ORDERED: PROMETHAZINE HCL INJ 25 MG/1 ML VIAL IV PRN ×2 (08:27)
[2016-11-07] MEDS ORDERED: OXYCODONE-ACETAMINOPHEN 5-325 MG TABLET PO PRN ×4 (08:27→09:31)
[2016-11-07] MEDS ORDERED: MORPHINE SULFATE 10 MG/ML INJ IM PRN (09:28)
[2016-11-07] MEDS ORDERED: IBUPROFEN 800 MG TABLET PO PRN (09:29)
[2016-11-07] MEDS ORDERED: SCOPOLAMINE HYDROBROMIDE 1.5 MG PATCH.TD72 ONE (09:43)
--- NOTE | 2016-11-07 09:57 | OPERATIVE REPORT E ---
Operative Report NAME: NIRANJAN MARTINES : 1990 AGE: 26Y DATE OF SURGERY: 11/07/2016 ROOM: PREOPERATIVE DIAGNOSIS: Right ovarian cyst, possible dermoid. POSTOPERATIVE DIAGNOSES: 1. Right paratubal cyst ruptured. 2. Free fluid in the peritoneum. 3. Pelvic adhesion disease. PROCEDURE: Diagnostic laparoscopy with lysis of adhesions. SURGEON: JUJU HUNTER M.D. ANESTHESIA: Dr. Vaca with general. FINDINGS: There were remnants of a ruptured paratubal cyst with free fluid evident in the posterior cul-de-sac near the uterosacral ligaments and multiple adhesions of the uterosacral ligaments in the right ovary pericolic gutter. Both fallopian tubes were relatively healthy in appearance with the exception of the fimbriated ends being mildly clubbed on both fallopian tubes. Both ovaries were normal in appearance with no evidence of ovarian cyst on either one other than the right ovary did appear to have dominant follicular cyst. COMPLICATIONS: None. ESTIMATED BLOOD LOSS: 20 mL. SPECIMENS REMOVED: Paratubal cyst wall and peritoneal fluid from the posterior cul-de-sac. PROCEDURE IN DETAIL: The patient was taken to the operating room, prepared and draped in a normal sterile fashion in the dorsal lithotomy position. Under sterile conditions, a Yousif catheter was placed to gravity. A sterile speculum was then placed into the vagina and the cervix was prepped with Betadine. The cervix was then grasped with a tenaculum when the IUD strings were noted in place to prevent IUD dislodgement. This was performed for uterine manipulation. The gloves were changed and attention was then turned to the upper portion of the case where an umbilical skin incision was made to accommodate a 5 mm trocar. Attempt to insufflate with a Veress needle was not successful due to patient's body habitus, therefore, a cutdown method was utilized and the peritoneal cavity was entered sharply using Chapa. The long 5 mm trocar was then placed and the abdomen was insufflated under direct visualization using the 5 mm scope. Also under direct visualization, the two 5 mm ports were placed on either side of the umbilicus approximately 10 cm from the umbilicus. The uterus and ovaries were identified. Pictures were taken after elevating the ovaries with an atraumatic grasper. The camera was advanced into the posterior cul-de-sac where it was noted that the adhesions were found in the right pericolic gutter. These adhesions were then trimmed with laparoscopic scissors and small paratubal cyst remnants were removed were removed with atraumatic grasper through the assistance port. Intercede was then introduced through the port and placed into the pericolic gutter for an adhesion barrier. The fallopian tubes were inspected carefully and the above findings were noted at that time. Instruments were then removed and under direct visualization, the 3 trocars were removed. The peritoneal cavity was deflated and the skin was closed at all 3 sites with 4-0 Vicryl. The patient tolerated the procedure well. Sponge, lap, and needle counts were correct x2. The tenaculum was removed from the vagina carefully and the IUD was found to be in place. Patient was taken to recovery in stable condition. DICTATING PHYSICIAN: JUJU HUNTER M.D. [id number] PHY#: [id number] ID: [id number] JOB#: [id number] ACCT: [id number] cc:JUJU HUNTER M.D. >
[2016-11-07] MEDS ORDERED: VECURONIUM BROMIDE INJ 10 MG VIAL IV ONE (10:29)
[2016-11-07] MEDS ORDERED: GLYCOPYRROLATE INJ 0.4 MG/2 ML VIAL ONE (10:29)
[2016-11-07] MEDS ORDERED: NEOSTIGMINE METHYLSULFATE 10 MG/10 ML VIAL ONE (10:29)
[2016-11-07] MEDS ORDERED: SUCCINYLCHOLINE CHLORIDE INJ 200 MG/10 ML VIAL ONE (10:29)
[2016-11-07 10:51] VITALS: BP 128/84
== END 2016-11-07 11:15 | disposition home or self-care (01) ==
LOC: OROUT 05:34
PROVIDERS: ATTEND Obstetrics & Gynecology
PROC: 0DNW4ZZ Release Peritoneum, Percutaneous Endoscopic Approach (ICD-10-PCS; principal; 2016-11-07 07:30)
DX: N83.9 Noninflammatory disorder of ovary, fallopian tube and broad ligament, unspecified (principal); N83.8 Other noninflammatory disorders of ovary, fallopian tube and broad ligament; K66.0 Peritoneal adhesions (postprocedural) (postinfection); I10 Essential (primary) hypertension; F17.210 Nicotine dependence, cigarettes, uncomplicated; Z79.899 Other long term (current) drug therapy; Z91.040 Latex allergy status
CPT/HCPCS: 86900; 86901; 36415 ×2; 86850; 85027; 81005; 81025; 80048; 88342 ×2; 88305 ×2; 94640; 49329; C1765; J2250; J1100; J1885; J3010; J3490 ×2; J2550; J0330; J2405; J2704; J1741; 840; J1170; Q9968